=== PATIENT | female | born 1950 | race Hispanic/Latino ===

== ENCOUNTER 2018-03-26 09:17 | Emergency (ER) | payer OTHER ==
[2018-03-26] MEDS ORDERED: ACETAMINOPHEN 325 MG TABLET ONE (10:01)
[2018-03-26 10:16] LABS: Absolute Lymphocytes (CBC) 2.1 K/uL (0.7-4.9); Absolute Monocytes 0.6 K/uL (0.1-1.3); Absolute Neutrophil 9.5 K/uL (1.8-8.0); Basophils % 0.6 % (0-1.3); Eosinophils % 0.5 % (0-4.4); Hematocrit 31.2 % (36.0-45.0); MCH 31.3 pg (27.0-35.0); MCV 92.6 fL (80-100); MPV 6.9 fL (7.6-11.3); Monocytes % 4.8 % (3.3-12.3); RBC Red Blood Cell Count 3.37 M/uL (3.86-4.86)
[2018-03-26 10:19] LABS: Urine Blood TRACE (NEG); Urine Glucose NEGATIVE (NEG); Urine Protein TRACE (NEG); Urine pH 5.5 (5.0-7.0)
[2018-03-26 10:32] LABS: Albumin 3.3 g/dL (3.4-5.0); Bilirubin Direct 0.1 mg/dL (0-0.2); Bilirubin Total 0.4 mg/dL (0.2-1.0); Potassium 3.8 mmol/L (3.5-5.1)
[2018-03-26 10:40] LABS: Urine Amorphous Sediment TRACE /HPF (NONE SEEN); Urine Bacteria <20 /HPF (<20); Urine Culture Reflex Order NOT NEEDED; Urine Mucus SLIGHT /HPF (NONE SEEN)
--- NOTE | 2018-03-26 12:31 | RAD REPORT ---
EXAM DESCRIPTION: CTAbdomen Pelvis W Contrast - 03/26/2018 12:10 pm CLINICAL HISTORY: Abdominal pain. ABD PAIN COMPARISON: No comparisons TECHNIQUE: Biphasic CT imaging of the abdomen and pelvis was performed with 100 ml non-ionic IV cont rast. All CT scans are performed using dose optimization technique as appropriate and may include automated exposure control or mA/KV adjustment according to patient size. FINDINGS: The lung bases are clear.Small hiatal hernia. The liver, spleen, pancreas and kidneys are within normal limits. Mild thickening of both adrenal gla nds noted. No bowel obstruction, free air, free fluid or abscess. 5 cm length of sigmoid colon demonstrates mode rate wall thickening and surrounding inflammatory changes. Several diverticula are present in this re gion. The appendix is not identified as a discrete structure, however, no secondary findings of appen dicitis are identified. No evidence of significant lymphadenopathy. No suspicious bony findings. Lumbar degenerative changes are present, mild. IMPRESSION: 5 cm length of acute diverticulitis involving the sigmoid colon. No evidence of peridive rticular abscess.
[2018-03-26] MEDS ORDERED: METRONIDAZOLE 500mg IVPB 500 MG/100 ML BAG IV ONE (12:51)
[2018-03-26] MEDS ORDERED: CIPROFLOXACIN 400mg IV 400 MG/200 ML BAG IV ONE (12:51)
--- NOTE | 2018-03-26 12:55 | ER ---
Nurse's Notes [facility] Name: Sunni Nava Age: 67 yrs Sex: Female : 1950 Arrival Date: 03/26/2018 Time: 09:21 Bed 17 Private MD: John Justice R Diagnosis: Diverticulitis of large intestine without perforation or abscess without bleeding Presentation: 03/26 09:25 Presenting complaint: Patient states: fever up to 101.0 F, lower abd pain, and nausea aa5 since last night. Pt denies vomiting, denies diarrhea. 09:25 Transition of care: patient was not received from another setting of care. Onset of aa5 symptoms was March 2018. Risk Assessment: Do you want to hurt yourself or someone else? Patient reports no desire to harm self or others. Initial Sepsis Screen: Does the patient meet any 2 criteria? No. Patient's initial sepsis screen is negative. Does the patient have a suspected source of infection? No. Patient's initial sepsis screen is negative. Care prior to arrival: None. 09:25 Method Of Arrival: Ambulatory aa5 09:25 Acuity: KIN 3 aa5 Triage Assessment: 09:40 General: Appears in no apparent distress. uncomfortable, Behavior is calm, cooperative, hj appropriate for age. Pain: Complains of pain in abdomen. GI: Reports lower abdominal pain, upper abdominal pain. Historical: - Allergies: : No Known Allergies; aa5 - Home Meds: :27 citalopram 40 mg tab 1 tab once daily [Active]; lisinopril 30 mg Oral tab 1 tab once aa5 daily [Active]; simvastatin 40 mg Oral tab 1 tab once daily [Active]; - PMHx: 09:27 Hypertension; aa5 - PSHx: :27 ; aa5 - Immunization history:: Adult Immunizations unknown. - Social history:: Smoking status: Patient/guardian denies using tobacco. - Ebola Screening: : No symptoms or risks identified at this time. - Family history:: not pertinent. - Hospitalizations: : No recent hospitalization is reported. Screenin:40 Abuse screen: Denies threats or abuse. Denies injuries from another. Nutritional hj screening: No deficits noted. Tuberculosis screening: No symptoms or risk factors identified. Fall Risk None identified. Assessment: 09:36 General: Appears Behavior is calm, cooperative, appropriate for age. Pain: Complains of sc1 pain in abdomen Pain radiates to back Pain currently is 10 out of 10 on a pain scale. Quality of pain is described as sharp, Pain began 1 week ago Is continuous, Alleviated by rest, Aggravated by walking. Neuro: No deficits noted. Cardiovascular: Denies chest pain, nausea, shortness of breath, vomiting. Respiratory: Breath sounds are clear. GI: Last BM was March 26, 2018. Bowel sounds present X 4 quads. Abd is soft Abdomen is tender to palpation Reports lower abdominal pain, Patient currently denies constipation, diarrhea, nausea, vomiting. 09:41 GI: Bowel sounds present X 4 quads. Abd is soft and non tender. hj 10:10 Reassessment: oral contrast given to patient at this time, and taken all at this time. sc1 CT notified. 11:52 Reassessment: awaiting for CT:. hj 12:05 Reassessment: wheeled to CT:. hj 13:56 Reassessment: Patient and/or family updated on plan of care and expected duration. Pain hj level reassessed. Patient is alert, oriented x 3, equal unlabored respirations, skin warm/dry/pink. D/C instructions given;. Vital Signs: 09:27 BP 147 / 63; Pulse 76; Resp 18 S; Temp 99.3(O); Pulse Ox 97% on R/A; Weight 90.72 kg aa5 (R); Height 5 ft. 1 in. (154.94 cm) (R); Pain 10/10; 10:41 BP 139 / 70; Resp 16; Temp 98.6; Pain 10/10; sc1 11:44 BP 127 / 77; Pulse 88; Resp 16; Pulse Ox 83% on R/A; sc1 12:30 BP 128 / 75; Pulse 89; Resp 18; Pulse Ox 100% on R/A; hj 13:56 BP 126 / 72; Pulse 85; Resp 18; Pulse Ox 100% on R/A; hj 09:27 Body Mass Index 37.79 (90.72 kg, 154.94 cm) aa5 ED Course: 09:21 Patient arrived in ED. mr 09:21 John Justice MD is Private Physician. mr 09:25 Arm band placed on Patient placed in an exam room, on a stretcher. aa5 09:31 Ananda Roe RN is Primary Nurse. hj 09:31 Ramiro Cotton MD is Attending Physician. rn 09:35 Triage completed. aa5 09:41 Patient has correct armband on for positive identification. Placed in gown. Bed in low hj position. Call light in reach. Side rails up X 1. 09:41 Inserted saline lock: 20 gauge in right antecubital area, using aseptic technique. dh3 Blood collected. 09:45 Urine collected: clean catch specimen, cloudy. dh3 11:41 Ananda Roe RN is Primary Nurse. hj 12:[address] via wheelchair. sw 12:10 CT Abd/Pelvis - W/Contrast In Process Unspecified. EDSC 12:12 CT completed. Patient tolerated procedure well. Patient moved back from CT. 12:54 John Justice MD is Referral Physician. rn 13:55 No provider procedures requiring assistance completed. IV discontinued, intact, hj bleeding controlled, No redness/swelling at site. Pressure dressing applied. Administered Medications: 10:01 Drug: Tylenol 650 mg Route: PO; sc1 10:23 Follow up: Response: No adverse reaction hj 13:02 Drug: Cipro 400 mg Volume: 200 ml; Route: IVPB; Infused Over: 60 mins; Site: right sc1 antecubital; 13:54 Follow up: IV Status: Completed infusion hj 13:54 Drug: Flagyl 500 mg Volume: 100 ml; Route: IVPB; Rate: 200 ml/hr; Infused Over: 30 hj mins; Site: right antecubital; 13:54 Follow up: IV Status: Completed infusion Outcome: 12:55 Discharge ordered by . rn 13:55 Discharged to home ambulatory. hj 13:55 Condition: stable 13:55 Discharge instructions given to patient, Instructed on discharge instructions, follow up and referral plans. medication usage, Demonstrated understanding of instructions, follow-up care, medications, Prescriptions given X 4. 13:56 Patient left the ED. Addendum: 03/29/2018 10:13 Addendum: Culture Results: Positive urine culture. Phone call Attempt #1 not a working s s number. Signatures: Dispatcher [facility] Jacqueline Pradhan mr Ramiro Cotton MD MD rn Calderon, Audri, RN RN aa5 Jordyn Hammer RN RN Steph Gallegos Henry, RN RN Radha Epps formerly [facility], 1928–1983 Kadie Jones RN RN sc1 Corrections: (The following items were deleted from the chart) 03/26 09:50 09:49 Inserted saline lock: 20 gauge in right antecubital area, using aseptic dh3 technique. Blood collected. formerly [facility], [facility]
--- NOTE | 2018-03-26 12:55 | EDPHYS ---
Physician Documentation [facility] Name: Sunni Nava Age: 67 yrs Sex: Female : 1950 Arrival Date: 03/26/2018 Time: 09:21 Bed 17 Private MD: John Justice R ED Physician Ramiro Cotton HPI: 03/26 10:02 This 67 yrs old Female presents to ER via Ambulatory with complaints of rn Abdominal Pain. 10:02 The patient presents with abdominal pain in the lower abdomen. Onset: The rn symptoms/episode began/occurred last night. The symptoms do not radiate. Associated signs and symptoms: Pertinent positives: fever, Pertinent negatives: blood in stools, chest pain, diarrhea, headache, hematuria, shortness of breath, vomiting. The symptoms are described as intermittent, sharp. Modifying factors: The symptoms are alleviated by nothing, the symptoms are aggravated by touching the area. Severity of pain: At its worst the pain was mild in the emergency department the pain is unchanged. The patient has not experienced similar symptoms in the past. The patient has not recently seen a physician. Historical: - Allergies: 09: No Known Allergies; aa5 - Home Meds: 09:27 citalopram 40 mg tab 1 tab once daily [Active]; lisinopril 30 mg Oral tab 1 tab once aa5 daily [Active]; simvastatin 40 mg Oral tab 1 tab once daily [Active]; - PMHx: 09: Hypertension; aa5 - PSHx: :27 ; aa5 - Immunization history:: Adult Immunizations unknown. - Social history:: Smoking status: Patient/guardian denies using tobacco. - Ebola Screening: : No symptoms or risks identified at this time. - Family history:: not pertinent. - Hospitalizations: : No recent hospitalization is reported. ROS: 10:02 Constitutional: Negative for fever, chills, and weight loss, Eyes: Negative for injury, rn pain, redness, and discharge, Neck: Negative for injury, pain, and swelling, Cardiovascular: Negative for chest pain, palpitations, and edema, Respiratory: Negative for shortness of breath, cough, wheezing, and pleuritic chest pain, Abdomen/GI: + abd pain, no vomiting/diarrhea MS/Extremity: Negative for injury and deformity, Skin: Negative for injury, rash, and discoloration, Neuro: Negative for headache, weakness, numbness, tingling, and seizure. Exam: 10:02 Constitutional: This is a well developed, well nourished patient who is awake, alert, rn and in no acute distress. Head/Face: Normocephalic, atraumatic. Eyes: Pupils equal round and reactive to light, extra-ocular motions intact. Lids and lashes normal. Conjunctiva and sclera are non-icteric and not injected. Cornea within normal limits. Periorbital areas with no swelling, redness, or edema. Cardiovascular: Regular rate and rhythm with a normal S1 and S2. No gallops, murmurs, or rubs. Normal PMI, no JVD. No pulse deficits. Respiratory: Lungs have equal breath sounds bilaterally, clear to auscultation and percussion. No rales, rhonchi or wheezes noted. No increased work of breathing, no retractions or nasal flaring. Abdomen/GI: soft, mild RLQ/suprapubic/LLQ tenderness, no rebound MS/ Extremity: Pulses equal, no cyanosis. Neurovascular intact. Full, normal range of motion. Equal circumference. Neuro: Awake and alert, GCS 15, oriented to person, place, time, and situation. Cranial nerves II-XII grossly intact. Motor strength 5/5 in all extremities. Sensory grossly intact. Vital Signs: 09:27 BP 147 / 63; Pulse 76; Resp 18 S; Temp 99.3(O); Pulse Ox 97% on R/A; Weight 90.72 kg aa5 (R); Height 5 ft. 1 in. (154.94 cm) (R); Pain 10/10; 10:41 BP 139 / 70; Resp 16; Temp 98.6; Pain 10/10; sc1 11:44 BP 127 / 77; Pulse 88; Resp 16; Pulse Ox 83% on R/A; sc1 12:30 BP 128 / 75; Pulse 89; Resp 18; Pulse Ox 100% on R/A; hj 13:56 BP 126 / 72; Pulse 85; Resp 18; Pulse Ox 100% on R/A; hj 09:27 Body Mass Index 37.79 (90.72 kg, 154.94 cm) aa5 MDM: 09:31 Patient medically screened. rn 12:53 Differential diagnosis: diverticulitis, non-specific abd pain, Ureterolithiasis, rn urinary tract infection. Data reviewed: vital signs, nurses notes, lab test result(s), radiologic studies, CT scan, and as a result, I will discharge patient. Counseling: I had a detailed discussion with the patient and/or guardian regarding: the historical points, exam findings, and any diagnostic results supporting the discharge/admit diagnosis, lab results, radiology results, the need for outpatient follow up, to return to the emergency department if symptoms worsen or persist or if there are any questions or concerns that arise at home. Response to treatment: the patient's symptoms have markedly improved after treatment, and as a result, I will discharge patient. Special discussion: Based on the patient's Hx, exam, and Dx evaluation, there is no indication for emergent surgery or inpatient Tx. It is understood by the patient/guardian that if the Sx's persist or worsen they need to return immediately for re-evaluation. I discussed with the patient/guardian in detail that at this point there is no indication for admission to the hospital. It is understood, however, that if the symptoms persist or worsen the patient needs to return immediately for re-evaluation. 03/26 09:55 Order name: Basic Metabolic Panel; Complete Time: 10:50 03/26 09:55 Order name: CBC with Diff; Complete Time: 10:50 03/26 09:55 Order name: Hepatic Function; Complete Time: 10:50 03/26 09:55 Order name: Lipase; Complete Time: 10:50 03/26 09:55 Order name: Urine Microscopic Only; Complete Time: 10:50 03/26 09:55 Order name: Urine Culture; Complete Time: 07:57 03/26 09:55 Order name: IV Saline Lock; Complete Time: 09:56 03/26 09:55 Order name: Labs collected and sent; Complete Time: 09:56 03/26 09:55 Order name: Urine Dipstick-Ancillary (obtain specimen); Complete Time: 09:56 03/26 09:55 Order name: CT Abd/Pelvis - W/Contrast; Complete Time: 12:40 03/26 10:07 Order name: Urine Dipstick--Ancillary (enter results); Complete Time: 10:50 bd Administered Medications: 10:01 Drug: Tylenol 650 mg Route: PO; sc1 10:23 Follow up: Response: No adverse reaction hj 13:02 Drug: Cipro 400 mg Volume: 200 ml; Route: IVPB; Infused Over: 60 mins; Site: right sc1 antecubital; 13:54 Follow up: IV Status: Completed infusion hj 13:54 Drug: Flagyl 500 mg Volume: 100 ml; Route: IVPB; Rate: 200 ml/hr; Infused Over: 30 hj mins; Site: right antecubital; 13:54 Follow up: IV Status: Completed infusion Disposition: 18 12:55 Discharged to Home. Impression: Diverticulitis of large intestine without perforation or abscess without bleeding. - Condition is Stable. - Discharge Instructions: Diverticulitis. - Prescriptions for Zofran ODT 4 mg Oral tablet,disintegrating - place 1 tablet by TRANSLINGUAL route every 8-10 hours As needed; 20 tablet. Flagyl 500 mg Oral Tablet - take 1 tablet by ORAL route every 8 hours for 10 days; 30 tablet. Tylenol- Codeine #3 300-30 mg Oral Tablet - take 1 tablet by ORAL route every 6 hours As needed; 15 tablet. Cipro 500 mg Oral Tablet - take 1 tablet by ORAL route every 12 hours for 10 days; 20 tablet. - Medication Reconciliation Form, Thank You Letter, Antibiotic Education, Prescription Opioid Use form. - Follow up: John Justice MD; When: As needed; Reason: Recheck today's complaints, Re-evaluation by your physician. - Problem is new. - Symptoms have improved. Signatures: Dispatcher [employer] EDMS Ramiro Cotton MD MD rn Calderon, Audri RN RN aa5 Carolina Degroot NP RECEPTIONIST CLERK 1 Ananda Roe RN RN Kadie Jones RN RN ne1 Corrections: (The following items were deleted from the chart) 13:56 12:55 03/26/2018 12:55 Discharged to Home. Impression: Diverticulitis of large hj intestine without perforation or abscess without bleeding. Condition is Stable. Forms are Medication Reconciliation Form, Thank You Letter, Antibiotic Education, Prescription Opioid Use. Follow up: John Justice; When: As needed; Reason: Recheck today's complaints, Re-evaluation by your physician. Problem is new. Symptoms have improved. rn
[2018-03-26 14:04] VITALS: TEMP 98.6
[2018-03-26 14:06] VITALS: O2SAT 100
[2018-03-26 14:07] VITALS: BP 126/72
== END 2018-03-26 13:56 | disposition home or self-care (01) ==
LOC: ER 09:17
DX: K57.32 Diverticulitis of large intestine without perforation or abscess without bleeding (principal); I10 Essential (primary) hypertension
CPT/HCPCS: 36415; 74177; 80048; 80076; 83690; 85025; 87077; 87086; 87088; 87186; 96365; 96375; 99284; J0744; Q9967; 81003; 81015

== ENCOUNTER 2018-07-07 19:50 | Emergency (ER) | payer OTHER ==
[2018-07-07] MEDS ORDERED: TRAMADOL HCL 50 MG TAB ONE (20:29)
[2018-07-07 20:30] LABS: Urine Blood NEGATIVE (NEG); Urine Glucose NEGATIVE (NEG); Urine Protein NEGATIVE (NEG)
[2018-07-07 20:43] LABS: Urine Bacteria <20 /HPF (<20); Urine Culture Reflex Order NOT NEEDED; Urine RBC NONE SEEN /HPF (NONE SEEN)
[2018-07-07 20:44] LABS: Urine Mucus 1+ /HPF (NONE SEEN)
--- NOTE | 2018-07-07 21:15 | EDPHYS ---
Physician Documentation [facility] Name: Sunni Nava Age: 67 yrs Sex: Female : 1950 Arrival Date: 07/07/2018 Time: 19:52 Bed 24 Private MD: John Justice R ED Physician Wagner Rivas HPI: 07/07 20:20 This 67 yrs old Female presents to ER via Ambulatory with complaints of Back snw Pain. 20:20 The patient presents with pain that is acute, with no known mechanism of injury. The snw symptoms are located in the lumbar area, left mid back and right mid back. Onset: The symptoms/episode began/occurred suddenly. The pain radiates to the left leg. The problem was sustained from unknown cause. Severity of symptoms: At their worst the symptoms were moderate. It is unknown whether or not the patient has had similar symptoms in the past. It is unknown whether or not the patient has recently seen a physician. pt thinks she may have a UTI. Historical: - Allergies: 20:07 No Known Drug Allergies; tl3 - Home Meds: 20:07 citalopram 40 mg tab 1 tab once daily [Active]; lisinopril 30 mg Oral tab 1 tab once tl3 daily [Active]; simvastatin 40 mg Oral tab 1 tab once daily [Active]; - PMHx: 20:07 Hypertension; tl3 - PSHx: 20:07 ; tl3 - Immunization history:: Adult Immunizations up to date, Flu vaccine is up to date. - Social history:: Smoking status: Patient/guardian denies using tobacco, never smoked. - Ebola Screening: : No symptoms or risks identified at this time. ROS: 20:18 Constitutional: Negative for fever, chills, and weight loss, Eyes: Negative for injury, snw pain, redness, and discharge, ENT: Negative for injury, pain, and discharge, Neck: Negative for injury, pain, and swelling, Cardiovascular: Negative for chest pain, palpitations, and edema, Respiratory: Negative for shortness of breath, cough, wheezing, and pleuritic chest pain, Abdomen/GI: Negative for abdominal pain, nausea, vomiting, diarrhea, and constipation, : Negative for injury, bleeding, discharge, and swelling, MS/Extremity: Negative for injury and deformity, Skin: Negative for injury, rash, and discoloration, Neuro: Negative for headache, weakness, numbness, tingling, and seizure, Psych: Negative for depression, anxiety, suicide ideation, homicidal ideation, and hallucinations. 20:18 Back: Positive for pain at rest, pain with movement, of the lumbar area, left mid back and right mid back. Exam: 20:18 Constitutional: This is a well developed, well nourished patient who is awake, alert, snw and in no acute distress. Head/Face: Normocephalic, atraumatic. Eyes: Pupils equal round and reactive to light, extra-ocular motions intact. Lids and lashes normal. Conjunctiva and sclera are non-icteric and not injected. Cornea within normal limits. Periorbital areas with no swelling, redness, or edema. ENT: Nares patent. No nasal discharge, no septal abnormalities noted. Tympanic membranes are normal and external auditory canals are clear. Oropharynx with no redness, swelling, or masses, exudates, or evidence of obstruction, uvula midline. Mucous membranes moist. Neck: Trachea midline, no thyromegaly or masses palpated, and no cervical lymphadenopathy. Supple, full range of motion without nuchal rigidity, or vertebral point tenderness. No Meningismus. Chest/axilla: Normal chest wall appearance and motion. Nontender with no deformity. No lesions are appreciated. Cardiovascular: Regular rate and rhythm with a normal S1 and S2. No gallops, murmurs, or rubs. Normal PMI, no JVD. No pulse deficits. Respiratory: Lungs have equal breath sounds bilaterally, clear to auscultation and percussion. No rales, rhonchi or wheezes noted. No increased work of breathing, no retractions or nasal flaring. Abdomen/GI: Soft, non-tender, with normal bowel sounds. No distension or tympany. No guarding or rebound. No evidence of tenderness throughout. Skin: Warm, dry with normal turgor. Normal color with no rashes, no lesions, and no evidence of cellulitis. MS/ Extremity: Pulses equal, no cyanosis. Neurovascular intact. Full, normal range of motion. Neuro: Awake and alert, GCS 15, oriented to person, place, time, and situation. Cranial nerves II-XII grossly intact. Motor strength 5/5 in all extremities. Sensory grossly intact. Cerebellar exam normal. Normal gait. 20:18 Back: pain, that is moderate, of the lumbar area, left mid back and right mid back, ROM is normal, CVA tenderness, is absent, muscle spasm, is not present. Vital Signs: 20:07 BP 127 / 61; Pulse 67; Resp 18; Temp 98.0(O); Pulse Ox 99% on R/A; Weight 85.73 kg; tl3 Height 5 ft. 7 in. (170.18 cm); 20:28 BP 124 / 64; Pulse 67; Resp 18; Pulse Ox 97% on R/A; Pain 7/10; mg2 21:11 BP 114 / 68; Pulse 67; Resp 18; Pulse Ox 100% on R/A; mg2 21:26 BP 114 / 69; Pulse 70; Resp 17; Pulse Ox 100% on R/A; Pain 2/10; mg2 20:07 Body Mass Index 29.60 (85.73 kg, 170.18 cm) tl3 MDM: 20:10 Patient medically screened. snw 21:15 Data reviewed: vital signs, nurses notes. Data interpreted: Pulse oximetry: on room air snw is 100 %. Interpretation: normal. Counseling: I had a detailed discussion with the patient and/or guardian regarding: the historical points, exam findings, and any diagnostic results supporting the discharge/admit diagnosis, lab results, the need for outpatient follow up, to return to the emergency department if symptoms worsen or persist or if there are any questions or concerns that arise at home. Special discussion: Based on the history and exam findings, there is no indication for further emergent testing or inpatient evaluation. I discussed with the patient/guardian the need to see the primary care provider for further evaluation of the symptoms. 07/07 20:18 Order name: Urine Culture snw 07/07 20:18 Order name: Urine Microscopic Only; Complete Time: 20:49 snw 07/07 20:19 Order name: Urine Culture EDNJ 07/07 20:25 Order name: Urine Dipstick--Ancillary (enter results); Complete Time: 20:31 ms 07/07 20:18 Order name: Urine Dipstick-Ancillary (obtain specimen); Complete Time: 20:20 snw Administered Medications: 20:26 Drug: UltRAM 50 mg Route: PO; mg2 21:26 Follow up: Response: No adverse reaction; Marked relief of symptoms mg2 21:23 Drug: TORadol 60 mg Route: IM; Site: left gluteus; mg2 21:26 Follow up: Response: No adverse reaction; Medication administered at discharge. mg2 21:23 Drug: DiFLUcan 150 mg Route: PO; mg2 21:26 Follow up: Response: No adverse reaction; Medication administered at discharge. mg2 Disposition: 07/08 06:06 Co-signature as Attending Physician, Wagner Rivas MD I agree with the assessment and vaibhav plan of care. Disposition: 07/07/18 21:14 Discharged to Home. Impression: Dysuria, Low back pain. - Condition is Stable. - Discharge Instructions: Back Pain, Adult, Dysuria, Musculoskeletal Pain, Cryotherapy, Heat Therapy. - Prescriptions for Diclofenac Sodium 75 mg Oral Tablet Sustained Release - take 1 tablet by ORAL route 2 times per day; 30 tablet. orphenadrine citrate 100 mg Oral Tablet Sustained Release - take 1 tablet by ORAL route 2 times per day As needed; 20 tablet. - Medication Reconciliation Form, Thank You Letter, Antibiotic Education, Prescription Opioid Use form. - Follow up: John Justice MD; When: 2 - 3 days; Reason: Recheck today's complaints, Continuance of care, Re-evaluation by your physician. Follow up: Emergency Department; When: As needed; Reason: Worsening of condition. Signatures: Dispatcher [employer] Wagner Hardin MD MD cha Therrien, Shelly, BLUEPRINT REPRODUCER-C BLUEPRINT REPRODUCER-Csnw Christine Sharif RN RN tl3 Darell Grant RN RN mg2 Corrections: (The following items were deleted from the chart) 07/07 21:27 21:14 07/07/2018 21:14 Discharged to Home. Impression: Dysuria; Low back pain. mg2 Condition is Stable. Forms are Medication Reconciliation Form, Thank You Letter, Antibiotic Education, Prescription Opioid Use. Follow up: oJhn Justice; When: 2 - 3 days; Reason: Recheck today's complaints, Continuance of care, Re-evaluation by your physician. Follow up: Emergency Department; When: As needed; Reason: Worsening of condition. snw
--- NOTE | 2018-07-07 21:15 | ER ---
Nurse's Notes [facility] Name: Sunni Nava Age: 67 yrs Sex: Female : 1950 Arrival Date: 07/07/2018 Time: 19:52 Bed 24 Private MD: John Justice R Diagnosis: Dysuria;Low back pain Presentation: 07/07 20:04 Presenting complaint: Patient states: back pain that started yesterday, pain with tl3 urination. Transition of care: patient was not received from another setting of care. Onset of symptoms was July 06, 2018. Risk Assessment: Do you want to hurt yourself or someone else? Patient reports no desire to harm self or others. Initial Sepsis Screen: Does the patient meet any 2 criteria? No. Patient's initial sepsis screen is negative. Does the patient have a suspected source of infection? No. Patient's initial sepsis screen is negative. Care prior to arrival: None. 20:04 Method Of Arrival: Ambulatory tl3 20:04 Acuity: KIN 3 tl3 Triage Assessment: 20:07 General: Appears uncomfortable, Behavior is calm, cooperative, appropriate for age. tl3 Pain: Complains of pain in left low back and right low back. Historical: - Allergies: 20:07 No Known Drug Allergies; tl3 - Home Meds: 20:07 citalopram 40 mg tab 1 tab once daily [Active]; lisinopril 30 mg Oral tab 1 tab once tl3 daily [Active]; simvastatin 40 mg Oral tab 1 tab once daily [Active]; - PMHx: 20:07 Hypertension; tl3 - PSHx: 20:07 ; tl3 - Immunization history:: Adult Immunizations up to date, Flu vaccine is up to date. - Social history:: Smoking status: Patient/guardian denies using tobacco, never smoked. - Ebola Screening: : No symptoms or risks identified at this time. Screenin:18 Abuse screen: Denies threats or abuse. Denies injuries from another. Nutritional mg2 screening: No deficits noted. Tuberculosis screening: No symptoms or risk factors identified. Fall Risk None identified. Assessment: 20:26 General: Appears in no apparent distress. comfortable, Behavior is calm, cooperative. mg2 Pain: Complains of pain in lower back Pain radiates to neck and head. Pain: Pain currently is 7 out of 10 on a pain scale. Quality of pain is described as aching, Pain began gradually, 2-3 days ago. Neuro: Level of Consciousness is awake, alert, obeys commands, Oriented to person, place, time, situation. Cardiovascular: Capillary refill < 3 seconds Patient's skin is warm and dry. Respiratory: Airway is patent Respiratory effort is even, unlabored, Respiratory pattern is regular, symmetrical. GI: No signs and/or symptoms were reported involving the gastrointestinal system. : Reports burning with urination. EENT: No deficits noted. Derm: Skin is intact, is healthy with good turgor, Skin is pink, warm \T\ dry. normal. Musculoskeletal: Circulation, motion, and sensation intact. Capillary refill < 3 seconds. Vital Signs: 20:07 BP 127 / 61; Pulse 67; Resp 18; Temp 98.0(O); Pulse Ox 99% on R/A; Weight 85.73 kg; tl3 Height 5 ft. 7 in. (170.18 cm); 20:28 BP 124 / 64; Pulse 67; Resp 18; Pulse Ox 97% on R/A; Pain 7/10; mg2 21:11 BP 114 / 68; Pulse 67; Resp 18; Pulse Ox 100% on R/A; mg2 21:26 BP 114 / 69; Pulse 70; Resp 17; Pulse Ox 100% on R/A; Pain 2/10; mg2 20:07 Body Mass Index 29.60 (85.73 kg, 170.18 cm) tl3 ED Course: 19:52 Patient arrived in ED. am2 19:53 John Justice MD is Private Physician. am2 20:05 Triage completed. tl3 20:07 Arm band placed on left wrist. tl3 20:09 Darell Grant, SHERON is Primary Nurse. mg2 20:10 Albina Summers FNP-C is PHCP. snw 20:10 Wagner Rivas MD is Attending Physician. snw 20:19 No provider procedures requiring assistance completed. mg2 20:28 Patient has correct armband on for positive identification. Pulse ox on. NIBP on. mg2 21:13 John Justice MD is Referral Physician. snw 21:27 Patient did not have IV access during this emergency room visit. mg2 Administered Medications: 20:26 Drug: UltRAM 50 mg Route: PO; mg2 : Follow up: Response: No adverse reaction; Marked relief of symptoms mg2 : Drug: TORadol 60 mg Route: IM; Site: left gluteus; mg2 : Follow up: Response: No adverse reaction; Medication administered at discharge. mg2 : Drug: DiFLUcan 150 mg Route: PO; mg2 : Follow up: Response: No adverse reaction; Medication administered at discharge. mg2 Outcome: 21:14 Discharge ordered by MD. melo : Discharged to home ambulatory. mg2 : Condition: stable : Discharge instructions given to patient, Instructed on discharge instructions, follow up and referral plans. Demonstrated understanding of instructions, follow-up care, medications, Prescriptions given X 2. :27 Patient left the ED. mg2 Signatures: Albina Summers, INTAKE COUNSELOR-C INTAKE COUNSELOR-Csnw Archana Stacy am2 Christine Sharif, RN RN tl3 Darell Grant RN RN mg2
[2018-07-07] MEDS ORDERED: KETOROLAC 30 MG/ML INJ ONE (21:22)
[2018-07-07] MEDS ORDERED: FLUCONAZOLE 100 MG TAB ONE (21:22)
[2018-07-07 21:33] VITALS: TEMP 98
[2018-07-07 21:36] VITALS: O2SAT 100
[2018-07-07 21:37] VITALS: BP 114/69
== END 2018-07-07 21:27 | disposition home or self-care (01) ==
LOC: ER 19:50
DX: M54.5 Low back pain (principal); R30.0 Dysuria; I10 Essential (primary) hypertension; Z79.899 Other long term (current) drug therapy
CPT/HCPCS: 81003; 81015; 87086; 87088; 96372; 99283

== ENCOUNTER 2018-12-21 07:43 | Emergency (ER) | payer OTHER ==
--- OUTSIDE RECORDS SUMMARY | 2018-12-21 07:45 | XMS REPORT ---
:1950 [facility] Address [address] [place] [address] Dr. Arellano [address] [place] [id number] Care Team Providers Name Role Phone Unavailable Unavailable Unavailable Problems This patient has no known problems. Allergies, Adverse Reactions, Alerts This patient has no known allergies or adverse reactions. Medications This patient has no known medications.
[2018-12-21 09:01] LABS: Urine Bacteria 20-50 /HPF (<20); Urine Culture Reflex Order NOT NEEDED; Urine Mucus LIGHT /HPF (NONE SEEN); Urine RBC <5 /HPF (NONE SEEN)
--- NOTE | 2018-12-21 09:15 | EDPHYS ---
Physician Documentation [facility] Name: Sunni Nava Age: 68 yrs Sex: Female : 1950 Arrival Date: 12/21/2018 Time: 07:46 Bed 13 Private MD: John Justice R ED Physician Wagner Rivas HPI: 12/21 08:20 This 68 yrs old Female presents to ER via Ambulatory with complaints of Flank cp Pain. 08:20 The patient presents with flank pain, on the right, urinary symptoms, dysuria. Onset: cp The symptoms/episode began/occurred 2 day(s) ago. Associated signs and symptoms: Pertinent negatives: constipation, diarrhea, fever, vomiting. Severity of symptoms: in the emergency department the symptoms are unchanged, despite home interventions. The patient has experienced similar episodes in the past, today's symptoms are similar, to when the patient was apparently diagnosed with UTI. Historical: - Allergies: 07:56 No Known Allergies; hb - Home Meds: 07:56 citalopram 40 mg tab 1 tab once daily [Active]; lisinopril 30 mg Oral tab 1 tab once hb daily [Active]; simvastatin 40 mg Oral tab 1 tab once daily [Active]; - PMHx: 07:56 Hypertension; hb - PSHx: 07:56 ; hb - Immunization history:: Adult Immunizations up to date. - Social history:: Smoking status: Patient/guardian denies using tobacco. - Ebola Screening: : No symptoms or risks identified at this time. ROS: 08:25 Constitutional: Negative for body aches, chills, fever, poor PO intake. cp 08:25 Eyes: Negative for injury, pain, redness, and discharge. cp 08:25 ENT: Negative for sore throat, difficulty swallowing, difficulty handling secretions. 08:25 Cardiovascular: Negative for chest pain, palpitations. 08:25 Respiratory: Negative for cough, shortness of breath, wheezing. 08:25 Abdomen/GI: Positive for abdominal pain, Negative for vomiting, diarrhea, constipation. 08:25 : Positive for flank pain, burning with urination. 08:25 Neuro: Positive for headache, Negative for altered mental status, weakness. 08:25 All other systems are negative. Exam: 08:30 Constitutional: The patient appears in no acute distress, alert, awake, cp non-diaphoretic, non-toxic, well developed, well nourished. 08:30 Head/Face: Normocephalic, atraumatic. cp 08:30 Eyes: Periorbital structures: appear normal, Conjunctiva: normal, no exudate, no injection, Sclera: no appreciated abnormality, Lids and lashes: appear normal, bilaterally. 08:30 ENT: External ear(s): are unremarkable, Nose: is normal, Mouth: Lips: moist, Oral mucosa: moist. 08:30 Chest/axilla: Inspection: normal. 08:30 Cardiovascular: Rate: normal. 08:30 Respiratory: the patient does not display signs of respiratory distress, Respirations: normal, no use of accessory muscles, no retractions, no splinting, no tachypnea, labored breathing, is not present. 08:30 Abdomen/GI: Inspection: abdomen appears normal, Bowel sounds: active, all quadrants, Palpation: soft, in all quadrants, mild abdominal tenderness, in the right upper quadrant and right lower quadrant, rebound tenderness, is not appreciated, voluntary guarding, is not appreciated, involuntary guarding, is not appreciated. 08:30 Back: CVA tenderness, is absent. Vital Signs: 07:54 BP 127 / 56; Pulse 86; Resp 16; Temp 98.5; Pulse Ox 100% on R/A; Pain 8/10; hb 08:55 BP 121 / 61; Pulse 78; Resp 16; Pulse Ox 99% on R/A; rb1 MDM: 07:53 Patient medically screened. [facility] 08:30 Differential diagnosis: appendicitis, urinary tract infection, kidney stone, cp pyelonephritis. 09:12 Data reviewed: vital signs, nurses notes, lab test result(s), and as a result, I will cp discharge patient. 09:12 Counseling: I had a detailed discussion with the patient and/or guardian regarding: the cp historical points, exam findings, and any diagnostic results supporting the discharge/admit diagnosis, lab results, to return to the emergency department if symptoms worsen or persist or if there are any questions or concerns that arise at home. 12/21 08:15 Order name: Urine Microscopic Only; Complete Time: 09:02 12/21 09:02 Interpretation: Normal except: UWBC 20-50; UBACT 20-50; SQEPI 5-10. 12/21 08:31 Order name: Urine Culture cp 12/21 08:15 Order name: Urine Dipstick-Ancillary (obtain specimen); Complete Time: 08:37 cp Administered Medications: No medications were administered Disposition: 12/22 08:01 Co-signature as Attending Physician, Wagner Rivas MD I agree with the assessment and [facility] plan of care. Disposition: 12/21/18 09:14 Discharged to Home. Impression: Urinary tract infection, site not specified. - Condition is Stable. - Discharge Instructions: Urinary Tract Infection, Adult. - Prescriptions for Pyridium 200 mg Oral Tablet - take 1 tablet by ORAL route every 8 hours for 3 days; 6 tablet. Bactrim DS 800- 160 mg Oral Tablet - take 1 tablet by ORAL route every 12 hours for 7 days; 14 tablet. - Medication Reconciliation Form, Thank You Letter, Antibiotic Education, Prescription Opioid Use form. - Follow up: Private Physician; When: 2 - 3 days; Reason: Recheck today's complaints. - Problem is new. - Symptoms have improved. Signatures: Dispatcher [employer] EDOH Wagner Rivas MD MD cha Page, Corey, MEJIA PA cp Kaelyn Martinez, RN RN [facility] Magdalena Madden RN RN Corrections: (The following items were deleted from the chart) 12/21 09:38 09:14 12/21/2018 09:14 Discharged to Home. Impression: Urinary tract infection, site rb1 not specified. Condition is Stable. Forms are Medication Reconciliation Form, Thank You Letter, Antibiotic Education, Prescription Opioid Use. Follow up: Private Physician; When: 2 - 3 days; Reason: Recheck today's complaints. Problem is new. Symptoms have improved. cp
--- NOTE | 2018-12-21 09:15 | ER ---
Nurse's Notes [facility] Name: Sunni Nava Age: 68 yrs Sex: Female : 1950 Arrival Date: 12/21/2018 Time: 07:46 Bed 13 Private MD: John Justice R Diagnosis: Urinary tract infection, site not specified Presentation: 12/21 07:55 Presenting complaint: Right flank pain that radiates to right lower abdomen and burning hb with urination x 2 days. Transition of care: patient was not received from another setting of care. Onset of symptoms was December 20, 2018. Risk Assessment: Do you want to hurt yourself or someone else? Patient reports no desire to harm self or others. Initial Sepsis Screen: Does the patient meet any 2 criteria? No. Patient's initial sepsis screen is negative. Does the patient have a suspected source of infection? No. Patient's initial sepsis screen is negative. Care prior to arrival: None. 07:55 Method Of Arrival: Ambulatory hb 07:55 Acuity: KIN 3 hb Historical: - Allergies: 07:56 No Known Allergies; hb - Home Meds: 07:56 citalopram 40 mg tab 1 tab once daily [Active]; lisinopril 30 mg Oral tab 1 tab once hb daily [Active]; simvastatin 40 mg Oral tab 1 tab once daily [Active]; - PMHx: 07:56 Hypertension; hb - PSHx: 07:56 ; hb - Immunization history:: Adult Immunizations up to date. - Social history:: Smoking status: Patient/guardian denies using tobacco. - Ebola Screening: : No symptoms or risks identified at this time. Screenin:57 Abuse screen: Denies threats or abuse. Denies injuries from another. Nutritional hb screening: No deficits noted. Tuberculosis screening: No symptoms or risk factors identified. Fall Risk None identified. Assessment: 07:55 General: Appears in no apparent distress. comfortable, Behavior is calm, cooperative, rb1 Reports chills for Denies fever. Pain: Complains of pain in right flank Pain currently is 8 out of 10 on a pain scale. Pain began Chang. Neuro: Level of Consciousness is awake, alert, obeys commands, Oriented to person, place, time, situation. Cardiovascular: Capillary refill < 3 seconds is brisk in bilateral fingers. Respiratory: Airway is patent Respiratory effort is even, unlabored, Respiratory pattern is regular, symmetrical. GI: No signs and/or symptoms were reported involving the gastrointestinal system. : Reports burning with urination. Derm: Skin is dry, Skin is normal, Skin temperature is warm. 08:55 Reassessment: Patient appears in no apparent distress at this time. No changes from rb1 previously documented assessment. 09:25 Reassessment: Patient appears in no apparent distress at this time. Patient and/or rb1 family updated on plan of care and expected duration. Pain level reassessed. Patient is alert, oriented x 3, equal unlabored respirations, skin warm/dry/pink. Vital Signs: 07:54 BP 127 / 56; Pulse 86; Resp 16; Temp 98.5; Pulse Ox 100% on R/A; Pain 8/10; hb 08:55 BP 121 / 61; Pulse 78; Resp 16; Pulse Ox 99% on R/A; rb1 ED Course: 07:46 Patient arrived in ED. mr 07:46 John Justice MD is Private Physician. mr 07:51 Wagner Thomas PA is PHCP. cp 07:51 Wagner Rivas MD is Attending Physician. cp 07:55 Patient has correct armband on for positive identification. Bed in low position. Call rb1 light in reach. Side rails up X 1. Pulse ox on. NIBP on. 07:56 Triage completed. hb 07:56 Arm band placed on. hb 07:57 Patient has correct armband on for positive identification. hb 07:58 Kaelyn Martinez, RN is Primary Nurse. rb1 09:37 No provider procedures requiring assistance completed. Patient did not have IV access rb1 during this emergency room visit. Administered Medications: No medications were administered Outcome: 09:14 Discharge ordered by . cp 09:37 Discharged to home ambulatory. rb1 09:37 Condition: stable 09:37 Discharge instructions given to patient, Instructed on discharge instructions, follow up and referral plans. medication usage, Demonstrated understanding of instructions, follow-up care, medications, Prescriptions given X 2. 09:38 Patient left the ED. rb1 Signatures: Misti Pradhan mr Wagner Thomas PA PA cp Kaelyn Martinez, RN RN [facility] Magdalena Madden RN RN
[2018-12-21 09:43] VITALS: TEMP 98.5
[2018-12-21 09:44] VITALS: BP 121/61; O2SAT 99
== END 2018-12-21 09:38 | disposition home or self-care (01) ==
LOC: ER 07:43
DX: N39.0 Urinary tract infection, site not specified (principal); I10 Essential (primary) hypertension
CPT/HCPCS: 81015; 87086; 87088; 99283

== ENCOUNTER 2020-05-19 13:23 | Emergency (ER) | payer OTHER ==
--- OUTSIDE RECORDS SUMMARY | 2020-05-19 13:24 | XMS REPORT | Summary of Care ---
:1950 Author Organization [facility] - Health Address [address] [place] [id number] Care Team Providers Name Role Phone Bart Horner MD Primary Care Provider Encounter Details Date Type Department Care Team Description 03/16/2020 Orders Only [facility] Doctor Unassigned, No [address] [facility] [place] [address] [address] [place] [address] Allergies Not on Filedocumented as of this encounter (statuses as of 03/16/2020) Medications Not on filedocumented as of this encounter (statuses as of 03/16/2020) Active Problems Not on filedocumented as of this encounter (statuses as of 03/16/2020) Social History Tobacco Use Types Packs/Day Years Used Date Never Assessed Sex Assigned at Date Recorded Not on file Job Start Date Occupation Industry Not on file Not on file Not on file Travel History Travel Start Travel End No recent travel history available. documented as of this encounter Last Filed Vital Signs Not on filedocumented in this encounter Plan of Treatment Date Type Specialty Care Team Description 03/16/2020 Office Visit Orthopedic Surgery Khanh Giraldo, PAC [address] [place], [place] [phone] Health Maintenance Due Date Last Done Comments HEPATITIS C (HCV) SCREEN 1950 DTaP,Tdap,and Td Vaccines (1 - Tdap) 1962 Depression Screening 1963 COLONOSCOPY 2001 Zoster Recombinant Vaccine (SHINGRIX) (1 of 2) 2001 Breast Cancer Screening (MAMMOGRAM) 02/01/2011 02/01/2010 Medicare Wellness Visit 2016 Osteoporosis Screening 2016 PNEUMOCOCCAL VACCINES 65+ (1 of 2 - PCV13) 2016 INFLUENZA VACCINE (#1) 2020 documented as of this encounter Procedures Procedure Name Priority Date/Time Associated Diagnosis Comme nts ASSIGNMENT OF BENEFITS Routine 03/16/2020 2:19 PM CDT documented in this encounter Results Not on filedocumented in this encounter Insurance Payer Benefit Plan / Subscriber ID Effective Phone Address T ype Group Dates WE[employer] WELL[employer]ARE [id number] 2018-Pres Medic are Adv MEDICARE NON MEDICARE NON ent PPO CONTRACTED CONTRACTED [facility] [id number] 2020-Prese Medic are Adv HEALTHCARE - HEALTHCARE DUAL nt [place] MANAGED COMPLETE O MEDICARE documented as of this encounter
--- OUTSIDE RECORDS SUMMARY | 2020-05-19 13:25 | XMS REPORT | Summary of Care ---
:1950 Author Organization [facility] Address [address] [place] [address] Care Team Providers Name Role Phone Bart Horner MD Primary Care Provider Reason for Visit Reason Comments New Patient Hand Pain Right Encounter Details Date Type Department Care Team Description 03/16/2020 Office Visit [facility] Orthopaedic GiraldoKhanh S, N europathy of right Surgery- [facility] hand (Primary Dx) [address], [address] [place] [address] [place] [address] [place], [place] [phone] Allergies No Known Allergiesdocumented as of this encounter (statuses as of 03/16/2020) Medications Medication Sig Dispensed Refills Start Date End Date Status atorvastatin 40 mg Take 40 mg by 0 01/17/2020 Active tablet mouth daily. citalopram 40 mg 0 03/08/2020 Ac tive tablet levothyroxine 50 mcg Take 50 mcg by 0 12/31/2019 Active tablet mouth. losartan 50 mg tablet Take 50 mg by 0 02/05/2020 Active mouth daily. gabapentin (NEURONTIN) Take 1 capsule 90 capsule 0 03/16/2020 04/15/2020 Active 300 mg by mouth 3 capsuleIndications: (three) times Neuropathy of right daily for 30 hand days. documented as of this encounter (statuses as of 03/16/2020) Active Problems Not on filedocumented as of this encounter (statuses as of 03/16/2020) Social History Tobacco Use Types Packs/Day Years Used Date Never Smoker Smokeless Tobacco: Never Used Alcohol Use Drinks/Week oz/Week Comments Never Alcohol Habits Answer Date Recorded How often do you have a drink containing alcohol? Never 03/16/2020 How many drinks containing alcohol do you have on a typical Not asked day when you are drinking? How often do you have six or more drinks on one occasion? No t asked Sex Assigned at Date Recorded Not on file Job Start Date Occupation Industry Not on file Not on file Not on file Travel History Travel Start Travel End No recent travel history available. COVID-19 Exposure Response Date Recorded In the last month, have you been in contact with No / Unsure 03/16/2020 2:24 PM CDT someone who was confirmed or suspected to have Coronavirus / COVID-19? 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 Numbness and tingling in hand. No films. Jocelin Lee 03/16/2020 2:30 PM Sunni Nava is a 69 year old female. Right hand pain on her thumb side of her hand sometimes it radiates up to her shoulder, experiences tingling "all of the fingers ". Worse at nighttime, he has tried a brace and had no relief. The paingets a severe enough to make her wanted to cry, onset one year ago. Her pain is now constant. Shehasn't experienced weakness or dropping things, she is not diabetic. Allergies Sunni has No Known Allergies. Medications Outpatient Medications Prior to Visit Medication Sig Dispense Refill atorvastatin 40 mg tablet Take 40 mg by mouth daily. citalopram 40 mg tablet levothyroxine 50 mcg tablet Take 50 mcg by mouth. losartan 50 mg tablet Take 50 mg by mouth daily. No facility-administered medications prior to visit. Histories No past medical history on file. No past surgical history on file. Social History Socioeconomic History Marital status: Spouse name: Not on file Number of children: Not on file Years of education: Not on file Highest education level: Not on file Occupational History Not on file Social Needs Financial resource strain: Not on file Food insecurity: Worry: Not on file Inability: Not on file Transportation needs: Medical: Not on file Non-medical: Not on file Tobacco Use Smoking status: Never Smoker Smokeless tobacco: Never Used Substance and Sexual Activity Alcohol use: Never Frequency: Never Drug use: Not on file Sexual activity: Not on file Lifestyle Physical activity: Days per week: Not on file Minutes per session: Not on file Stress: Not on file Relationships Social connections: Talks on phone: Not on file Gets together: Not on file Attends anabaptism service: Not on file Active member of club or organization: Not on file Attends meetings of clubs or organizations: Not on file Relationship status: Not on file Intimate partner violence: Fear of current or ex partner: Not on file Emotionally abused: Not on file Physically abused: Not on file Forced sexual activity: Not on file Other Topics Concern Not on file Social History Narrative Not on file Family History Problem Relation Age of Onset No Significant Medical Problems Mother No Significant Medical Problems Father Review of Systems Constitutional: Positive for activity change. HENT: Negative. Eyes: Negative. Respiratory: Negative. Cardiovascular: Negative. Gastrointestinal: Negative. Genitourinary: Negative. Musculoskeletal: Negative for gait problem and joint swelling. Skin: Negative. Neurological: Positive for weakness and numbness. Endocrine: Endocrine negative Vital Signs BP 115/63 | Pulse 74 | Ht 63.5" (161.3 cm) | Wt 92.8 kg (204 lb 9.6 oz) | BMI 35.67 kg/m Physical Exam Musculoskeletal: Physical Exam Constitutional: oriented to person, place, and time. appears well-developed and well-nourished. HENT: Head: Normocephalic and atraumatic. Right Ear: External ear normal. Left Ear: External ear normal. Eyes: Conjunctivae are normal. Neck: Normal range of motion. No strabismus Neck supple. Cardiovascular: Normal rate and regular rhythm. Pulmonary/Chest: Normal respiratory rate equal chest rise and fall in no apparent distress Abdominal: Abdomen nondistended nontender Neurological: alert and oriented to person, place, and time. No asymmetry Skin: Skin is warm and dry. Psychiatric: normal mood and affect. behavior is normal. Judgment and thought content normal. Nursing note and vitals reviewed. No tingling at rest with Tinel's test she has hypersensitive tenderness at the site of percussion but not a specific neuropathic distribution. With Phalen's test she could not bend her wrists and enough to get a positive response she was only bending her wrist approximately 40 Assessment/Plan 1. Neuropathy of right hand We will send her for nerve conduction study of the upper extremities and follow up with the results,she has tried conservative management for a year including wrist bracing at rest. 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 documented in this encounter Plan of Treatment Health Maintenance Due Date Last Done Comments HEPATITIS C (HCV) SCREEN 1950 DTaP,Tdap,and Td Vaccines (1 - Tdap) 1962 COLONOSCOPY 2001 Zoster Recombinant Vaccine (SHINGRIX) (1 of 2) 2001 Breast Cancer Screening (MAMMOGRAM) 02/01/2011 02/01/2010 Medicare Wellness Visit 2016 Osteoporosis Screening 2016 PNEUMOCOCCAL VACCINES 65+ (1 of 2 - PCV13) 2016 INFLUENZA VACCINE (#1) 2020 Depression Screening 03/16/2021 03/16/2020 documented as of this encounter Results Not on filedocumented in this encounter Visit Diagnoses Diagnosis Neuropathy of right hand - Primary documented in this encounter Insurance Payer Benefit Plan / Subscriber ID Effective Phone Address T ype Group Dates [facility] [id number] 2020-Prese Medic are Adv HEALTHCARE - HEALTH[place]ARE DUAL nt [place] MANA[place]TE HMO MEDICARE Home) [address] [phone] [place], [place] (Work) [id number] documented as of this encounter
--- OUTSIDE RECORDS SUMMARY | 2020-05-19 13:25 | XMS REPORT | Summary of Care ---
:[address] [facility] Address [address] [place] [address] Care Team Providers Name Role Phone Bart Horner MD Primary Care Provider Reason for Referral (Routine) Status Reason Specialty Diagnoses / Referred By Referred To Procedures Contact Contact New Request Electroneurodiagnostic Diagnoses Neuropathy of right hand Carrie Hernandez Emg/Ncv Procedures EMGNCV Mihai Mccord MD Procedures [address] [facility] [address] [facility], [place], [place] [address] [place] Phone: [phone] Phone: Reason for Visit Reason Comments New Patient Hand Pain Right Encounter Details Date Type Department Care Team Description 03/16/2020 Office Visit [facility] Orthopaedic Khanh Giraldo, William europathy of right Surgery- [facility] hand (Primary Dx) [address] [facility], [facility] [place] [address] [place], [place] [phone] Allergies No Known Allergiesdocumented as of this encounter (statuses as of 05/02/2020) Medications Medication Sig Dispensed Refills Start Date End Date Status atorvastatin 40 mg Take 40 mg by 0 01/17/2020 Active tablet mouth daily. citalopram 40 mg 0 03/08/2020 Ac tive tablet levothyroxine 50 mcg Take 50 mcg by 0 12/31/2019 Active tablet mouth. losartan 50 mg tablet Take 50 mg by 0 02/05/2020 Active mouth daily. gabapentin Take 1 capsule 90 capsule 0 03/16/2020 04/15/2020 E xpired (NEURONTIN) 300 mg by mouth 3 capsuleIndications: (three) times Neuropathy of right daily for 30 hand days. 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 documented in this encounter Miscellaneous Notes Addendum Note - Quyen Byrd - 03/16/2020 2:45 PM CDT Addended by: QUYEN BYRD on: 05/02/2020 12:54 PM Modules accepted: Orders documented in this encounter Plan of Treatment Name Type Priority Associated Diagnoses Order S chedule EMGNCV EMG Routine Neuropathy of right hand 1 O ccurrences starting 05/02/2020 until 05/23/2020 Health Maintenance Due Date Last Done Comments HEPATITIS C (HCV) SCREEN 1950 DTaP,Tdap,and Td Vaccines (1 - Tdap) 1970 COLON CANCER SCREENING ANNUAL FIT/FOBT 2001 COLON CANCER SCREENING FIT DNA EVERY 3 YEARS 2001 COLON CANCER SCREENING SIGMOIDOSCOPY EVERY 5 YEARS 2001 COLONOSCOPY 2001 Colorectal Cancer Screening 2001 Zoster Recombinant Vaccine (SHINGRIX) (1 of 2) 2001 Breast Cancer Screening (MAMMOGRAM) 02/01/2011 02/01/2010 Medicare Wellness Visit 2016 Osteoporosis Screening 2016 PNEUMOCOCCAL VACCINES 65+ (1 of 1 - PPSV23) 2016 INFLUENZA VACCINE (#1) 2020 Depression Screening 03/16/2021 03/16/2020 documented as of this encounter Results Not on filedocumented in this encounter Visit Diagnoses Diagnosis Neuropathy of right hand - Primary documented in this encounter Insurance Payer Benefit Plan / Subscriber ID Effective Phone Address T ype Group Dates [facility] [id number] 2020-Prese Medic are Adv HEALTHCARE - [place] MEDICARE documented as of this encounter
--- OUTSIDE RECORDS SUMMARY | 2020-05-19 13:25 | XMS REPORT | Continuity of Care Document ---
:1950 Author Organization [facility] t Address [address] [place] [address] Care Team Providers Name Role Phone Kim Garcia Attending Clinician Problems This patient has no known problems. Allergies, Adverse Reactions, Alerts This patient has no known allergies or adverse reactions. Medications This patient has no known medications. Procedures This patient has no known procedures. Encounters Start End Encounter Admission Attending Care Care Encounter Source Date/Time Date/Time Type Type Clinicians Facility Department ID 2020-03-16 2020-05-02 Office RADHA Giraldo [id number] 14:21:17 12:54:12 Visit [facility] [id number] Surgical [id number] Special [id number] [address] Results This patient has no known results.
--- OUTSIDE RECORDS SUMMARY | 2020-05-19 13:25 | XMS REPORT | Summary of Care ---
:1950 Author Organization [facility] Address [address] [place] [address] Care Team Providers Name Role Phone Bart Horner MD Primary Care Provider Reason for Visit Reason Comments New Patient Hand Pain Right Encounter Details Date Type Department Care Team Description 03/16/2020 Office Visit [facility] Orthopaedic GiraldoKhanh S, N europathy of right Surgery- [facility] hand (Primary Dx) [address], [address] [place] [address] [place] [address] [place], [place] [phone] Allergies No Known Allergiesdocumented as of this [...] 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 [id number] 2020-Prese Medic are Adv HEALTHCARE - [place]NA[place]TE [place] MEDICARE Home) ST [phone] [place], [place] (Work) [phone] documented as of this encounter
[2020-05-19 14:27] LABS: Urine Blood NEGATIVE (NEG); Urine Glucose NEGATIVE (NEG); Urine Protein NEGATIVE (NEG)
[2020-05-19 14:28] LABS: Absolute Lymphocytes (CBC) 1.7 K/uL (0.7-4.9); Hematocrit 35.4 % (36.0-45.0); Lymphocytes % 15.8 % (15.3-44.8); RBC Red Blood Cell Count 3.88 M/uL (3.86-4.86)
[2020-05-19 14:45] LABS: Albumin 3.8 g/dL (3.4-5.0); Bilirubin Direct 0.1 mg/dL (0-0.2); Bilirubin Total 0.5 mg/dL (0.2-1.0); Potassium 3.6 mmol/L (3.5-5.1)
[2020-05-19] MEDS ORDERED: MORPHINE 4 MG/ML SYR ONE (16:37)
[2020-05-19] MEDS ORDERED: ONDANSETRON 4 MG/2 ML VIAL ONE (16:37)
--- NOTE | 2020-05-19 16:54 | RAD REPORT ---
EXAM DESCRIPTION: CT - Abdomen Pelvis W Contrast - 05/19/2020 4:35 pm CLINICAL HISTORY: ABD PAIN COMPARISON: Abdomen Pelvis W Contrast dated 03/26/2018 TECHNIQUE: Biphasic, helical CT imaging of the abdomen and pelvis was performed following 100 ml non -ionic IV contrast. No oral contrast. All CT scans are performed using dose optimization technique as appropriate and may include automated exposure control or mA/KV adjustment according to patient size. FINDINGS: No suspicious findings in the lung bases. The liver, spleen, and pancreas show no suspicious findings. Gallbladder and biliary tree are also wi thout suspicious finding. Symmetric renal function is seen with no hydronephrosis or suspicious renal mass. No pyelonephritis o r acute parenchymal process. No bladder abnormalities. No suspicious adrenal finding. Nodularity of t he adrenal glands matches the 2018 study. No dilated bowel loops or bowel wall thickening. No appendicitis. A small appendiceal stump is presen t. Patient has mild to moderate sigmoid diverticulosis without diverticulitis. No free air, free flui d or inflammatory stranding. No hernia, mass or bulky lymphadenopathy. Disc and bone degenerative changes are present. Central spinal stenosis present at L4-5 from bulging disc material, ligamentous thickening and facet hypertrophy. Borderline to mild spinal stenosis prese nt at L3-4 from disc bulge and facet hypertrophy. No pathologic or acute bone process. IMPRESSION: Contrast enhanced CT abdomen and pelvis showing no acute or emergent finding. Prominent central spinal stenosis present at L4-5 with less pronounced L3-4 spinal stenosis.
--- NOTE | 2020-05-19 18:40 | RAD REPORT ---
EXAM DESCRIPTION: US - Abdomen Exam Limited - 05/19/2020 5:41 pm CLINICAL HISTORY: ABD PAIN COMPARISON: Abdomen Pelvis W Contrast dated 05/19/2020 FINDINGS: No gallstones, sludge or other abnormalities within the gallbladder lumen. There is no wal l thickening or pericholecystic fluid. No common duct stone or biliary tree dilatation identified. IMPRESSION: Normal gallbladder and biliary tree ultrasound.
--- NOTE | 2020-05-19 18:52 | ER ---
Nurse's Notes [facility] Name: Sunni Nava Age: 69 yrs Sex: Female : 1950 Arrival Date: 05/19/2020 Time: 13:27 Bed 2 Private MD: Diagnosis: Unspecified abdominal pain;Low back pain Presentation: 05/19 13:32 Chief complaint: Patient states: right leg pain, nauseous, and right upper quad. pain em that radiates to back that started this morning, denies vomiting or fever, also reports burning with urination. Coronavirus screen: Client denies travel out of the [place] in the last 14 days. Ebola Screen: Patient negative for fever greater than or equal to 101.5 degrees Fahrenheit, and additional compatible Ebola Virus Disease symptoms Patient denies exposure to infectious person. Patient denies travel to an Ebola-affected area in the 21 days before illness onset. No symptoms or risks identified at this time. Initial Sepsis Screen: Does the patient meet any 2 criteria? No. Patient's initial sepsis screen is negative. Does the patient have a suspected source of infection? No. Patient's initial sepsis screen is negative. Risk Assessment: Do you want to hurt yourself or someone else? Patient reports no desire to harm self or others. Onset of symptoms was May 19, 2020. 13:32 Method Of Arrival: Ambulatory em 13:32 Acuity: KIN 3 em Historical: - Allergies: 13:35 No Known Allergies; em - Home Meds: 13:35 citalopram 40 mg tab 1 tab once daily [Active]; lisinopril 30 mg Oral tab 1 tab once em daily [Active]; simvastatin 40 mg Oral tab 1 tab once daily [Active]; - PMHx: 13:35 Hypertension; em - PSHx: 13:35 ; em 13:36 Hysterectomy; em - Immunization history:: Adult Immunizations up to date. - Social history:: Smoking status: . Screenin:45 Abuse screen: Denies threats or abuse. Denies injuries from another. Nutritional ca1 screening: No deficits noted. Tuberculosis screening: No symptoms or risk factors identified. Fall Risk IV access (20 points). Assessment: 13:45 General: Appears in no apparent distress. comfortable, Behavior is calm, cooperative, ca1 appropriate for age. Pain: Complains of pain in left upper quadrant Pain radiates to left mid back Pain currently is 5 out of 10 on a pain scale. Pain began this morning Is intermittent. Neuro: Level of Consciousness is awake, alert, obeys commands, Oriented to person, place, time, situation. Cardiovascular: Heart tones S1 S2 present Capillary refill < 3 seconds Patient's skin is warm and dry. Respiratory: Airway is patent Respiratory effort is even, unlabored, Respiratory pattern is regular, symmetrical, Breath sounds are clear bilaterally. GI: Abdomen is round non-distended, Bowel sounds present X 4 quads. Abd is soft X 4 quads Abdomen is tender to palpation in left upper quadrant Reports diarrhea, nausea, vomiting, since this morning. : No signs and/or symptoms were reported regarding the genitourinary system. : No signs and/or symptoms were reported regarding the genitourinary system. EENT: No signs and/or symptoms were reported regarding the EENT system. Derm: Skin is intact, is healthy with good turgor, Skin is pink, warm \T\ dry. Musculoskeletal: Circulation, motion, and sensation intact. Capillary refill < 3 seconds. 14:40 Reassessment: Patient appears in no apparent distress at this time. Patient and/or ca1 family updated on plan of care and expected duration. Pain level reassessed. Patient is alert, oriented x 3, equal unlabored respirations, skin warm/dry/pink. 15:36 Reassessment: Patient appears in no apparent distress at this time. Patient and/or ca1 family updated on plan of care and expected duration. Pain level reassessed. Patient is alert, oriented x 3, equal unlabored respirations, skin warm/dry/pink. 16:20 Reassessment: Patient appears in no apparent distress at this time. Patient and/or ca1 family updated on plan of care and expected duration. Pain level reassessed. Patient is alert, oriented x 3, equal unlabored respirations, skin warm/dry/pink. 16:23 Reassessment: Pt at CT. ca1 17:30 Reassessment: Patient appears in no apparent distress at this time. Patient and/or ca1 family updated on plan of care and expected duration. Pain level reassessed. Patient is alert, oriented x 3, equal unlabored respirations, skin warm/dry/pink. 18:30 Reassessment: Patient appears in no apparent distress at this time. Patient and/or ca1 family updated on plan of care and expected duration. Pain level reassessed. Patient is alert, oriented x 3, equal unlabored respirations, skin warm/dry/pink. Vital Signs: 13:32 BP 156 / 77; Pulse 77; Resp 18; Temp 98.5(O); Pulse Ox 98% on R/A; Weight 99.79 kg; em Height 5 ft. 7 in. (170.18 cm); Pain 10/10; 14:45 BP 157 / 67; Pulse 80; Resp 17 S; Pulse Ox 95% on R/A; ca1 15:36 BP 133 / 66; Pulse 76; Resp 16 S; Pulse Ox 95% on R/A; ca1 16:39 BP 149 / 67; Pulse 84; Resp 16 S; Pulse Ox 96% on R/A; ca1 17:19 BP 161 / 74; Pulse 68; Resp 16; Pulse Ox 95% ; sv 17:54 BP 129 / 53; Pulse 59; Resp 18; Pulse Ox 96% ; sv 18:15 BP 116 / 55; Pulse 58; Resp 18; Pulse Ox 96% ; sv 19:09 BP 121 / 61; Pulse 64; Resp 15 S; Pulse Ox 95% on R/A; ca1 13:32 Body Mass Index 34.46 (99.79 kg, 170.18 cm) em ED Course: 13:27 Patient arrived in ED. mr 13:35 Triage completed. em 13:36 Arm band placed on. em 13:40 Monica Roth, RN is Primary Nurse. ca1 13:45 Patient has correct armband on for positive identification. Placed in gown. Bed in low ca1 position. Call light in reach. Side rails up X2. Pulse ox on. NIBP on. Warm blanket given. 14:00 Urine Dipstick--Ancillary (enter results) Sent. sv 14:03 Radha Fatima FNP-C is PHCP. kb 14:03 Landen Carlson MD is Attending Physician. kb 14:19 Basic Metabolic Panel Sent. sv 16:18 PHCP role handed off by Radha Fatima FNP-C snw 16:18 Albina Clark FNP-C is PHCP. snw 16:35 CT Abd/Pelvis - IV Contrast Only In Process Unspecified. EDMS 17:41 US Abdomen Limited In Process Unspecified. EDMS 19:09 No provider procedures requiring assistance completed. IV discontinued, intact, ca1 bleeding controlled, No redness/swelling at site. Pressure dressing applied. Administered Medications: 16:39 Drug: Zofran (Ondansetron) 4 mg Route: IVP; Site: right antecubital; ca1 18:30 Follow up: Response: No adverse reaction; Nausea is decreased ca1 16:42 Drug: morphine 4 mg {Note: rass 0.} Route: IVP; Site: right antecubital; ca1 18:52 Follow up: Response: No adverse reaction; Pain is decreased; RASS: Alert and Calm (0) ca1 18:59 Drug: Tylenol 1000 mg Route: PO; ca1 19:10 Follow up: Response: No adverse reaction; Pain is decreased ca1 Outcome: 18:51 Discharge ordered by . lorie 19:09 Discharged to home ambulatory. ca1 19:09 Condition: stable 19:09 Discharge instructions given to patient, Instructed on discharge instructions, follow up and referral plans. no drinking with medication, no driving heavy equipment, medication usage, Demonstrated understanding of instructions, follow-up care, medications, Prescriptions given X 3. 19:11 Patient left the ED. ca1 Signatures: Dispatcher [employer] Radha Simpson, ERMELINDA-C GOAL UMPIRE-Patricia Amaya RN RN sv Waters, Shelly, GOAL UMPIRE-C GOAL UMPIRE-Misti Lewis Benny Boland RN RN em Acob, Cheryl, RN RN ca1
--- NOTE | 2020-05-19 18:52 | EDPHYS ---
Physician Documentation [facility] Name: Sunni Nava Age: 69 yrs Sex: Female : 1950 Arrival Date: 05/19/2020 Time: 13:27 Bed 2 Private MD: ED Physician Landen Carlson HPI: 05/19 15:16 This 69 yrs old Female presents to ER via Ambulatory with complaints of kb Abdominal Pain, Back Pain, Leg Pain. 15:16 The patient presents with abdominal pain in the right upper quadrant, right lower kb quadrant. Onset: The symptoms/episode began/occurred this morning. The symptoms do not radiate. Associated signs and symptoms: Pertinent positives: nausea, Pertinent negatives: constipation, diarrhea, fever, vomiting. The symptoms are described as constant. Modifying factors: The symptoms are alleviated by nothing, the symptoms are aggravated by nothing. Severity of pain: At its worst the pain was moderate in the emergency department the pain is unchanged. The patient has not experienced similar symptoms in the past. The patient has not recently seen a physician. Historical: - Allergies: 13:35 No Known Allergies; em - Home Meds: 13:35 citalopram 40 mg tab 1 tab once daily [Active]; lisinopril 30 mg Oral tab 1 tab once em daily [Active]; simvastatin 40 mg Oral tab 1 tab once daily [Active]; - PMHx: 13:35 Hypertension; em - PSHx: 13:35 ; em 13:36 Hysterectomy; em - Immunization history:: Adult Immunizations up to date. - Social history:: Smoking status: . ROS: 15:13 Constitutional: Negative for fever, chills, and weight loss, ENT: Negative for injury, kb pain, and discharge, Neck: Negative for injury, pain, and swelling, Cardiovascular: Negative for chest pain, palpitations, and edema, Respiratory: Negative for shortness of breath, cough, wheezing, and pleuritic chest pain, Back: Negative for injury and pain, MS/Extremity: Negative for injury and deformity, Skin: Negative for injury, rash, and discoloration, Neuro: Negative for headache, weakness, numbness, tingling, and seizure. 15:13 Abdomen/GI: Positive for abdominal pain, nausea, Negative for vomiting, diarrhea, constipation. Exam: 15:13 Constitutional: This is a well developed, well nourished patient who is awake, alert, kb and in no acute distress. Head/Face: Normocephalic, atraumatic. Neck: Trachea midline, no thyromegaly or masses palpated, and no cervical lymphadenopathy. Supple, full range of motion without nuchal rigidity, or vertebral point tenderness. No Meningismus. Chest/axilla: Normal chest wall appearance and motion. Nontender with no deformity. No lesions are appreciated. Cardiovascular: Regular rate and rhythm with a normal S1 and S2. No gallops, murmurs, or rubs. Normal PMI, no JVD. No pulse deficits. Respiratory: Lungs have equal breath sounds bilaterally, clear to auscultation and percussion. No rales, rhonchi or wheezes noted. No increased work of breathing, no retractions or nasal flaring. Back: No spinal tenderness. No costovertebral tenderness. Full range of motion. Skin: Warm, dry with normal turgor. Normal color with no rashes, no lesions, and no evidence of cellulitis. MS/ Extremity: Pulses equal, no cyanosis. Neurovascular intact. Full, normal range of motion. Neuro: Awake and alert, GCS 15, oriented to person, place, time, and situation. Cranial nerves II-XII grossly intact. Motor strength 5/5 in all extremities. Sensory grossly intact. Cerebellar exam normal. Normal gait. 15:13 Abdomen/GI: Inspection: abdomen appears normal, Bowel sounds: normal, in all quadrants, Palpation: mild abdominal tenderness, in the right upper quadrant and right lower quadrant. Vital Signs: 13:32 BP 156 / 77; Pulse 77; Resp 18; Temp 98.5(O); Pulse Ox 98% on R/A; Weight 99.79 kg; em Height 5 ft. 7 in. (170.18 cm); Pain 10/10; 14:45 BP 157 / 67; Pulse 80; Resp 17 S; Pulse Ox 95% on R/A; ca1 15:36 BP 133 / 66; Pulse 76; Resp 16 S; Pulse Ox 95% on R/A; ca1 16:39 BP 149 / 67; Pulse 84; Resp 16 S; Pulse Ox 96% on R/A; ca1 17:19 BP 161 / 74; Pulse 68; Resp 16; Pulse Ox 95% ; sv 17:54 BP 129 / 53; Pulse 59; Resp 18; Pulse Ox 96% ; sv 18:15 BP 116 / 55; Pulse 58; Resp 18; Pulse Ox 96% ; sv 19:09 BP 121 / 61; Pulse 64; Resp 15 S; Pulse Ox 95% on R/A; ca1 13:32 Body Mass Index 34.46 (99.79 kg, 170.18 cm) em MDM: 14:04 Patient medically screened. kb 15:16 Data reviewed: vital signs, nurses notes. Data interpreted: Pulse oximetry: on room air kb is 95 %. Interpretation: normal. 19:01 Counseling: I had a detailed discussion with the patient and/or guardian regarding: the snw historical points, exam findings, and any diagnostic results supporting the discharge/admit diagnosis, lab results, radiology results, the need for outpatient follow up, to return to the emergency department if symptoms worsen or persist or if there are any questions or concerns that arise at home. Response to treatment: the patient's symptoms have mildly improved after treatment. 05/19 13:59 Order name: Urine Dipstick--Ancillary (enter results); Complete Time: 14:31 em1 05/19 14:00 Order name: Basic Metabolic Panel sv 05/19 14:00 Order name: CBC with Diff; Complete Time: 14:31 sv 05/19 14:00 Order name: Hepatic Function; Complete Time: 14:46 sv 05/19 14:00 Order name: Lipase; Complete Time: 14:46 sv 05/19 14:01 Order name: Basic Metabolic Panel; Complete Time: 14:46 EDMS 05/19 14:00 Order name: IV Saline Lock; Complete Time: 14:00 sv 05/19 14:00 Order name: Labs collected and sent; Complete Time: 14:00 sv 05/19 15:45 Order name: CT Abd/Pelvis - IV Contrast Only; Complete Time: 17:03 kb 05/19 16:19 Order name: US Abdomen Limited; Complete Time: 18:49 kb Administered Medications: 16:39 Drug: Zofran (Ondansetron) 4 mg Route: IVP; Site: right antecubital; ca1 18:30 Follow up: Response: No adverse reaction; Nausea is decreased ca1 16:42 Drug: morphine 4 mg {Note: rass 0.} Route: IVP; Site: right antecubital; ca1 18:52 Follow up: Response: No adverse reaction; Pain is decreased; RASS: Alert and Calm (0) ca1 18:59 Drug: Tylenol 1000 mg Route: PO; ca1 19:10 Follow up: Response: No adverse reaction; Pain is decreased ca1 Disposition: 05/20 14:04 Co-signature as Attending Physician, Landen Carlson MD I agree with the assessment and kdr plan of care. Disposition: 05/19/20 18:51 Discharged to Home. Impression: Unspecified abdominal pain, Low back pain. - Condition is Stable. - Discharge Instructions: Abdominal Pain, Adult, Back Pain, Adult, Musculoskeletal Pain, Back Injury Prevention, [id number], Rehydration, Adult, Heat Therapy. - Prescriptions for Protonix 40 mg Oral Tablet - take 1 tablet by ORAL route once daily; 30 tablet. Ultram 50 mg Oral Tablet - take 1 tablet by ORAL route every 6 hours As needed; 12 tablet. orphenadrine citrate 100 mg Oral Tablet Sustained Release - take 1 tablet by ORAL route 2 times per day As needed; 20 tablet. - Medication Reconciliation Form, Thank You Letter, Antibiotic Education, Prescription Opioid Use form. - Follow up: Emergency Department; When: As needed; Reason: Worsening of condition. Follow up: Private Physician; When: 2 - 3 days; Reason: Recheck today's complaints, Continuance of care, Re-evaluation by your physician. Signatures: Dispatcher [employer] Radha Simpson, MECHANIC WELDER TRUCK DRIVER-C MECHANIC WELDER TRUCK DRIVER-Patricia Amaya RN RN sv Rittger, Kevin, MD MD kdr Waters, Shelly, MECHANIC WELDER TRUCK DRIVER-C MECHANIC WELDER TRUCK DRIVER-Benny Howard, SHERON HOLBROOK em Mnoica Roth RN RN ca1 Corrections: (The following items were deleted from the chart) 05/19 15:15 15:13 Abdomen/GI: Inspection: abdomen appears normal, Bowel sounds: normal, in all kb quadrants, Palpation: mild abdominal tenderness, in the right upper quadrant, kb 19:11 18:51 05/19/2020 18:51 Discharged to Home. Impression: Unspecified abdominal pain; Low ca1 back pain. Condition is Stable. Forms are Medication Reconciliation Form, Thank You Letter, Antibiotic Education, Prescription Opioid Use. Follow up: Emergency Department; When: As needed; Reason: Worsening of condition. Follow up: Private Physician; When: 2 - 3 days; Reason: Recheck today's complaints, Continuance of care, Re-evaluation by your physician. snw
[2020-05-19] MEDS ORDERED: ACETAMINOPHEN 500 MG TAB ONE (19:08)
[2020-05-19 20:28] VITALS: TEMP 98.5
[2020-05-19 20:37] VITALS: BP 121/61; O2SAT 95
== END 2020-05-19 19:11 | disposition home or self-care (01) ==
LOC: ER 13:23
DX: M54.5 Low back pain (principal); I10 Essential (primary) hypertension
CPT/HCPCS: 85025; 80048; 36415; 80076; 81003; 83690; 74177; 76705; 96375; 96374; 99284; Q9967; J2405

== ENCOUNTER 2020-05-29 10:50 | Emergency (ER) | payer OTHER ==
--- OUTSIDE RECORDS SUMMARY | 2020-05-29 10:53 | XMS REPORT | Continuity of Care Document ---
:1950 Author Organization [facility] t Address [address] [place] [address] Care Team Providers Name Role Phone Kim [...] ID 2020-03-16 2020-05-02 Office RADHA Giraldo [id number] 14:21:17 12:54:12 Visit [facility] [id number] Surgical [id number] Specialti [phone] [address] Results This patient has no known results.
[2020-05-29] MEDS ORDERED: ONDANSETRON 4 MG/2 ML VIAL ONE (11:33)
[2020-05-29] MEDS ORDERED: MORPHINE 2 MG/ML SYR ONE (11:33)
[2020-05-29] MEDS ORDERED: NA CHLORIDE 0.9% 500 ML ONE (11:34)
[2020-05-29 11:41] LABS: Absolute Lymphocytes (CBC) 1.5 K/uL (0.7-4.9); Basophils % 0.9 % (0-1.3); Hematocrit 34.6 % (36.0-45.0); Lymphocytes % 16.3 % (15.3-44.8); MPV 6.6 fL (7.6-11.3); RBC Red Blood Cell Count 3.78 M/uL (3.86-4.86)
[2020-05-29 12:01] LABS: Albumin 3.5 g/dL (3.4-5.0); Bilirubin Direct 0.1 mg/dL (0-0.2); Bilirubin Total 0.4 mg/dL (0.2-1.0); Potassium 3.9 mmol/L (3.5-5.1); Protein, Total 8.3 g/dL (6.4-8.2)
[2020-05-29 12:18] LABS: Urine Blood NEGATIVE (NEG); Urine Glucose NEGATIVE (NEG); Urine Protein NEGATIVE (NEG)
[2020-05-29 12:27] LABS: Urine Bacteria <20 /HPF (<20); Urine Culture Reflex Order REFLEXED; Urine RBC NONE SEEN /HPF (NONE SEEN)
--- NOTE | 2020-05-29 12:28 | RAD REPORT ---
EXAM DESCRIPTION: CT - Abdomen Pelvis W Contrast - 05/29/2020 11:57 am CLINICAL HISTORY: ABD PAIN COMPARISON: Abdomen Pelvis W Contrast dated 05/19/2020 TECHNIQUE: Biphasic, helical CT imaging of the abdomen and pelvis was performed following 100 ml non -ionic IV contrast. Oral contrast was given. All CT scans are performed using dose optimization technique as appropriate and may include automated exposure control or mA/KV adjustment according to patient size. FINDINGS: No suspicious findings in the lung bases. The liver, spleen, and pancreas show no suspicious findings. Gallbladder and biliary tree are also wi thout suspicious finding. Liver attenuation is borderline to mildly fatty infiltrated. Symmetric renal function is seen with no hydronephrosis or suspicious renal mass. No pyelonephritis o r acute parenchymal process. No bladder abnormalities. No adrenal abnormalities. No dilated bowel loops or bowel wall thickening. No finding to suspect bowel ischemia. Mild diverticu losis is present without diverticulitis. No free air, free fluid or inflammatory stranding. No herni a, mass or bulky lymphadenopathy. Uterus is absent. Ovaries are absent or atrophic. No acute or destructive bone finding. L4-5 disc space narrowing and circumferential bulge of disc mat erial combine with facet and ligamentous thickening to cause central spinal stenosis. This is similar to the very recent study. IMPRESSION: Contrast enhanced CT abdomen and pelvis showing no acute or emergent finding. No significant change from the May 19 study.
[2020-05-29] MEDS ORDERED: CEFTRIAXONE/SWI 1gm 1 GM/10 ML SYR ONE (13:10)
--- NOTE | 2020-05-29 13:18 | EDPHYS ---
Physician Documentation [facility] Name: Sunni Nava Age: 69 yrs Sex: Female : 1950 Arrival Date: 05/29/2020 Time: 10:53 Bed 8 Private MD: ED Physician Landen Carlson HPI: 05/29 11:24 This 69 yrs old Female presents to ER via Unassigned with complaints of Fever, pm1 Vomiting. 11:24 The patient presents with abdominal pain suprapubic area. Onset: The symptoms/episode pm1 began/occurred 2 day(s) ago. The symptoms do not radiate. Associated signs and symptoms: Pertinent positives: burning with urination that has resolved, subjective fever last night. patient was seen by her PCP through tele doc on Saturday for abdominal pain and burning with urination. Patient was prescribed Cipro. Patient presents to the ER because she had subjective fever and continued suprapubic pain. . 11:24 The patient's burning with urination has resolved. pm1 Historical: - Allergies: 11:41 No Known Allergies; sv - Home Meds: 11:41 levothyroxine 50 mcg tab 1 tab once daily [Active]; losartan 50 mg oral tab 1 tab once sv daily [Active]; atorvastatin 40 mg oral tab 1 tab once daily [Active]; orphenadrine citrate 100 mg oral TbER 1 tab BID prn [Active]; citalopram 40 mg tab 1 tab once daily [Active]; Protonix 40 mg Oral TbEC 1 tab once daily [Active]; Vitamin D3 oral oral daily [Active]; tramadol 50 mg Oral tab 1 tab Q6H prn [Active]; Cipro 500 mg Oral tab 1 tab every 12 hours [Active]; - PMHx: 11:41 Hypertension; sv - PSHx: 11:41 ; Hysterectomy; sv - Immunization history:: Flu vaccine is up to date. - Social history:: Smoking status: Patient denies any tobacco usage or history of. ROS: 11:46 Cardiovascular: Negative for chest pain, palpitations, and edema, Respiratory: Negative pm1 for shortness of breath, cough, wheezing, and pleuritic chest pain. 11:46 Back: Negative for injury and pain, : Negative for injury, bleeding, discharge, and swelling, MS/Extremity: Negative for injury and deformity, Skin: Negative for injury, rash, and discoloration, Neuro: Negative for headache, weakness, numbness, tingling, and seizure. 11:46 Constitutional: Positive for fever, Negative for body aches, chills. 11:46 Abdomen/GI: Positive for abdominal pain, nausea, of the suprapubic area, Negative for vomiting, diarrhea, constipation. Exam: 11:46 Constitutional: This is a well developed, well nourished patient who is awake, alert, pm1 and in no acute distress. Head/Face: Normocephalic, atraumatic. 11:46 Back: No spinal tenderness. No costovertebral tenderness. Full range of motion. Skin: Warm, dry with normal turgor. Normal color with no rashes, no lesions, and no evidence of cellulitis. MS/ Extremity: Pulses equal, no cyanosis. Neurovascular intact. Full, normal range of motion. 11:46 Cardiovascular: Exam negative for acute changes, Rate: normal, Rhythm: regular, Pulses: no pulse deficits are appreciated. 11:46 Respiratory: Exam negative for acute changes, respiratory distress, shortness of breath. 11:46 Abdomen/GI: Inspection: abdomen appears normal, Palpation: abdomen is soft and non-tender, in all quadrants. 11:46 Neuro: Exam negative for acute changes, Orientation: is normal, Mentation: is normal, Motor: is normal, moves all fours. Vital Signs: 11:10 BP 145 / 67; Pulse 72; Resp 16; Temp 98.5; Pulse Ox 98% ; Weight 104.33 kg; Height 5 sv ft. 7 in. (170.18 cm); 12:26 BP 130 / 43; Pulse 77; Resp 16; Pulse Ox 100% ; sv 12:27 Pain 5/10; sv 13:47 BP 127 / 62; Pulse 78; Resp 16; Pulse Ox 99% ; sv 11:10 Body Mass Index 36.02 (104.33 kg, 170.18 cm) sv MDM: 11:22 Patient medically screened. pm1 13:13 Data reviewed: vital signs. Data interpreted: Pulse oximetry: on room air is 100 %. pm1 Interpretation: normal. Counseling: I had a detailed discussion with the patient and/or guardian regarding: the historical points, exam findings, and any diagnostic results supporting the discharge/admit diagnosis, lab results, radiology results, the need for outpatient follow up, to return to the emergency department if symptoms worsen or persist or if there are any questions or concerns that arise at home, Discussed finding with son, Darrell and patient over speaker phone. Normal blood work and CT. Patient with improvement regarding UTI symptoms. Burning with urination has resolved but patient with some continued suprapubic pain. Micro with WBC, no bacteria. Impression is that Cipro is working for her UTI. Explained to patient and son that we are pending urine culture. Will discharge the patient home with pain medications. 05/29 11:20 Order name: Basic Metabolic Panel [facility] 05/29 11:20 Order name: CBC with Diff [facility] 05/29 11:20 Order name: Hepatic Function [facility] 05/29 11:20 Order name: Lipase [facility] 05/29 11:20 Order name: Urine Microscopic Only [facility] 05/29 11:43 Order name: CBC with Automated Diff; Complete Time: 11:45 EDWV 05/29 11:20 Order name: CT Abd/Pelvis - IV Contrast Only [facility] 05/29 12:01 Order name: Basic Metabolic Panel; Complete Time: 12:12 EDWV 05/29 12:01 Order name: Liver (Hepatic) Function; Complete Time: 12:12 EDWV 05/29 12:01 Order name: Lipase; Complete Time: 12:12 EDWV 05/29 12:15 Order name: Urine Dipstick--Ancillary (enter results) 05/29 12:18 Order name: Urine Dipstick-Ancillary; Complete Time: 12:41 EDWV 05/29 12:27 Order name: Urine Microscopic Only; Complete Time: 12:41 [facility] 05/29 12:29 Order name: CT; Complete Time: 12:41 EDWV 05/29 11:20 Order name: IV Saline Lock; Complete Time: 11:36 pm1 05/29 11:20 Order name: Labs collected and sent; Complete Time: 11:36 pm 05/29 11:20 Order name: Urine Dipstick-Ancillary (obtain specimen); Complete Time: 12:19 pm1 Administered Medications: 11:34 Drug: NS 0.9% 500 ml Route: IV; Rate: bolus; Site: right antecubital; sv 13:00 Follow up: Response: No adverse reaction; IV Status: Completed infusion; IV Intake: sv 500ml 11:35 Drug: morphine 2 mg {Note: rass0 .} Route: IVP; Site: right antecubital; sv 12:27 Follow up: Pain 5/10 Adult; Response: No adverse reaction; Pain is decreased; RASS: sv Alert and Calm (0) 11:35 Drug: Zofran (Ondansetron) 4 mg Route: IVP; Site: right antecubital; sv 12:26 Follow up: Response: No adverse reaction; Nausea is decreased sv 13:06 Drug: Rocephin 1 grams Route: IV; Rate: calculated rate; Site: right antecubital; sv 13:08 Follow up: Response: No adverse reaction; IV Status: Completed infusion; IV Intake: 10mlsv Disposition: 14:54 Co-signature as Attending Physician, Landen Carlson MD I agree with the assessment and kdr plan of care. Disposition: 05/29/20 13:18 Discharged to Home. Impression: Urinary tract infection, site not specified, Other abdominal pain. - Condition is Stable. - Discharge Instructions: Abdominal Pain, Adult, Urinary Tract Infection, Adult. - Prescriptions for Zofran 4 mg Oral Tablet - take 1 tablet by ORAL route every 8 hours As needed; 20 tablet. Tramadol 50 mg Oral Tablet - take 1 tablet by ORAL route every 8 hours as needed; 12 tablet. - Medication Reconciliation Form, Thank You Letter, Antibiotic Education, Prescription Opioid Use form. - Follow up: Emergency Department; When: As needed; Reason: Worsening of condition. Follow up: Private Physician; When: 2 - 3 days; Reason: Recheck today's complaints, Continuance of care, Re-evaluation by your physician. - Problem is new. - Symptoms have improved. Signatures: Dispatcher [employer] Patricia Baird RN RN sv Rittger, Kevin, MD MD kdr Marinas, Patrick, NP TOOL PLANER SET UP OPERATOR pm1 Corrections: (The following items were deleted from the chart) 13:48 13:18 05/29/2020 13:18 Discharged to Home. Impression: Urinary tract infection, site sv not specified; Other abdominal pain. Condition is Stable. Forms are Medication Reconciliation Form, Thank You Letter, Antibiotic Education, Prescription Opioid Use. Follow up: Emergency Department; When: As needed; Reason: Worsening of condition. Follow up: Private Physician; When: 2 - 3 days; Reason: Recheck today's complaints, Continuance of care, Re-evaluation by your physician. Problem is new. Symptoms have improved. pm1
--- NOTE | 2020-05-29 13:18 | ER ---
Nurse's Notes [facility] Name: Sunni Nava Age: 69 yrs Sex: Female : 1950 Arrival Date: 05/29/2020 Time: 10:53 Bed 8 Private MD: Diagnosis: Urinary tract infection, site not specified;Other abdominal pain Presentation: 05/29 11:10 Chief complaint: Patient states: suprapubic pain, "felt hot last night" did not check sv temp. Pt reports being treated for a UTI with Cipro on Saturday. Coronavirus screen: Client denies travel out of the [place] in the last 14 days. At this time, the client does not indicate any symptoms associated with coronavirus-19. Ebola Screen: No symptoms or risks identified at this time. Initial Sepsis Screen: Does the patient meet any 2 criteria? No. Patient's initial sepsis screen is negative. Does the patient have a suspected source of infection? Yes: Dysuria/Frequency/Urgency/UTI. Risk Assessment: Do you want to hurt yourself or someone else? Patient reports no desire to harm self or others. Onset of symptoms was May 28, 2020. 11:10 Method Of Arrival: Ambulatory sv 11:13 Acuity: KIN 3 sv Triage Assessment: 11:41 General: Appears in no apparent distress. uncomfortable, well groomed, well developed, sv Behavior is calm, cooperative, appropriate for age. Pain: Complains of pain in suprapubic area. Neuro: Level of Consciousness is awake, alert, obeys commands, Oriented to person, place, time, situation, Moves all extremities. Full function. Respiratory: Respiratory effort is even, unlabored, Respiratory pattern is regular, symmetrical. Derm: Skin is pink, warm \\T\\ dry. Historical: - Allergies: 11:41 No Known Allergies; sv - Home Meds: 11:41 levothyroxine 50 mcg tab 1 tab once daily [Active]; losartan 50 mg oral tab 1 tab once sv daily [Active]; atorvastatin 40 mg oral tab 1 tab once daily [Active]; orphenadrine citrate 100 mg oral TbER 1 tab BID prn [Active]; citalopram 40 mg tab 1 tab once daily [Active]; Protonix 40 mg Oral TbEC 1 tab once daily [Active]; Vitamin D3 oral oral daily [Active]; tramadol 50 mg Oral tab 1 tab Q6H prn [Active]; Cipro 500 mg Oral tab 1 tab every 12 hours [Active]; - PMHx: 11:41 Hypertension; sv - PSHx: 11:41 ; Hysterectomy; sv - Immunization history:: Flu vaccine is up to date. - Social history:: Smoking status: Patient denies any tobacco usage or history of. Screenin:42 Abuse screen: Denies threats or abuse. Denies injuries from another. Nutritional sv screening: No deficits noted. Tuberculosis screening: No symptoms or risk factors identified. Fall Risk None identified. Assessment: 12:28 Reassessment: Patient appears in no apparent distress at this time. Patient and/or sv family updated on plan of care and expected duration. Pain level reassessed. Patient is alert, oriented x 3, equal unlabored respirations, skin warm/dry/pink. Patient states feeling better. Patient states symptoms have improved. 13:07 Reassessment: Patient appears in no apparent distress at this time. Patient and/or sv family updated on plan of care and expected duration. Pain level reassessed. Patient is alert, oriented x 3, equal unlabored respirations, skin warm/dry/pink. Checo FLORIAN at bedside speaking with pt son regarding lab results. 13:46 Reassessment: Patient appears in no apparent distress at this time. Patient and/or sv family updated on plan of care and expected duration. Pain level reassessed. Patient is alert, oriented x 3, equal unlabored respirations, skin warm/dry/pink. Vital Signs: 11:10 BP 145 / 67; Pulse 72; Resp 16; Temp 98.5; Pulse Ox 98% ; Weight 104.33 kg; Height 5 sv ft. 7 in. (170.18 cm); 12:26 BP 130 / 43; Pulse 77; Resp 16; Pulse Ox 100% ; sv 12:27 Pain 5/10; sv 13:47 BP 127 / 62; Pulse 78; Resp 16; Pulse Ox 99% ; sv 11:10 Body Mass Index 36.02 (104.33 kg, 170.18 cm) sv ED Course: 10:53 Patient arrived in ED. mr 11:06 Checo Iqbal NP is PHCP. pm1 11:06 Landen Carlson MD is Attending Physician. pm1 11:08 Patricia Velasquez, RN is Primary Nurse. sv 11:14 Triage completed. sv 11:36 Basic Metabolic Panel Sent. sv 11:36 CBC with Diff Sent. sv 11:36 Hepatic Function Sent. sv 11:36 Lipase Sent. sv 11:42 Patient has correct armband on for positive identification. Bed in low position. Call sv light in reach. Pulse ox on. NIBP on. Door closed. Head of bed elevated. 11:43 Awaiting lab results, Awaiting CT Scan. sv 11:43 Arm band placed on. sv 12:02 CT Abd/Pelvis - IV Contrast Only Sent. sv 12:19 Urine Dipstick--Ancillary (enter results) Sent. iw 12:19 Urine Microscopic Only Sent. iw 12:27 Awaiting radiology results. sv 13:47 No provider procedures requiring assistance completed. IV discontinued, intact, sv bleeding controlled, No redness/swelling at site. Pressure dressing applied. Administered Medications: 11:34 Drug: NS 0.9% 500 ml Route: IV; Rate: bolus; Site: right antecubital; sv 13:00 Follow up: Response: No adverse reaction; IV Status: Completed infusion; IV Intake: sv 500ml 11:35 Drug: morphine 2 mg {Note: rass0 .} Route: IVP; Site: right antecubital; sv 12:27 Follow up: Pain 5/10 Adult; Response: No adverse reaction; Pain is decreased; RASS: sv Alert and Calm (0) 11:35 Drug: Zofran (Ondansetron) 4 mg Route: IVP; Site: right antecubital; sv 12:26 Follow up: Response: No adverse reaction; Nausea is decreased sv 13:06 Drug: Rocephin 1 grams Route: IV; Rate: calculated rate; Site: right antecubital; sv 13:08 Follow up: Response: No adverse reaction; IV Status: Completed infusion; IV Intake: 10mlsv Intake: 13:00 IV: 500ml; Total: 500ml. sv 13:08 IV: 10ml; Total: 510ml. sv Outcome: 13:18 Discharge ordered by MD. pm1 13:47 Discharged to home ambulatory. sv 13:47 Condition: stable 13:47 Discharge instructions given to patient, Instructed on discharge instructions, follow up and referral plans. medication usage, Demonstrated understanding of instructions, follow-up care, medications, Prescriptions given X 2. 13:48 Patient left the ED. sv Signatures: Patricia Velasquez, SHERON Pradhan Misti Aretha Edmonds RN Checo Casper, [employer] SCI[employer] DEAN [employer] DEAN pm1
[2020-05-29 13:52] VITALS: TEMP 98.5
[2020-05-29 14:00] VITALS: BP 127/62; O2SAT 99
== END 2020-05-29 13:48 | disposition home or self-care (01) ==
LOC: ER 10:50
DX: N39.0 Urinary tract infection, site not specified (principal); R10.9 Unspecified abdominal pain; I10 Essential (primary) hypertension
CPT/HCPCS: 96361; 87088; 85025; 87086; 80048; 36415; 82565; 80076; 83690; 74177; 96375; 96374; 99284; Q9967; J2270; J0696; J7040; J2405; 81003; 81015

== ENCOUNTER 2021-01-26 13:40 | Emergency (ER) | payer OTHER ==
--- OUTSIDE RECORDS SUMMARY | 2021-01-26 13:42 | XMS REPORT | Continuity of Care Document ---
:1950 Author Organization [facility] t Address [address] [place] [address] Care Team Providers Name Role Phone Addi Horner MD Attending Clinician Kim Garcia Attending Clinician Only, Test Attending Clinician Unavailable Doctor Unassigned, Name Attending Clinician Unavailable Yael RN Attending Clinician Unavailable Problems This patient has no known problems. Allergies, Adverse Reactions, Alerts This patient has no known allergies or adverse reactions. Medications This patient has no known medications. Procedures This patient has no known procedures. Encounters Start End Encounter Admission Attending Care Care Encounter Source Date/Time Date/Time Type Type Clinicians Facility Department ID 2020-07-18 2020-07-18 Letter Bart Horner [facility] 1.2.840.114 [id number] 00:00:00 00:00:00 (Out) [facility] [id number] [place] [id number] Professio [phone] nal [address] One 2020-07-16 2020-07-16 Refill Kristal [facility] 1.2.840.114 [id number] 00:00:00 00:00:00 Khanh [facility] [id number] Surgical [id number] Specialti [id number] [address] [place] 2020-07-14 2020-07-14 Laboratory Only, [facility] 1.2.840.114 [id number] 12:09:44 12:24:44 Only Test [place] [id number] [place] [id number] [place] [id number] 353 2020-07-14 2020-07-14 Orders Doctor [place] 1.2.840.114 [id number] 00:00:00 00:00:00 Only Unassigned, BREANNA [id number] [facility] [id number] 009 2020-07-14 2020-07-14 Letter Chiqui Conley 1.2.840.114 [id number] 00:00:00 00:00:00 (Out) BREANNA [id number] [facility] [id number] 019 2020-07-06 2020-07-06 Refill Kristal DEFABIANA 1.2.840.114 [id number] 00:00:00 00:00:00 Khanh [facility] [id number] Surgical [id number] Specialti [id number] [address] [place] 2020-03-16 2020-05-02 Office Kristal [facility] 1.2.840.114 [id number] 14:21:17 12:54:12 Visit [facility] [employer] [id number] Surgical [id number] Specialti [phone] [address] [place] Results This patient has no known results.
[2021-01-26 14:59] LABS: Absolute Lymphocytes (CBC) 2.7 K/uL (0.7-4.9); Basophils % 1.2 % (0-1.3); Hematocrit 32.9 % (36.0-45.0); Lymphocytes % 27.6 % (15.3-44.8); MPV 6.7 fL (7.6-11.3); RBC Red Blood Cell Count 3.63 M/uL (3.86-4.86)
[2021-01-26 15:16] LABS: ALT/SGPT 19 U/L (12-78); AST/SGOT 17 U/L (15-37); Albumin 3.5 g/dL (3.4-5.0); Alkaline Phosphatase 103 U/L (45-117); BUN Blood Urea Nitrogen 18 mg/dL (7-18); Bicarbonate 30 mmol/L (21-32); Bilirubin Direct < 0.1 mg/dL (0-0.2); Bilirubin Total 0.4 mg/dL (0.2-1.0); Glucose Level 126 mg/dL (74-106); Lipase 111 U/L (73-393); Potassium 3.8 mmol/L (3.5-5.1); Protein, Total 8.3 g/dL (6.4-8.2); Sodium Level 140 mmol/L (136-145)
[2021-01-26 15:37] LABS: Urine Blood Negative (Negative); Urine Glucose Negative (Negative); Urine Protein Negative (Negative); Urine Specific Gravity 1.025 (1.005-1.030); Urine pH 5.5 (5.0-7.0)
--- NOTE | 2021-01-26 16:03 | RAD REPORT ---
EXAM DESCRIPTION: CT - Abdomen Pelvis W Contrast - 01/26/2021 3:33 pm CLINICAL HISTORY: ABD PAIN COMPARISON: Abdomen Pelvis W Contrast dated 05/29/2020 TECHNIQUE: Biphasic, helical CT imaging of the abdomen and pelvis was performed following 100 ml non -ionic IV contrast. No oral contrast administered. All CT scans are performed using dose optimization technique as appropriate and may include automated exposure control or mA/KV adjustment according to patient size. FINDINGS: No suspicious findings in the lung bases. The liver, spleen, and pancreas show no suspicious findings. Mild diffuse fatty infiltration of the l iver is again noted. Contracted gallbladder shows no suspicious finding. No biliary tree dilatation. Symmetric renal function is seen with no hydronephrosis or suspicious renal mass. No pyelonephritis o r acute parenchymal process. No bladder abnormalities. Bilateral adrenal nodularity has not changed. Uterus is absent. Ovaries are absent or atrophic. No adnexal abnormalities. No dilated bowel loops or bowel wall thickening. Appendix is not clearly defined. No direct or indire ct evidence for appendicitis. Patient has mild sigmoid diverticulosis without diverticulitis. No free air, free fluid or inflammatory stranding. No hernia, mass or bulky lymphadenopathy. Disc and bone degenerative changes are present. No acute or destructive bone process identifiable. De generative disc disease is seen at multiple levels. There is significant spinal stenosis change evide nt at L3-4 and L4-5. Canal is borderline stenotic at L5-S1. IMPRESSION: Contrast enhanced CT abdomen and pelvis showing no acute or emergent finding. Nonacute findings detailed in the body of the report.
[2021-01-26 16:10] LABS: Urine Bacteria <20 /HPF (<20); Urine Mucus 1+ /HPF (NONE SEEN); Urine RBC <5 /HPF (NONE SEEN)
--- NOTE | 2021-01-26 16:46 | EDPHYS ---
Physician Documentation [facility] Name: Sunni Nava Age: 70 yrs Sex: Female : 1950 Arrival Date: 01/26/2021 Time: 13:44 Bed 13 Private MD: ED Physician Landen Carlson HPI: 01/26 14:18 This 70 yrs old Female presents to ER via Ambulatory with complaints of kdr Abdominal Pain, Back Pain. 14:18 The patient presents with abdominal pain right lower quadrant. Onset: The kdr symptoms/episode began/occurred suddenly, last night. The symptoms radiate to right lower back and right gluteus vanessa. Associated signs and symptoms: Pertinent positives: diarrhea, dysuria, Pertinent negatives: fever, headache. The symptoms are described as achy, dull, intermittent, vague. Modifying factors: The symptoms are alleviated by nothing, the symptoms are aggravated by nothing. Severity of pain: At its worst the pain was mild moderate just prior to arrival, in the emergency department the pain has improved moderately. The patient has experienced similar episodes in the past, chronically, The patient claims a history of ovarian torsion for many years. The patient has not recently seen a physician. Historical: - Allergies: 14:08 No Known Allergies; sv - PMHx: 14:08 Hypertension; sv - PSHx: 14:08 ; Hysterectomy; sv - Immunization history:: Client reports receiving the 1st dose of the Covid vaccine. - Social history:: Smoking status: Patient denies any tobacco usage or history of. ROS: 14:18 Constitutional: Negative for fever, chills, and weight loss, Eyes: Negative for injury, kdr pain, redness, and discharge, ENT: Negative for injury, pain, and discharge, Neck: Negative for injury, pain, and swelling, Cardiovascular: Negative for chest pain, palpitations, and edema, Respiratory: Negative for shortness of breath, cough, wheezing, and pleuritic chest pain, Back: Negative for injury and pain, : Negative for injury, bleeding, discharge, and swelling, MS/Extremity: Negative for injury and deformity, Skin: Negative for injury, rash, and discoloration, Neuro: Negative for headache, weakness, numbness, tingling, and seizure activity. Psych: Negative for depression, anxiety, suicide ideation, homicidal ideation, and hallucinations, Allergy/Immunology: Negative for hives, rash, and allergies, Endocrine: Negative for neck swelling, polydipsia, polyuria, polyphagia, and marked weight changes, Hematologic/Lymphatic: Negative for swollen nodes, abnormal bleeding, and unusual bruising. 14:18 Abdomen/GI: Positive for abdominal pain, Negative for constipation, abdominal cramps, abdominal distension, black/tarry stool, rectal pain, rectal bleeding, bowel incontinence. Exam: 14:18 Constitutional: This is a well developed, well nourished patient who is awake, alert, kdr and in no acute distress. Head/Face: Normocephalic, atraumatic. Eyes: Pupils equal round and reactive to light, extra-ocular motions intact. Lids and lashes normal. Conjunctiva and sclera are non-icteric and not injected. Cornea within normal limits. Periorbital areas with no swelling, redness, or edema. Neck: Trachea midline, no thyromegaly or masses palpated, and no cervical lymphadenopathy. Supple, full range of motion without nuchal rigidity, or vertebral point tenderness. No Meningismus. Chest/axilla: Normal chest wall appearance and motion. Nontender with no deformity. No lesions are appreciated. Cardiovascular: Regular rate and rhythm with a normal S1 and S2. No gallops, murmurs, or rubs. Normal PMI, no JVD. No pulse deficits. Respiratory: Lungs have equal breath sounds bilaterally, clear to auscultation and percussion. No rales, rhonchi or wheezes noted. No increased work of breathing, no retractions or nasal flaring. Back: No spinal tenderness. No costovertebral tenderness. Full range of motion. Skin: Warm, dry with normal turgor. Normal color with no rashes, no lesions, and no evidence of cellulitis. MS/ Extremity: Pulses equal, no cyanosis. Neurovascular intact. Full, normal range of motion. Neuro: Awake and alert, GCS 15, oriented to person, place, time, and situation. Cranial nerves II-XII grossly intact. Motor strength 5/5 in all extremities. Sensory grossly intact. Cerebellar exam normal. Normal gait. Psych: Awake, alert, with orientation to person, place and time. Behavior, mood, and affect are within normal limits. 14:18 Abdomen/GI: Inspection: abdomen appears normal, obese Bowel sounds: active, Palpation: soft, mild abdominal tenderness, mass, is not appreciated, rebound tenderness, is not appreciated. Vital Signs: 14:06 BP 147 / 64; Pulse 74; Resp 16; Pulse Ox 94% ; Weight 93.44 kg; Height 5 ft. 7 in. sv (170.18 cm); Pain 6/10; 14:40 BP 147 / 64; Pulse 71; Resp 16; Pulse Ox 99% on R/A; mb4 15:42 BP 132 / 57; Pulse 76; Resp 16; Pulse Ox 97% on R/A; vg1 16:31 BP 121 / 51; Pulse Ox 97% on R/A; mb4 14:06 Body Mass Index 32.26 (93.44 kg, 170.18 cm) sv MDM: 14:18 Data reviewed: vital signs, nurses notes, lab test result(s), radiologic studies. kdr Counseling: I had a detailed discussion with the patient and/or guardian regarding: the historical points, exam findings, and any diagnostic results supporting the discharge/admit diagnosis, lab results, radiology results. 16:45 Patient medically screened. [facility] 01/26 14:17 Order name: Basic Metabolic Panel [facility] 01/26 14:17 Order name: CBC with Diff; Complete Time: 16:00 [facility] 01/26 14:17 Order name: Hepatic Function; Complete Time: 16:00 [facility] 01/26 14:17 Order name: Lipase; Complete Time: 16:00 [facility] 01/26 14:17 Order name: Basic Metabolic Panel; Complete Time: 16:00 [facility] 01/26 15:37 Order name: Urine Dipstick-Ancillary; Complete Time: 16:00 [facility] 01/26 14:17 Order name: IV Saline Lock; Complete Time: 15:09 [facility] 01/26 14:17 Order name: Labs collected and sent; Complete Time: 15:09 [facility] 01/26 14:17 Order name: CT Abd/Pelvis - IV Contrast Only; Complete Time: 16:43 [facility] 01/26 15:37 Order name: Urine Microscopic Only; Complete Time: 16:43 [facility] 01/26 16:11 Order name: Urine Culture EDAK Administered Medications: No medications were administered Disposition: 01/26/21 16:45 Discharged to Home. Impression: Nausea and vomiting, Diarrhea, unspecified, Abdominal and pelvic pain. - Condition is Stable. - Discharge Instructions: Nausea and Vomiting, Adult, Zjmi-cy-Nfxv, Abdominal Pain, Adult, Zkvo-zi-Uhiu, Acute Urinary Retention, Female, Epjv-iy-Orcy, Diarrhea, Adult, Jaon-rb-Xpdr. - Prescriptions for Zofran 4 mg Oral Tablet - take 1 tablet by ORAL route every 4-6 hours As needed; 12 tablet. Pepcid 20 mg Oral Tablet - take 1 tablet by ORAL route once daily; 20 tablet. Pyridium 200 mg Oral Tablet - take 1 tablet by ORAL route every 8 hours for 3 days; 9 tablet. Bactrim DS 800- 160 mg Oral Tablet - take 1 tablet by ORAL route every 12 hours for 7 days; 14 tablet. - Medication Reconciliation Form, Thank You Letter form. - Follow up: Private Physician; When: 2 - 3 days; Reason: If symptoms return, Further diagnostic work-up, Recheck today's complaints, Continuance of care, Re-evaluation by your physician. - Problem is new. - Symptoms have improved. Signatures: Dispatcher [employer] Patricia Baird RN RN Landen Carlson MD MD kdr Nyasia Nava RN RN vg1 Corrections: (The following items were deleted from the chart) 16:59 16:45 01/26/2021 16:45 Discharged to Home. Impression: Nausea and vomiting; Diarrhea, vg1 unspecified; Abdominal and pelvic pain. Condition is Stable. Forms are Medication Reconciliation Form, Thank You Letter, Antibiotic Education, Prescription Opioid Use. Follow up: Private Physician; When: 2 - 3 days; Reason: If symptoms return, Further diagnostic work-up, Recheck today's complaints, Continuance of care, Re-evaluation by your physician. Problem is new. Symptoms have improved. kdr
--- NOTE | 2021-01-26 16:46 | ER ---
Nurse's Notes [facility] Name: Sunni Nava Age: 70 yrs Sex: Female : 1950 Arrival Date: 01/26/2021 Time: 13:44 Bed 13 Private MD: Diagnosis: Nausea and vomiting;Diarrhea, unspecified;Abdominal and pelvic pain Presentation: 01/26 14:06 Chief complaint: Patient states: ate pizza last night and then started having abd sv cramping, went to bed. Woke up this morning with abd cramping still, R back pain that radiates to the RLE and bilateral shoulder pain. Coronavirus screen: Client denies travel out of the [place] in the last 14 days. At this time, the client does not indicate any symptoms associated with coronavirus-19. Ebola Screen: No symptoms or risks identified at this time. Risk Assessment: Do you want to hurt yourself or someone else? Patient reports no desire to harm self or others. Onset of symptoms was January 25, 2021. 14:06 Method Of Arrival: Ambulatory sv 14:06 Acuity: KIN 3 sv 15:43 Initial Sepsis Screen: Does the patient meet any 2 criteria? No. Patient's initial vg1 sepsis screen is negative. Does the patient have a suspected source of infection? No. Patient's initial sepsis screen is negative. Historical: - Allergies: 14:08 No Known Allergies; sv - PMHx: 14:08 Hypertension; sv - PSHx: 14:08 ; Hysterectomy; sv - Immunization history:: Client reports receiving the 1st dose of the Covid vaccine. - Social history:: Smoking status: Patient denies any tobacco usage or history of. Screenin:06 Abuse screen: Denies threats or abuse. Denies injuries from another. Nutritional sv screening: No deficits noted. Tuberculosis screening: No symptoms or risk factors identified. Fall Risk None identified. Assessment: 15:41 General: Appears in no apparent distress. comfortable, Behavior is calm, cooperative. vg1 Pain: Complains of pain in pelvis and right lower back Pain currently is 10 out of 10 on a pain scale. Neuro: Level of Consciousness is awake, alert, obeys commands, Oriented to person, place, time, situation. Cardiovascular: Patient's skin is warm and dry. Respiratory: Airway is patent Respiratory effort is even, unlabored. GI: Bowel sounds present X 4 quads. Abd is soft and non tender. : Reports burning with urination, urinary frequency, vaginal itching. EENT: No signs and/or symptoms were reported regarding the EENT system. Derm: Skin is intact, is healthy with good turgor. Musculoskeletal: Circulation, motion, and sensation intact. Vital Signs: 14:06 BP 147 / 64; Pulse 74; Resp 16; Pulse Ox 94% ; Weight 93.44 kg; Height 5 ft. 7 in. sv (170.18 cm); Pain 6/10; 14:40 BP 147 / 64; Pulse 71; Resp 16; Pulse Ox 99% on R/A; mb4 15:42 BP 132 / 57; Pulse 76; Resp 16; Pulse Ox 97% on R/A; vg1 16:31 BP 121 / 51; Pulse Ox 97% on R/A; mb4 14:06 Body Mass Index 32.26 (93.44 kg, 170.18 cm) sv ED Course: 13:44 Patient arrived in ED. mr 13:52 Landen Carlson MD is Attending Physician. kdr 14:06 Patient has correct armband on for positive identification. Bed in low position. Call sv light in reach. Pulse ox on. NIBP on. Door closed. Head of bed elevated. 14:07 Triage completed. sv 14:08 Arm band placed on. sv 14:40 Inserted saline lock: 20 gauge in right antecubital area, using aseptic technique. ld1 Blood collected. 14:43 Initial lab(s) drawn, by ED staff, sent to lab. mb4 14:43 Basic Metabolic Panel Sent. sv 15:41 Nyasia Nava, RN is Primary Nurse. vg1 15:43 No provider procedures requiring assistance completed. vg1 15:43 Urine Microscopic Only Sent. sv 15:47 CT Abd/Pelvis - IV Contrast Only In Process Unspecified. EDMS 16:59 IV discontinued, intact, bleeding controlled, No redness/swelling at site. Pressure vg1 dressing applied. Administered Medications: No medications were administered Outcome: 16:45 Discharge ordered by . kdr 16:58 Discharged to home ambulatory. vg1 16:58 Condition: stable 16:58 Discharge instructions given to patient, Instructed on discharge instructions, follow up and referral plans. medication usage, Demonstrated understanding of instructions, follow-up care, medications, Prescriptions given X 4. 16:59 Patient left the ED. vg1 Signatures: Dispatcher [employer] EDPatricia Rust, RN Landen Chang MD MD kdr Rivera, Mary mr Baxter, Mackenzie mb4 Nyasia Nava RN RN vg1 Erin Davidson RN RN ld1
[2021-01-26 17:06] VITALS: O2SAT 97
[2021-01-26 17:07] VITALS: BP 121/51
== END 2021-01-26 16:59 | disposition home or self-care (01) ==
LOC: ER 13:40
DX: R19.7 Diarrhea, unspecified (principal); R11.2 Nausea with vomiting, unspecified; I10 Essential (primary) hypertension
CPT/HCPCS: 87088; 85025; 87086; 80048; 36415; 80076; 83690; 74177; 99284; Q9967; 81003; 81015

== ENCOUNTER 2021-04-13 13:46 | Emergency (ER) | payer OTHER ==
--- OUTSIDE RECORDS SUMMARY | 2021-04-13 13:49 | XMS REPORT | Continuity of Care Document ---
:1950 Author Organization [facility] t Address [address] [place] [address] Care Team Providers Name Role Phone Addi [...] Department ID 2020-07-18 2020-07-18 Letter Bart Horner [facility] 1.2.840.114 [id number] 00:00:00 00:00:00 (Out) [facility] [id number] [place] [id number] Professio [phone] nal 0[address] One 2020-07-16 2020-07-16 Refill Krisatl [facility] 1.2.840.114 [id number] 00:00:00 00:00:00 Khanh [facility] [id number] Surgical [id number] Specialti [id number] [address] [place] 2020-07-14 2020-07-14 Laboratory Only, [facility] 1.2.840.114 [id number] 12:09:44 12:24:44 Only Test [place] [id number] [place] 4.2.7.2.686 [place] [id number] 353 2020-07-14 2020-07-14 Orders Doctor [place] 1.2.840.114 [id number] 00:00:00 00:00:00 Only Unassigned, BREANNA 350.1.13.10 [facility] [id number] [id number] [id number] 2020-07-14 2020-07-14 Letter Chiqui Conley 1.2.840.114 [id number] 00:00:00 00:00:00 (Out) BREANNA [id number] [facility] [id number] [id number] [id number] 2020-07-06 2020-07-06 Refill Kristal WAFABIANA 1.2.840.114 [id number] 00:00:00 00:00:00 Khanh [employer] [id number] Surgical [id number] Specialti [phone] [address] [place] 2020-03-16 2020-05-02 Office Kristal [facility] 1.2.840.114 [id number] 14:21:17 12:54:12 Visit [facility] [employer] [id number] Surgical [id number] Specialti [phone] es [address] [place] Results This patient has no known results.
[2021-04-13 16:37] LABS: Urine Blood Negative (Negative); Urine Glucose Negative (Negative); Urine Protein Negative (Negative); Urine Specific Gravity 1.025 (1.005-1.030)
[2021-04-13 17:08] LABS: Urine Bacteria <20 /HPF (<20); Urine RBC NONE SEEN /HPF (NONE SEEN)
--- NOTE | 2021-04-13 17:15 | ER ---
Nurse's Notes [facility] Name: Sunni Nava Age: 70 yrs Sex: Female : 1950 Arrival Date: 04/13/2021 Time: 13:51 Bed 10 Private MD: Diagnosis: Candidiasis of vulva and vagina;UTI/ Urinary tract infection, site not specified Presentation: 04/13 14:20 Chief complaint: Patient states: R low back pain that began yesterday. Pt c/o itching ss to her vaginal area. Coronavirus screen: Client denies travel out of the [place] in the last 14 days. Ebola Screen: Patient denies exposure to infectious person. Patient denies travel to an Ebola-affected area in the 21 days before illness onset. Initial Sepsis Screen: Does the patient meet any 2 criteria? No. Patient's initial sepsis screen is negative. Does the patient have a suspected source of infection? No. Patient's initial sepsis screen is negative. Risk Assessment: Do you want to hurt yourself or someone else? Patient reports no desire to harm self or others. Onset of symptoms was April 12, 2021. 14:20 Method Of Arrival: Ambulatory ss 14:20 Acuity: KIN 3 ss Historical: - Allergies: 14:22 No Known Allergies; ss - PMHx: 14:22 Hypertension; Hypothyroidism; Gastric reflux; ss - Immunization history:: Adult Immunizations up to date, Client reports receiving the 2nd dose of the Covid vaccine. - Social history:: Smoking status: Patient denies any tobacco usage or history of. Screenin:43 Abuse screen: Denies threats or abuse. Denies injuries from another. Nutritional ss screening: No deficits noted. Tuberculosis screening: Never had TB. Fall Risk None identified. Assessment: 16:06 General: Appears in no apparent distress. comfortable, Behavior is calm, cooperative. ss Pain: Complains of pain in right low back Pain currently is 10 out of 10 on a pain scale. Quality of pain is described as aching. Neuro: Level of Consciousness is awake, alert, obeys commands, Oriented to person, place, time, situation. Neuro: Level of Consciousness is awake, alert, obeys commands, Oriented to person, place, time, situation. Cardiovascular: Capillary refill < 3 seconds is brisk in bilateral fingers. Respiratory: Airway is patent Respiratory effort is even, unlabored, Respiratory pattern is regular, symmetrical. GI: Patient currently denies anorexia, diarrhea, nausea, vomiting. : No signs and/or symptoms were reported regarding the genitourinary system. EENT: Nares are clear. Derm: Skin is intact, is healthy with good turgor, Skin is dry. Musculoskeletal: Circulation, motion, and sensation intact. Range of motion: intact in all extremities, Swelling absent. 17:27 Reassessment: Patient appears in no apparent distress at this time. Patient and/or ss family updated on plan of care and expected duration. Pain level reassessed. Patient is alert, oriented x 3, equal unlabored respirations, skin warm/dry/pink. Vital Signs: 14:22 BP 110 / 58; Pulse 66; Resp 16; Temp 98.2(TE); Pulse Ox 100% on R/A; Weight 95.25 kg; ss Height 5 ft. 7 in. (170.18 cm); Pain 10/10; 14:22 Body Mass Index 32.89 (95.25 kg, 170.18 cm) ED Course: 13:51 Patient arrived in ED. mr 14:21 Triage completed. ss 14:22 Arm band placed on right wrist. ss 16:06 Rad[facility] Fatima F[facility]-C [facility]. kb 16:06 Landen Carlson MD is Attending Physician. kb 16:20 Jordyn Hammer, SHERON is Primary Nurse. ss 16:43 Patient has correct armband on for positive identification. Bed in low position. Call ss light in reach. 16:44 No provider procedures requiring assistance completed. Patient did not have IV access ss during this emergency room visit. Administered Medications: 17:26 Drug: DiFLUcan (fluconazole) 150 mg Route: PO; ss 17:26 Follow up: Response: Medication administered at discharge. ss 17:26 Drug: Macrobid (nitrofurantoin) 100 mg Route: PO; ss 17:26 Follow up: Response: Medication administered at discharge. Outcome: 17:14 Discharge ordered by . kb 17:27 Discharged to home ambulatory. ss 17:27 Condition: good 17:27 Discharge instructions given to patient, Instructed on discharge instructions, follow up and referral plans. medication usage, Demonstrated understanding of instructions, follow-up care, Prescriptions given X 1. 17:27 Patient left the ED. ss Signatures: Radha Fatima, ERMELINDA-C FORE[facility] AID-Brandi Pradhan Misti mr Jordyn Hammer, RN RN ss
--- NOTE | 2021-04-13 17:15 | EDPHYS ---
Physician Documentation [facility] Name: Sunni Nava Age: 70 yrs Sex: Female : 1950 Arrival Date: 04/13/2021 Time: 13:51 Bed 10 Private MD: ED Physician Landen Carlson HPI: 04/13 17:21 This 70 yrs old Female presents to ER via Ambulatory with complaints of Back kb Pain. 17:21 The patient presents with urinary symptoms, dysuria, vaginal itching. Onset: The kb symptoms/episode began/occurred yesterday. Modifying factors: The symptoms are alleviated by nothing, the symptoms are aggravated by urinating. Associated signs and symptoms: Pertinent positives: dysuria, low back pain, vaginal itching. Severity of symptoms: At their worst the symptoms were moderate, in the emergency department the symptoms have improved. The patient has experienced similar episodes in the past, a few times. The patient has not recently seen a physician. Pt reports vaginal itching and dysuria. States her right low back was hurting all day yesterday, today it is better. . Historical: - Allergies: 14:22 No Known Allergies; ss - PMHx: 14:22 Hypertension; Hypothyroidism; Gastric reflux; ss - Immunization history:: Adult Immunizations up to date, Client reports receiving the 2nd dose of the Covid vaccine. - Social history:: Smoking status: Patient denies any tobacco usage or history of. ROS: 17:20 Constitutional: Negative for fever, chills, and weight loss. kb 17:20 Back: Positive for pain at rest, pain with movement, of the right low back. 17:20 : Positive for burning with urination, vaginal itching. 17:20 All other systems are negative. Exam: 17:20 Constitutional: This is a well developed, well nourished patient who is awake, alert, kb and in no acute distress. Head/Face: Normocephalic, atraumatic. ENT: Moist Mucous membranes Cardiovascular: Regular rate and rhythm with a normal S1 and S2. No gallops, murmurs, or rubs. No pulse deficits. Respiratory: Respirations even and unlabored. No increased work of breathing, no retractions or nasal flaring. Abdomen/GI: Soft, non-tender. No distention Skin: Warm, dry with normal turgor. Normal color. MS/ Extremity: Pulses equal, no cyanosis. Neurovascular intact. Full, normal range of motion. Neuro: Awake and alert, GCS 15, oriented to person, place, time, and situation. Moves all extremities. Normal gait. Psych: Awake, alert, with orientation to person, place and time. Behavior, mood, and affect are within normal limits. Vital Signs: 14:22 BP 110 / 58; Pulse 66; Resp 16; Temp 98.2(TE); Pulse Ox 100% on R/A; Weight 95.25 kg; ss Height 5 ft. 7 in. (170.18 cm); Pain 10/10; 14:22 Body Mass Index 32.89 (95.25 kg, 170.18 cm) ss MDM: 16:07 Patient medically screened. kb 17:13 Data reviewed: vital signs, nurses notes. Data interpreted: Pulse oximetry: on room air kb is 100 %. Interpretation: normal. Counseling: I had a detailed discussion with the patient and/or guardian regarding: the historical points, exam findings, and any diagnostic results supporting the discharge/admit diagnosis, the need for outpatient follow up, a family practitioner, to return to the emergency department if symptoms worsen or persist or if there are any questions or concerns that arise at home. 04/13 15:59 Order name: Urine Microscopic Only; Complete Time: 17:12 cp 04/13 16:37 Order name: Urine Dipstick-Ancillary; Complete Time: 16:38 EDMS 04/13 15:59 Order name: Urine Dipstick-Ancillary (obtain specimen); Complete Time: 16:42 cp 04/13 17:09 Order name: Urine Culture EDMS Administered Medications: 17:26 Drug: DiFLUcan (fluconazole) 150 mg Route: PO; ss 17:26 Follow up: Response: Medication administered at discharge. ss 17:26 Drug: Macrobid (nitrofurantoin) 100 mg Route: PO; ss 17:26 Follow up: Response: Medication administered at discharge. Disposition: 18:54 Co-signature as Attending Physician, Landen Carlson MD I agree with the assessment and kdr plan of care. Disposition Summary: 04/13/21 17:14 Discharge Ordered Location: Home kb Condition: Stable kb Diagnosis - Candidiasis of vulva and vagina kb - UTI/ Urinary tract infection, site not specified kb Followup: kb - With: Emergency Department - When: As needed - Reason: Worsening of condition Followup: kb - With: Private Physician - When: 2 - 3 days - Reason: Recheck today's complaints, Continuance of care, Re-evaluation by your physician Discharge Instructions: - Discharge Summary Sheet kb - Urinary Tract Infection, Adult, [id number] kb Forms: - Medication Reconciliation Form kb - Thank You Letter kb - Antibiotic Education kb - Prescription Opioid Use kb Prescriptions: - Macrobid 100 mg Oral Capsule - take 1 capsule by ORAL route every 12 hours for 5 days; 10 capsule; Refills: 0, kb Product Selection Permitted Signatures: Dispatcher [employer] EDMS Radha Fatima, FABIENC ERMELINDA-Landen Cox MD MD kdr Smirch, Shelby, RN RN ss Wagner Thomas, MEJIA PA cp
[2021-04-13 17:32] VITALS: BP 110/58; TEMP 98.2; O2SAT 100
[2021-04-13] MEDS ORDERED: FLUCONAZOLE 100 MG TAB ONE (17:46)
[2021-04-13] MEDS ORDERED: NITROFURAN MACRO 100 MG CAP PO ONE (17:46)
== END 2021-04-13 17:27 | disposition home or self-care (01) ==
LOC: ER 13:46
DX: N39.0 Urinary tract infection, site not specified (principal); B37.3 Candidiasis of vulva and vagina; I10 Essential (primary) hypertension
CPT/HCPCS: 81003; 81015; 87086; 87088; 99283

== ENCOUNTER 2021-06-01 12:52 | Emergency (ER) | payer OTHER ==
[2021-06-01 13:41] LABS: Urine Blood Negative (Negative); Urine Glucose Negative (Negative); Urine Protein Negative (Negative); Urine Specific Gravity >=1.030 (1.005-1.030); Urine pH 5.5 (5.0-7.0)
--- NOTE | 2021-06-01 14:15 | EDPHYS ---
Physician Documentation [facility] Name: Sunni Nava Age: 70 yrs Sex: Female : 1950 Arrival Date: 06/01/2021 Time: 12:56 Bed DIS1 Private MD: ED Physician Ramiro Cotton HPI: 06/01 13:50 This 70 yrs old Female presents to ER via Ambulatory with complaints of Back jmm Pain. 13:50 Onset: The symptoms/episode began/occurred gradually, 1 day(s) ago. The pain radiates jmm to the pelvis. Associated signs and symptoms: Pertinent positives: dysuria, Pertinent negatives: fever, headache, hematuria. Modifying factors: The patient symptoms are alleviated by nothing, the patient symptoms are aggravated by. The patient has experienced similar episodes in the past. Is a 70-year-old female with history of hypertension and hypothyroidism that presents emerged part with complaints of painful urination, mild back pain which radiates to the suprapubic region. Patient denies fever, vomiting, diarrhea. Patient has had similar episodes before with previous urinary tract diagnoses.. Historical: - Allergies: 13:22 No Known Allergies; vg1 - Home Meds: 13:22 atorvastatin 40 mg Oral tab 1 tab once daily [Active]; Cipro 500 mg Oral tab 1 tab vg1 every 12 hours [Active]; citalopram 40 mg tab 1 tab once daily [Active]; levothyroxine 50 mcg tab 1 tab once daily [Active]; lisinopril 30 mg Oral tab 1 tab once daily [Active]; losartan 50 mg Oral tab 1 tab once daily [Active]; orphenadrine citrate 100 mg Oral TbER 1 tab BID PRN [Active]; Protonix 40 mg Oral TbEC 1 tab once daily [Active]; simvastatin 40 mg Oral tab 1 tab once daily [Active]; tramadol 50 mg Oral tab 1 tab q6h prn [Active]; Vitamin D3 Oral daily [Active]; - PMHx: 13:22 Gastric Reflux; Hypertension; Hypothyroidism; vg1 - Immunization history:: Adult Immunizations up to date, Client reports receiving the 2nd dose of the Covid vaccine. - Social history:: Smoking status: Patient denies any tobacco usage or history of. ROS: 13:50 Constitutional: Negative for fever, chills, and weight loss, Cardiovascular: Negative jmm for chest pain, palpitations, and edema, Respiratory: Negative for shortness of breath, cough, wheezing, and pleuritic chest pain. 13:50 Abdomen/GI: Positive for abdominal pain. 13:50 : Positive for urinary symptoms. 13:50 All other systems are negative. Exam: 13:50 Constitutional: This is a well developed, well nourished patient who is awake, alert, jmm and in no acute distress. Head/Face: atraumatic. Eyes: EOMI, no conjunctival erythema appreciated ENT: Moist Mucus Membranes Neck: Trachea midline, Supple Chest/axilla: Normal chest wall appearance and motion. Cardiovascular: Regular rate and rhythm. No edema appreciated Respiratory: Normal respirations, no respiratory distress appreciated 13:50 Abdomen/GI: Inspection: abdomen appears normal, Bowel sounds: normal, Palpation: soft, nontender, in all quadrants. Vital Signs: 13:20 BP 107 / 56; Pulse 64; Resp 16; Temp 97.6; Pulse Ox 100% ; Weight 78.02 kg; Height 5 vg1 ft. 4 in. (162.56 cm); Pain 10/10; 14:28 BP 117 / 53; Pulse 63; Resp 20; Pulse Ox 99% on R/A; kg 13:20 Body Mass Index 29.52 (78.02 kg, 162.56 cm) vg1 MDM: 13:41 Patient medically screened. [facility] 13:59 Data reviewed: vital signs, nurses notes. Counseling: I had a detailed discussion with pieter the patient and/or guardian regarding: the historical points, exam findings, and any diagnostic results supporting the discharge/admit diagnosis, lab results, the need for outpatient follow up, to return to the emergency department if symptoms worsen or persist or if there are any questions or concerns that arise at home. ED course: Her nontoxic in appearance in the ED. I do not suspect pyelonephritis, an acute intra-abdominal process. Patient advised follow-up PCP and otherwise given strict return precautions. Patient understood and agrees plan of care.. 06/01 13:41 Order name: Urine Dipstick-Ancillary; Complete Time: 13:48 EDMS 06/01 14:18 Order name: Urine Culture [facility] Administered Medications: No medications were administered Disposition: 17:12 Co-signature as Attending Physician, Ramiro Cotton MD I agree with the assessment and rn plan of care. Attestation: The patient's history, exam findings, diagnostics, and a summary of any interventions or procedures was reviewed in detail with Robin BA. Disposition Summary: 06/01/21 14:14 Discharge Ordered Location: Home [facility] Condition: Stable [facility] Diagnosis - Urinary Tract Infection [facility] Followup: [facility] - With: Private Physician - When: 2 - 3 days - Reason: Recheck today's complaints, Continuance of care, Re-evaluation by your physician Discharge Instructions: - Discharge Summary Sheet [facility] - Urinary Tract Infection, Adult [facility] Forms: - Medication Reconciliation Form [facility] - Thank You Letter [facility] - Antibiotic Education [facility] - Prescription Opioid Use [facility] Prescriptions: - Cephalexin 500 mg Oral Capsule - take 1 capsule by ORAL route every 8 hours for 10 days; 30 capsule; Refills: 0, jmm Product Selection Permitted Signatures: Dispatcher [employer] EDRobin Youssef PA PA [facility] Ramiro Cotton MD MD rn Nyasia Nava RN RN vg1
--- NOTE | 2021-06-01 14:15 | ER ---
Nurse's Notes [facility] Name: Sunni Nava Age: 70 yrs Sex: Female : 1950 Arrival Date: 06/01/2021 Time: 12:56 Bed DIS1 Private MD: Diagnosis: Urinary Tract Infection Presentation: 06/01 13:20 Chief complaint: Patient states: Right side flank pain that radiates to RUQ and RLQ vg1 began last night. Denies NVD, states burning upon urination. Coronavirus screen: Vaccine status: Patient reports receiving the 2nd dose of the covid vaccine. Ebola Screen: Patient negative for fever greater than or equal to 101.5 degrees Fahrenheit, and additional compatible Ebola Virus Disease symptoms. Initial Sepsis Screen: Does the patient meet any 2 criteria? No. Patient's initial sepsis screen is negative. Does the patient have a suspected source of infection? No. Patient's initial sepsis screen is negative. Risk Assessment: Do you want to hurt yourself or someone else? Patient reports no desire to harm self or others. Onset of symptoms was May 31, 2021. 13:20 Method Of Arrival: Ambulatory vg1 13:20 Acuity: KIN 3 vg1 Triage Assessment: 13:22 Pain: Complains of pain in Right flank pain, RUQ, RLQ Pain currently is 10 out of 10 on vg1 a pain scale. Musculoskeletal: Circulation, motion, and sensation intact. Historical: - Allergies: 13:22 No Known Allergies; vg1 - Home Meds: 13:22 atorvastatin 40 mg Oral tab 1 tab once daily [Active]; Cipro 500 mg Oral tab 1 tab vg1 every 12 hours [Active]; citalopram 40 mg tab 1 tab once daily [Active]; levothyroxine 50 mcg tab 1 tab once daily [Active]; lisinopril 30 mg Oral tab 1 tab once daily [Active]; losartan 50 mg Oral tab 1 tab once daily [Active]; orphenadrine citrate 100 mg Oral TbER 1 tab BID PRN [Active]; Protonix 40 mg Oral TbEC 1 tab once daily [Active]; simvastatin 40 mg Oral tab 1 tab once daily [Active]; tramadol 50 mg Oral tab 1 tab q6h prn [Active]; Vitamin D3 Oral daily [Active]; - PMHx: 13:22 Gastric Reflux; Hypertension; Hypothyroidism; vg1 - Immunization history:: Adult Immunizations up to date, Client reports receiving the 2nd dose of the Covid vaccine. - Social history:: Smoking status: Patient denies any tobacco usage or history of. Screenin:41 Abuse screen: Denies threats or abuse. Denies injuries from another. Nutritional kg screening: No deficits noted. Tuberculosis screening: No symptoms or risk factors identified. Fall Risk None identified. Assessment: 13:40 General: Appears in no apparent distress. Behavior is calm, cooperative, appropriate kg for age, quiet. Pain: Complains of pain in back, right lower quadrant and left lower quadrant Pain radiates to left low back and right low back Pain currently is 10 out of 10 on a pain scale. at worst was 10 out of 10 on a pain scale. level that patient reports is acceptable is 3 out of 10 on a pain scale. Quality of pain is described as burning, aching, crampy, Pain began 1 day ago. Neuro: No deficits noted. Neuro: Level of Consciousness is awake, alert, obeys commands, Oriented to person, place, time, situation, Appropriate for age. : Reports burning with urination, cramping, flank(s) lower back since 05/31 inability to void, pain in suprapubic area flank(s), in lower back Denies. Vital Signs: 13:20 BP 107 / 56; Pulse 64; Resp 16; Temp 97.6; Pulse Ox 100% ; Weight 78.02 kg; Height 5 vg1 ft. 4 in. (162.56 cm); Pain 10/10; 14:28 BP 117 / 53; Pulse 63; Resp 20; Pulse Ox 99% on R/A; kg 13:20 Body Mass Index 29.52 (78.02 kg, 162.56 cm) vg1 ED Course: 12:56 Patient arrived in ED. mr 13:22 Triage completed. vg1 13:22 Arm band placed on. vg1 13:24 Robin Anderson PA is PHCP. m 13:24 Ramiro Cotton MD is Attending Physician. jmm 13:41 Patient has correct armband on for positive identification. kg 13:41 No provider procedures requiring assistance completed. kg 14:29 Patient did not have IV access during this emergency room visit. kg Administered Medications: No medications were administered Outcome: 14:14 Discharge ordered by MD. [place] 14:28 Discharged to home ambulatory. kg 14:28 Condition: good 14:28 Discharge instructions given to patient, Instructed on discharge instructions, follow up and referral plans. Demonstrated understanding of instructions, follow-up care, medications, Prescriptions given X 1. 14:29 Patient left the ED. kg Signatures: Robin Anderson PA PA jmm Rivera, Mary mr Nyasia Nava, RN RN vg1 Yelena Whitney RN RN kg
[2021-06-01 14:33] VITALS: TEMP 97.6
[2021-06-01 14:34] VITALS: BP 117/53; O2SAT 99
== END 2021-06-01 14:29 | disposition home or self-care (01) ==
LOC: ER 12:52
DX: N39.0 Urinary tract infection, site not specified (principal); I10 Essential (primary) hypertension; E03.9 Hypothyroidism, unspecified
CPT/HCPCS: 81003; 87086; 87088; 99282

== ENCOUNTER 2021-09-08 16:48 | Emergency (ER) | payer OTHER ==
--- OUTSIDE RECORDS SUMMARY | 2021-09-08 16:52 | XMS REPORT | Continuity of Care Document ---
:1950 Author Organization [facility] t Address [address] [place] [address] Care Team Providers Name Role Phone RADIOLOGY Attending Clinician Unavailable Addi Horner MD Attending Clinician Colin MCCOY S Attending Clinician Only, Test Attending Clinician Unavailable Joe SALINAS, Jasmin Attending Clinician Doctor Unassigned, Name Attending Clinician Unavailable Yael HOLBROOK Attending Clinician Unavailable Suri CARRERO Attending Clinician Unavailable Kim GIRALDO Attending Clinician Unavailable Payers Payer Name Policy Type Policy Number Effective Date Expiration Date Kim ESPOSITO/[facility] DUAL [id number] 2020 00:00:00 COMP HMO D SNP Problems This patient has no known problems. Allergies, Adverse Reactions, Alerts Allergy Allergy Status Severity Reaction(s) Onset Inactive Treating Comm ents Source Name Type Date Date Clinician NO KNOWN Drug Active Univers ALLERGIE Class ity of [facility] Branch Social History Social Habit Start Date Stop Date Quantity Comments Source History SDAR University o f Alcohol Std [place] [facility] History [facility] University o f Alcohol Binge [place] [facility] Exposure to Not sure University of SARS-CoV-2 [facility] (event) Branch Sex Assigned At Universit y [facility] [place] [facility] Alcohol intake 2020-03-16 2020-03-16 Lifetime University of 00:00:00 00:00:00 non-drinker [facility] (finding) Branch History SDOH 2020-03-16 2020-03-16 1 University o f Alcohol Frequency 00:00:00 00:00:[address] [facility] Tobacco use and 2020-03-16 2020-03-16 Never used Universit y of exposure 00:00:00 00:00:00 [facility] Smoking Status Start Date Stop Date Source Unknown if ever smoked Universit y of [facility] Never smoker [facility] Medications Ordered Filled Start Stop Current Ordering Indication Dosage Frequency Signature Comments Components Source Medication Medication Date Date Medication? Clinician (SIG) Name Name GABAPENTIN 2019-09 Yes [id number] TAKE 1 Univers 300 mg 1-17 CAPSULE BY ity of capsule 00:00: MOUTH 3 [place] 00 TIMES A Medical DAY Branch GABAPENTIN 2020- Yes [id number] TAKE 1 Univers 300 mg 1-05 CAPSULE BY ity of capsule 00:00: MOUTH 3 [place] TIMES A Medical DAY Branch GABAPENTIN 2020- Yes [id number] TAKE 1 Univers 300 mg 1-05 CAPSULE BY ity of capsule 00:00: MOUTH 3 [place] TIMES A Medical DAY Branch GABAPENTIN 2020- Yes [id number] TAKE 1 Univers 300 mg 1-05 CAPSULE BY ity of capsule 00:00: MOUTH 3 [place] TIMES A Medical DAY Branch GABAPENTIN 2020- Yes [id number] TAKE 1 Univers 300 mg 1-05 CAPSULE BY ity of capsule 00:00: MOUTH 3 [place] TIMES A Medical DAY Branch GABAPENTIN 2020- Yes [id number] TAKE 1 Univers 300 mg 1-05 CAPSULE BY ity of capsule 00:00: MOUTH 3 [place] TIMES A Medical DAY Branch GABAPENTIN 2020- 2020- No [id number] TAKE 1 Univers 300 mg 1-05 11-17 CAPSULE BY ity of capsule 00:00: 00:00 MOUTH 3 [place] 00 :00 TIMES A Medical DAY Branch gabapentin 2020-0 2020- No [id number] 300mg Take 1 Univers (NEURONTIN) 7-15 08-15 capsule by i ty of 300 mg 00:00: 04:59 mouth 3 [place] capsule 00 :00 (three) Medical times Branch daily for 30 days. gabapentin 2019- 2020- No [id number] 300mg Take 1 Univers (NEURONTIN) 7-15 08-15 capsule by i ty of 300 mg 00:00: 04:59 mouth 3 [place] capsule 00 :00 (three) Medical times Branch daily for 30 days. gabapentin 2019-2019- No [id number] 300mg Take 1 Univers (NEURONTIN) 7-15 08-15 capsule by i ty of 300 mg 00:00: 04:59 mouth 3 [place] capsule 00 :00 (three) Medical times Branch daily for 30 days. citalopram 2020-0 Yes Univers 40 mg 7-07 ity of tablet 00:00: [place] [facility] citalopram 2020-0 Yes Univers 40 mg 7-07 ity of tablet 00:00: [place] [facility] citalopram 2020-0 Yes Univers 40 mg 7-07 ity of tablet 00:00: [place] [facility] citalopram 2020-0 Yes Univers 40 mg 7-07 ity of tablet 00:00: [place] [facility] citalopram 2020-0 Yes Univers 40 mg 7-07 ity of tablet 00:00: [place] [facility] citalopram 2020-0 Yes Univers 40 mg 7-07 ity of tablet 00:00: [place] [facility] citalopram 2020-0 Yes Univers 40 mg 7-07 ity of tablet 00:00: [place] [facility] citalopram 2020-0 Yes Univers 40 mg 7-07 ity of tablet 00:00: [place] [facility] citalopram 2020-0 Yes Univers 40 mg 7-07 ity of tablet 00:00: [place] [facility] losartan 50 2020-0 Yes 50mg Take 50 mg Univers mg tablet 6-05 by mouth ity of 00:00: daily. [place] [facility] losartan 50 2020-0 Yes 50mg Take 50 mg Univers mg tablet 6-05 by mouth ity of 00:00: daily. [place] [facility] losartan 50 2020-0 Yes 50mg Take 50 mg Univers mg tablet 6-05 by mouth ity of 00:00: daily. [place] [facility] losartan 50 2020-0 Yes 50mg Take 50 mg Univers mg tablet 6-05 by mouth ity of 00:00: daily. [place] [facility] losartan 50 2020-0 Yes 50mg Take 50 mg Univers mg tablet 6-05 by mouth ity of 00:00: daily. [place] [facility] losartan 50 2020-0 Yes 50mg Take 50 mg Univers mg tablet 6-05 by mouth ity of 00:00: daily. [place] [facility] losartan 50 2020-0 Yes 50mg Take 50 mg Univers mg tablet 6-05 by mouth ity of 00:00: daily. [place] [address] Medical Branch losartan 50 2020-0 Yes 50mg Take 50 mg Univers mg tablet 6-05 by mouth ity of 00:00: daily. [place] [facility] losartan 50 2020-0 Yes 50mg Take 50 mg Univers mg tablet 6-05 by mouth ity of 00:00: daily. Medical Branch atorvastati 2020-0 Yes 40mg Take 40 mg Univers n 40 mg 5-17 by mouth ity of tablet 00:00: daily. Medical Branch atorvastati 2020-0 Yes 40mg Take 40 mg Univers n 40 mg 5-17 by mouth ity of tablet 00:00: daily. [facility] Branch atorvastati 2020-0 Yes 40mg Take 40 mg Univers n 40 mg 5-17 by mouth ity of tablet 00:00: daily. [place] [facility] atorvastati 2020-0 Yes 40mg Take 40 mg Univers n 40 mg 5-17 by mouth ity of tablet 00:00: daily. [place] [facility] atorvastati 2020-0 Yes 40mg Take 40 mg Univers n 40 mg 5-17 by mouth ity of tablet 00:00: daily. [place] [facility] atorvastati 2020-0 Yes 40mg Take 40 mg Univers n 40 mg 5-17 by mouth ity of tablet 00:00: daily. [place] [facility] atorvastati 2020-0 Yes 40mg Take 40 mg Univers n 40 mg 5-17 by mouth ity of tablet 00:00: daily. [place] [facility] atorvastati 2020-0 Yes 40mg Take 40 mg Univers n 40 mg 5-17 by mouth ity of tablet 00:00: daily. [place] [facility] atorvastati 2020-0 Yes 40mg Take 40 mg Univers n 40 mg 5-17 by mouth ity of tablet 00:00: daily. [place] [facility] Branch levothyroxi 2020-0 Yes 50ug Take 50 Uni vers ne 50 mcg 4-30 mcg by ity of tablet 00:00: mouth. [place] [facility] levothyroxi 2020-0 Yes 50ug Take 50 Uni vers ne 50 mcg 4-30 mcg by ity of tablet 00:00: mouth. [place] [facility] levothyroxi 2020-0 Yes 50ug Take 50 Uni vers ne 50 mcg 4-30 mcg by ity of tablet 00:00: mouth. [place] [facility] levothyroxi 2020-0 Yes 50ug Take 50 Uni vers ne 50 mcg 4-30 mcg by ity of tablet 00:00: mouth. [address] levothyroxi 2020-0 Yes 50ug Take 50 Uni vers ne 50 mcg 4-30 mcg by ity of tablet 00:00: mouth. [place] [facility] levothyroxi 2020-0 Yes 50ug Take 50 Uni vers ne 50 mcg 4-30 mcg by ity of tablet 00:00: mouth. [address] levothyroxi 2019-0 Yes 50ug Take 50 Uni vers ne 50 mcg 4-30 mcg by ity of tablet 00:00: mouth. [place] [facility] levothyroxi 2020-0 Yes 50ug Take 50 Uni vers ne 50 mcg 4-30 mcg by ity of tablet 00:00: mouth. [address] levothyroxi 2020-0 Yes 50ug Take 50 Uni vers ne 50 mcg 4-30 mcg by ity of tablet 00:00: mouth. [address] Vital Signs Vital Name Observation Time Observation Value Comments Source Systolic blood 2020-03-16 19:25:00 115 mm[Hg[facility] 2020-03-16 19:25:00 63 mm[Hg] [facility] 2020-03-16 19:25:00 74 /min Universi ty [facility] Body height 2020-03-16 19:25:00 161.3 cm Universi ty [facility] Body weight 2020-03-16 19:25:00 92.806 kg Universi ty [facility] BMI 2020-03-16 19:25:00 35.67 kg/m2 Universi ty [facility] Systolic blood 2020-03-16 19:25:00 115 mm[Hg] [facility] 2020-03-16 19:25:00 63 mm[Hg] [facility] 2020-03-16 19:25:00 74 /min Universi ty [facility] Body height 2020-03-16 19:25:00 161.3 cm Universi ty [facility] Body weight 2020-03-16 19:25:00 92.806 kg Universi ty [facility] BMI 2020-03-16 19:25:00 35.67 kg/m2 Universi ty [facility] Procedures Procedure Date / Time Performed Performing Clinician [facility] ASSIGNMENT OF BENEFITS 2020-07-14 18:06:32 Doctor Unassigned, No [facility] ASSIGNMENT OF BENEFITS 2020-03-16 19:19:42 Doctor Unassigned, No [facility] Encounters Start End Encounter Admission Attending Care Care Encounter Source Date/Time Date/Time Type Type Clinicians Facility Department ID 2021-02-09 2021-02-09 Outpatient R [facility] [id number] Univers 10:00:00 10:00:00 [id number] ity [facility] 2021-02-09 2021-02-09 Outpatient R [facility] [id number] Univers 00:00:00 00:00:00 ity [facility] 2021-02-02 2021-02-02 Outpatient R [facility] [id number] Univers 10:00:00 10:00:00 [id number] ity [facility] 2021-02-02 2021-02-02 Outpatient R RADIOLOGY [facility] [id number] Univers 00:00:00 00:00:00 ity [facility] 2020-07-18 2020-07-18 Bart John [facility] 1.2.840.114 [id number] 00:00:00 00:00:00 (Out) [facility] [id number] [place] [id number] Professio [id number] [address] One 2020-07-18 2020-07-18 Bart John [facility] 1.2.840.114 [id number] Univers 00:00:00 00:00:00 (Out) [facility] [id number] it y of [place] [id number] Derrick as Professio [id number] Mn dical [address] Office Building One 2020-07-16 2020-07-16 Hawk Giraldo MAFABIANA 1.2.840.114 [id number] 00:00:00 00:00:00 [facility] [id number] Surgical [id number] Specialti [id number] es [address] [place] 2020-07-16 2020-07-16 Hawk Giraldo [facility] 1.2.840.114 [id number] Univers 00:00:00 00:00:00 [facility] [id number] it y of Surgical [id number] Derrick as Specialti [id number] Mn dical es 198 [facility] 2020-07-14 2020-07-14 Laboratory Only, [facility] 1.2.840.114 [id number] 12:09:44 12:24:44 Only Test [place] [id number] [place] [id number] Ethel [id number] 353 2020-07-14 2020-07-14 Laboratory Only, [facility] Test [facility] 1.2.840. 114 [id number] Univers 12:09:44 12:24:44 Only Darren Diaz [place] [id number] ity of [place] [id number] [facility] [address] 2020-07-14 2020-07-14 Outpatient R [facility] [id number] Univers 12:00:00 12:00:00 [id number] ity of [facility] 2020-07-14 2020-07-14 Outpatient R [facility] [id number] Univers 12:00:00 12:00:00 ity of [facility] 2020-07-14 2020-07-14 Orders Doctor HAYNES 1.2.840.114 [id number] 00:00:00 00:00:00 Only Unassigned, BREANNA [id number] [place] [facility] 4.2.7.2.686 [id number] 009 2020-07-14 2020-07-14 Letter Chiqui Conley 1.2.840.114 [id number] 00:00:00 00:00:00 (Out) BREANNA [id number] HOSPITAL 4.2.7.2.686 [id number] 2020-07-14 2020-07-14 Orders Doctor HAYNES 1.2.840.114 [id number] Univers 00:00:00 00:00:00 Only Unassigned, BREANNA [id number] ity of [place] [facility] 4.2.7.2.686 Derrick as [id number] [facility] [address] [place] 2020-07-14 2020-07-14 Santiago MarirChiqui 1.2.840.114 [id number] Univers 00:00:00 00:00:00 (Out) BREANNA [id number] it y of HOSPITAL 4.2.7.2.686 Derrick as [id number] [address] 2020-07-06 2020-07-06 [facility] 1.2.840.114 [id number] 00:00:00 00:00:00 [facility] [id number] Surgical 4.2.7.2.686 Specialti [id number] es 198 [place] 2020-07-06 2020-07-06 [facility] 1.2.840.114 [id number] Univers 00:00:00 00:00:00 Leidy S Health [id number] it y of Surgical 4.2.7.2.686 Derrick as Specialti [id number] Mn dical es 198 [facility] 2020-06-28 2020-06-28 Outpatient [facility] [id number] Univers 09:00:00 09:00:00 [id number] [facility] 2020-06-28 2020-06-28 [facility] [id number] Univers 09:00:00 09:00:00 VENESSA [facility] 2020-03-16 2020-05-02 Office [facility] 1.2.840.114 [id number] 14:21:17 12:54:12 Visit [facility] [id number] Surgical 4.2.7.2.686 Specialti [id number] es [address] [place] [address] 2020-03-16 2020-05-02 Office [facility] 1.2.840.114 [id number] Univers 14:21:17 12:54:12 Visit [facility] [id number] it y of Surgical 4.2.7.2.686 Derrick as Specialti [id number] Me dical es 198 [facility] 2020-03-16 2020-03-16 [facility] [id number] Univers 14:45:00 14:45:00 LEIDY [id number] [facility] 2020-03-16 2020-03-16 Outpatient R COLIN [facility] [id number] Univers 14:45:00 14:45:00 LEIDY ity [facility] 2020-03-16 2020-03-16 Orders Doctor DALLAS 1.2.840.114 [id number] Univers 00:00:00 00:00:00 Only Unassigned, BREANNA [id number] ity of [place] [facility] 4.2.7.2.686 Derrick as [phone] [place] [address] Branch Results This patient has no known results.
[2021-09-08 18:33] LABS: Urine Blood Negative (Negative); Urine Glucose Negative (Negative); Urine Protein Negative (Negative); Urine Specific Gravity 1.025 (1.005-1.030)
[2021-09-08 18:55] LABS: Urine Bacteria <20 /HPF (<20); Urine RBC NONE SEEN /HPF (NONE SEEN)
--- NOTE | 2021-09-08 20:03 | ER ---
Nurse's Notes [facility] Name: Sunni Nava Age: 70 yrs Sex: Female : 1950 Arrival Date: 09/08/2021 Time: 16:54 Bed 24 Private MD: Bart Horner Diagnosis: UTI/ Urinary tract infection, site not specified;Dysuria Presentation: 09/08 17:24 Chief complaint: Patient states: last night i started with my back hurting. and it is tw2 burning when i pee. Coronavirus screen: At this time, the client does not indicate any symptoms associated with coronavirus-19. Ebola Screen: Patient denies travel to an Ebola-affected area in the 21 days before illness onset. Initial Sepsis Screen: Does the patient meet any 2 criteria? No. Patient's initial sepsis screen is negative. Does the patient have a suspected source of infection? No. Patient's initial sepsis screen is negative. Risk Assessment: Do you want to hurt yourself or someone else? Patient reports no desire to harm self or others. Onset of symptoms was September 08, 2021. 17:24 Method Of Arrival: Ambulatory tw2 17:24 Acuity: KIN 3 tw2 Triage Assessment: 17:26 General: Appears in no apparent distress. obese, well groomed, Behavior is calm, tw2 cooperative, appropriate for age. Pain: Complains of pain in right mid back and right low back. : Reports burning with urination. Musculoskeletal: Range of motion: intact in all extremities. Historical: - Allergies: 17:25 No Known Drug Allergies; tw2 - Home Meds: 17:25 atorvastatin 40 mg Oral tab 1 tab once daily [Active]; citalopram 40 mg tab 1 tab once tw2 daily [Active]; losartan 50 mg Oral tab 1 tab once daily [Active]; lisinopril 30 mg Oral tab 1 tab once daily [Active]; simvastatin 40 mg Oral tab 1 tab once daily [Active]; orphenadrine citrate 100 mg Oral TbER 1 tab BID PRN [Active]; levothyroxine 50 mcg tab 1 tab once daily [Active]; Protonix 40 mg Oral TbEC 1 tab once daily [Active]; tramadol 50 mg Oral tab 1 tab q6h prn [Active]; Cipro 500 mg Oral tab 1 tab every 12 hours [Active]; Vitamin D3 Oral daily [Active]; - PMHx: 17:25 Gastric Reflux; Hypertension; Hypothyroidism; tw2 - Immunization history:: Client reports receiving the 2nd dose of the Covid vaccine. - Social history:: Smoking status: Patient denies any tobacco usage or history of. Screenin:44 Abuse screen: Denies threats or abuse. Denies injuries from another. Nutritional kd3 screening: No deficits noted. Tuberculosis screening: No symptoms or risk factors identified. Fall Risk None identified. Assessment: 19:45 General: Appears in no apparent distress. Behavior is calm, cooperative, appropriate kd3 for age. Pain: Complains of pain in lumbar area, left low back and right low back. Neuro: No deficits noted. Level of Consciousness is awake, alert, Oriented to person, place, time, situation, Appropriate for age. Cardiovascular: No deficits noted. Patient's skin is warm and dry. Respiratory: No deficits noted. Airway is patent Respiratory effort is even, unlabored. Vital Signs: 17:26 BP 124 / 75; Pulse 74; Resp 18; Temp 97.7(TE); Pulse Ox 100% on R/A; Pain 10/10; tw2 19:46 BP 135 / 70; Pulse 75; Resp 16; Temp 98.2; Pulse Ox 100% on R/A; Pain 9/10; kd3 ED Course: 16:54 Patient arrived in ED. am2 16:55 Bart Horner is Private Physician. am2 17:25 Triage completed. tw2 17:25 Arm band placed on. tw2 18:33 Urine Dipstick-Ancillary Sent. eb 19:25 Isabel Wade, SHERON is Primary Nurse. kd3 19:32 Landen Carlson MD is Attending Physician. kdr 19:44 Patient has correct armband on for positive identification. Placed in gown. Side rails kd3 up X 1. 20:02 Bart Horner is Referral Physician. kdr 20:25 No provider procedures requiring assistance completed. Patient did not have IV access kd3 during this emergency room visit. Administered Medications: 20:21 Drug: Bactrim (trimethoprim-sulfamethoxazole) (160 mg-800 mg (DS) 1 tablet Route: PO; kd3 20:21 Drug: Ketorolac 15 mg Route: IM; Site: left gluteus; kd3 Outcome: 20:03 Discharge ordered by . kdr 20:26 Discharged to home ambulatory. kd3 20:26 Condition: stable 20:26 Discharge instructions given to patient, Instructed on discharge instructions, follow up and referral plans. medication usage, Prescriptions given X 2. 20:26 Patient left the ED. kd3 Signatures: Landen Carlson MD MD kdr Wise, Tara, RN RN tw2 Archana Stacy Elizabeth eb Doucette, Kyli, RN RN kd3
--- NOTE | 2021-09-08 20:03 | EDPHYS ---
Physician Documentation [facility] Name: Sunni Nava Age: 70 yrs Sex: Female : 1950 Arrival Date: 09/08/2021 Time: 16:54 Bed 24 Private MD: Bart oHrner ED Physician Landen Carlson HPI: 09/08 19:57 This 70 yrs old Female presents to ER via Ambulatory with complaints of Back kdr Pain. 19:57 The patient presents with pain that is acute, with no known mechanism of injury. kdr 19:57 The patient states that last night she started having burning with urination and her kdr right flank and back were hurting. Those complaints have continued today and not improved. She claims to have had a subjective fever but did not measure a temperature. Onset: The symptoms/episode began/occurred gradually, last night. Severity of symptoms: At their worst the symptoms were mild in the emergency department the symptoms are unchanged. The patient has not experienced similar symptoms in the past. The patient has not recently seen a physician. Patient states she has had similar symptoms in the past but has been sometime. She does not recall the last time. She also does not recall whether or not she has had her appendix out. She states however that "everything" was taken out.. Historical: - Allergies: 17:25 No Known Drug Allergies; tw2 - Home Meds: 17:25 atorvastatin 40 mg Oral tab 1 tab once daily [Active]; citalopram 40 mg tab 1 tab once tw2 daily [Active]; losartan 50 mg Oral tab 1 tab once daily [Active]; lisinopril 30 mg Oral tab 1 tab once daily [Active]; simvastatin 40 mg Oral tab 1 tab once daily [Active]; orphenadrine citrate 100 mg Oral TbER 1 tab BID PRN [Active]; levothyroxine 50 mcg tab 1 tab once daily [Active]; Protonix 40 mg Oral TbEC 1 tab once daily [Active]; tramadol 50 mg Oral tab 1 tab q6h prn [Active]; Cipro 500 mg Oral tab 1 tab every 12 hours [Active]; Vitamin D3 Oral daily [Active]; - PMHx: 17:25 Gastric Reflux; Hypertension; Hypothyroidism; tw2 - Immunization history:: Client reports receiving the 2nd dose of the Covid vaccine. - Social history:: Smoking status: Patient denies any tobacco usage or history of. ROS: 19:57 Constitutional: Negative for fever, chills, and weight loss, Eyes: Negative for injury, kdr pain, redness, and discharge, ENT: Negative for injury, pain, and discharge, Neck: Negative for injury, pain, and swelling, Cardiovascular: Negative for chest pain, palpitations, and edema, Respiratory: Negative for shortness of breath, cough, wheezing, and pleuritic chest pain, : Negative for injury, bleeding, discharge, and swelling, MS/Extremity: Negative for injury and deformity, Skin: Negative for injury, rash, and discoloration, Neuro: Negative for headache, weakness, numbness, tingling, and seizure activity. Psych: Negative for depression, anxiety, suicide ideation, homicidal ideation, and hallucinations, Allergy/Immunology: Negative for hives, rash, and allergies, Endocrine: Negative for neck swelling, polydipsia, polyuria, polyphagia, and marked weight changes, Hematologic/Lymphatic: Negative for swollen nodes, abnormal bleeding, and unusual bruising. 19:57 Abdomen/GI: Positive for abdominal pain, nausea, Negative for vomiting, diarrhea, constipation, abdominal cramps, abdominal distension, anorexia, dysphagia, hematemesis, black/tarry stool, rectal pain, rectal bleeding, bowel incontinence. 19:57 Back: Positive for pain at rest, of the right mid back. Exam: 19:57 Constitutional: This is a well developed, well nourished patient who is awake, alert, kdr and in no acute distress. Head/Face: Normocephalic, atraumatic. Eyes: Pupils equal round and reactive to light, extra-ocular motions intact. Lids and lashes normal. Conjunctiva and sclera are non-icteric and not injected. Cornea within normal limits. Periorbital areas with no swelling, redness, or edema. Neck: Trachea midline, no thyromegaly or masses palpated, and no cervical lymphadenopathy. Supple, full range of motion without nuchal rigidity, or vertebral point tenderness. No Meningismus. Chest/axilla: Normal chest wall appearance and motion. Nontender with no deformity. No lesions are appreciated. Cardiovascular: Regular rate and rhythm with a normal S1 and S2. No gallops, murmurs, or rubs. Normal PMI, no JVD. No pulse deficits. Respiratory: Lungs have equal breath sounds bilaterally, clear to auscultation and percussion. No rales, rhonchi or wheezes noted. No increased work of breathing, no retractions or nasal flaring. Skin: Warm, dry with normal turgor. Normal color with no rashes, no lesions, and no evidence of cellulitis. MS/ Extremity: Pulses equal, no cyanosis. Neurovascular intact. Full, normal range of motion. Neuro: Awake and alert, GCS 15, oriented to person, place, time, and situation. Cranial nerves II-XII grossly intact. Motor strength 5/5 in all extremities. Sensory grossly intact. Cerebellar exam normal. Normal gait. Psych: Awake, alert, with orientation to person, place and time. Behavior, mood, and affect are within normal limits. 19:57 Abdomen/GI: Inspection: obese Bowel sounds: active, all quadrants, Palpation: soft, The patient had extremely minimal discomfort in her right lower quadrant. Further is unable to elicit any rebound tenderness. Additionally, her psoas and obturator signs were negative. There was also no McBurney's point tenderness. Patient had a very marginal exam with very little to no pain elicited. Further she denied abdominal pain with ambulation, Indicators: McBurney's point is not tender, Ohara's sign is negative, Rovsing's sign is negative, Obturator sign is negative, Psoas sign is negative. Vital Signs: 17:26 BP 124 / 75; Pulse 74; Resp 18; Temp 97.7(TE); Pulse Ox 100% on R/A; Pain 10/10; tw2 19:46 BP 135 / 70; Pulse 75; Resp 16; Temp 98.2; Pulse Ox 100% on R/A; Pain 9/10; kd3 MDM: 19:57 Data reviewed: vital signs, nurses notes, lab test result(s). Counseling: I had a kdr detailed discussion with the patient and/or guardian regarding: the historical points, exam findings, and any diagnostic results supporting the discharge/admit diagnosis, lab results, the need for outpatient follow up. Special discussion: Based on the patient's Hx, exam, and Dx evaluation, there is no indication for emergent surgery or inpatient Tx. It is understood by the patient/guardian that if the Sx's persist or worsen they need to return immediately for re-evaluation. 20:03 Patient medically screened. kdr 09/08 18:33 Order name: Urine Dipstick-Ancillary; Complete Time: 19:55 EDMS 09/08 18:33 Order name: Urine Microscopic Only; Complete Time: 19:55 eb 09/08 18:33 Order name: Urine Dipstick-Ancillary (obtain specimen); Complete Time: 18:33 eb Administered Medications: 20:21 Drug: Bactrim (trimethoprim-sulfamethoxazole) (160 mg-800 mg (DS) 1 tablet Route: PO; kd3 20:21 Drug: Ketorolac 15 mg Route: IM; Site: left gluteus; kd3 Disposition Summary: 09/08/21 20:03 Discharge Ordered Location: Home kdr Problem: new kdr Symptoms: have improved kdr Condition: Stable kdr Diagnosis - UTI/ Urinary tract infection, site not specified kdr - Dysuria kdr Followup: kdr - With: Bart Horner - When: 2 - 3 days - Reason: If symptoms return, Further diagnostic work-up, Recheck today's complaints, Continuance of care, Re-evaluation by your physician Discharge Instructions: - Discharge Summary Sheet kdr - Dysuria kdr - Urinary Tract Infection, Adult, [id number] kdr - Abdominal Pain, Adult, [id number] kdr Forms: - Medication Reconciliation Form kdr - Thank You Letter kdr - Antibiotic Education kdr Prescriptions: - Pyridium 200 mg Oral Tablet - take 1 tablet by ORAL route every 8 hours for 3 days; 9 tablet; Refills: 0, kdr Product Selection Permitted - Bactrim DS 800-160 mg Oral Tablet - take 1 tablet by ORAL route every 12 hours for 7 days; 14 tablet; Refills: 0, kdr Product Selection Permitted Signatures: Dispatcher [employer] [facility] Landen Carlson MD MD kdr Wise, Tara RN RN tw2 Mavis Jasso Kyli, RN RN kd3
[2021-09-08] MEDS ORDERED: SMZ./TMP. 800/160 MG TABLET ONE (20:09)
[2021-09-08] MEDS ORDERED: KETOROLAC 30 MG/ML INJ ONE (20:16)
[2021-09-08 20:31] VITALS: O2SAT 100
[2021-09-08 20:33] VITALS: BP 135/70; TEMP 98.2
== END 2021-09-08 20:26 | disposition home or self-care (01) ==
LOC: ER 16:48
DX: N39.0 Urinary tract infection, site not specified (principal)
CPT/HCPCS: 81003; 81015; 96372; 99283

== ENCOUNTER 2021-09-12 15:18 | Emergency (ER) | payer OTHER ==
--- OUTSIDE RECORDS SUMMARY | 2021-09-12 15:21 | XMS REPORT | Continuity of Care Document ---
:1950 Author Organization [facility] t Address [address] [place] [address] Care Team Providers Name Role Phone RADIOLOGY Attending Clinician Unavailable Addi Horner MD Attending Clinician Colin MCCOY S Attending Clinician Only, Test Attending Clinician Unavailable Jasmin Diaz MD Attending Clinician Doctor Unassigned, Name Attending Clinician Unavailable Yael HOLBROOK Attending Clinician Unavailable Suri CARRERO Attending Clinician Unavailable Kim GIRALDO Attending Clinician Unavailable Payers Payer Name Policy Type Policy Number Effective Date Expiration Date Kim [facility] DUAL [id number] 2020 00:00:00 COMP HMO D SNP Problems This patient has no known problems. Allergies, Adverse Reactions, Alerts Allergy Allergy Status Severity Reaction(s) Onset Inactive Treating Comm ents Source Name Type Date Date Clinician NO KNOWN Drug Active Univers ALLERGIE Class ity of S [facility] Branch Social History Social Habit Start Date Stop Date Quantity Comments Source History SDSC University o f Alcohol Std [place] [facility] Dr[facility] History SDSC University o f Alcohol Binge [place] [facility] Exposure to Not sure University of SARS-CoV-2 [facility] (event) Branch Sex Assigned At Universit y of [place] [facility] Alcohol intake 2020-03-16 2020-03-16 Lifetime University of 00:00:00 00:00:00 non-drinker [facility] (finding) Branch History SDOH 2020-03-16 2020-03-16 1 University o f Alcohol Frequency 00:00:00 00:00:00 [facility] [place] [facility] [place] Tobacco use and 2020-03-16 2020-03-16 Never used Universit y of exposure 00:00:00 00:00:00 [facility] Smoking Status Start Date Stop Date Source Unknown if ever smoked Universit y of [facility] Never smoker [facility] Medications Ordered Filled Start Stop Current Ordering Indication Dosage Frequency Signature Comments Components Source Medication Medication Date Date Medication? Clinician (SIG) Name Name GABAPENTIN 2019-09 Yes [id number] TAKE 1 Univers 300 mg 1-17 CAPSULE BY ity of capsule 00:00: MOUTH 3 [place] 00 TIMES A Medical DAY Branch GABAPENTIN 2020- Yes [id number] TAKE 1 Univers 300 mg 1-05 CAPSULE BY ity of capsule 00:00: MOUTH 3 [place] TIMES A Medical DAY Branch GABAPENTIN 2020- Yes [id number] TAKE 1 Univers 300 mg 1-05 CAPSULE BY ity of capsule 00:00: MOUTH 3 [place] TIMES A Medical DAY Branch GABAPENTIN 2020- Yes [id number] TAKE 1 Univers 300 mg 1-05 CAPSULE BY ity of capsule 00:00: MOUTH 3 [place] TIMES A Medical DAY Branch GABAPENTIN 2020- Yes [id number] TAKE 1 Univers 300 mg 1-05 CAPSULE BY ity of capsule 00:00: MOUTH 3 [place] TIMES A Medical DAY Branch GABAPENTIN 2020- Yes [id number] TAKE 1 Univers 300 mg 1-05 CAPSULE BY ity of capsule 00:00: MOUTH 3 [place] TIMES A Medical DAY Branch GABAPENTIN 2020- 2020- No [id number] TAKE 1 Univers 300 mg 1-05 11-17 CAPSULE BY ity of capsule 00:00: 00:00 MOUTH 3 [place] 00 :00 TIMES A Medical DAY Branch gabapentin 2019-0 2020- No [id number] 300mg Take 1 Univers (NEURONTIN) 7-15 08-15 capsule by i ty of 300 mg 00:00: 04:59 mouth 3 [place] capsule 00 :00 (three) Medical times Branch daily for 30 days. gabapentin 2019- 2020- No [id number] 300mg Take 1 Univers (NEURONTIN) 7-15 08-15 capsule by i ty of 300 mg 00:00: 04:59 mouth 3 [place] capsule 00 :00 (three) Medical times Branch daily for 30 days. gabapentin 2019-2019- No [id number] 300mg Take 1 Univers (NEURONTIN) 7-15 08-15 capsule by i ty of 300 mg 00:00: 04:59 mouth 3 [place] capsule 00 :00 (three) Medical times Branch daily for 30 days. citalopram 2020-0 Yes Univers 40 mg 7-07 ity of tablet 00:00: [place] [facility] citalopram 2020-0 Yes Univers 40 mg 7-07 ity of tablet 00:00: [place] [facility] citalopram 2020-0 Yes Univers 40 mg 7-07 ity of tablet 00:00: [place] [facility] citalopram 2020-0 Yes Univers 40 mg 7-07 ity of tablet 00:00: [place] [facility] citalopram 2020-0 Yes Univers 40 mg 7-07 ity of tablet 00:00: [place] [facility] citalopram 2020-0 Yes Univers 40 mg 7-07 ity of tablet 00:00: [place] [facility] citalopram 2020-0 Yes Univers 40 mg 7-07 ity of tablet 00:00: [place] [facility] citalopram 2020-0 Yes Univers 40 mg 7-07 ity of tablet 00:00: [place] [facility] citalopram 2020-0 Yes Univers 40 mg 7-07 ity of tablet 00:00: [place] [facility] losartan 50 2020-0 Yes 50mg Take 50 mg Univers mg tablet 6-05 by mouth ity of 00:00: daily. [place] [facility] losartan 50 2020-0 Yes 50mg Take 50 mg Univers mg tablet 6-05 by mouth ity of 00:00: daily. [place] [facility] losartan 50 2020-0 Yes 50mg Take 50 mg Univers mg tablet 6-05 by mouth ity of 00:00: daily. [place] [facility] losartan 50 2020-0 Yes 50mg Take 50 mg Univers mg tablet 6-05 by mouth ity of 00:00: daily. [place] [facility] losartan 50 2020-0 Yes 50mg Take 50 mg Univers mg tablet 6-05 by mouth ity of 00:00: daily. [place] [facility] losartan 50 2020-0 Yes 50mg Take 50 mg Univers mg tablet 6-05 by mouth ity of 00:00: daily. [place] [facility] losartan 50 2020-0 Yes 50mg Take 50 mg Univers mg tablet 6-05 by mouth ity of 00:00: daily. [place] [facility] losartan 50 2020-0 Yes 50mg Take 50 mg Univers mg tablet 6-05 by mouth ity of 00:00: daily. [place] [facility] [place] losartan 50 2020-0 Yes 50mg Take 50 mg Univers mg tablet 6-05 by mouth ity of 00:00: daily. [place] [facility] atorvastati 2020-0 Yes 40mg Take 40 mg Univers n 40 mg 5-17 by mouth ity of tablet 00:00: daily. Medical Branch atorvastati 2020-0 Yes 40mg Take 40 mg Univers n 40 mg 5-17 by mouth ity of tablet 00:00: daily. [facility] Branch atorvastati 2020-0 Yes 40mg Take 40 mg Univers n 40 mg 5-17 by mouth ity of tablet 00:00: daily. [place] [facility] atorvastati 2020-0 Yes 40mg Take 40 mg Univers n 40 mg 5-17 by mouth ity of tablet 00:00: daily. [place] [facility] atorvastati 2020-0 Yes 40mg Take 40 mg Univers n 40 mg 5-17 by mouth ity of tablet 00:00: daily. [place] [facility] atorvastati 2020-0 Yes 40mg Take 40 mg Univers n 40 mg 5-17 by mouth ity of tablet 00:00: daily. [place] [facility] atorvastati 2020-0 Yes 40mg Take 40 mg Univers n 40 mg 5-17 by mouth ity of tablet 00:00: daily. [place] [facility] atorvastati 2020-0 Yes 40mg Take 40 mg Univers n 40 mg 5-17 by mouth ity of tablet 00:00: daily. [place] [facility] atorvastati 2020-0 Yes 40mg Take 40 mg Univers n 40 mg 5-17 by mouth ity of tablet 00:00: daily. [place] [facility] Branch levothyroxi 2020-0 Yes 50ug Take 50 Uni vers ne 50 mcg 4-30 mcg by ity of tablet 00:00: mouth. [place] [facility] levothyroxi 2020-0 Yes 50ug Take 50 Uni vers ne 50 mcg 4-30 mcg by ity of tablet 00:00: mouth. [place] [facility] Branch levothyroxi 2020-0 Yes 50ug Take 50 Uni vers ne 50 mcg 4-30 mcg by ity of tablet 00:00: mouth. [place] [facility] levothyroxi 2020-0 Yes 50ug Take 50 Uni vers ne 50 mcg 4-30 mcg by ity of tablet 00:00: mouth. [address] levothyroxi 2020-0 Yes 50ug Take 50 Uni vers ne 50 mcg 4-30 mcg by ity of tablet 00:00: mouth. [place] [facility] levothyroxi 2019-0 Yes 50ug Take 50 Uni vers ne 50 mcg 4-30 mcg by ity of tablet 00:00: mouth. [place] [facility] [place] levothyroxi 2019-0 Yes 50ug Take 50 Uni vers ne 50 mcg 4-30 mcg by ity of tablet 00:00: mouth. [place] [facility] [place] levothyroxi 2019-0 Yes 50ug Take 50 Uni vers ne 50 mcg 4-30 mcg by ity of tablet 00:00: mouth. [place] [facility] levothyroxi 2019-0 Yes 50ug Take 50 Uni vers ne 50 mcg 4-30 mcg by ity of tablet 00:00: mouth. [address] Vital Signs Vital Name Observation Time Observation Value Comments Source Systolic blood 2020-03-16 19:25:00 115 mm[Hg] [facility] 2020-03-16 19:25:00 63 mm[Hg] [facility] 2020-03-16 19:25:00 74 /min Universi ty [facility] Body height 2020-03-16 19:25:00 161.3 cm Universi ty [facility] Body weight 2020-03-16 19:25:00 92.806 kg Universi ty [facility] BMI 2020-03-16 19:25:00 35.67 kg/m2 Universi ty [facility] Systolic blood 2020-03-16 19:25:00 115 mm[Hg] [facility] Diastolic blood 2020-03-16 19:25:00 63 mm[Hg] [facility] 2020-03-16 19:25:00 74 /min Universi ty [facility] Body height 2020-03-16 19:25:00 161.3 cm Universi ty [facility] Body weight 2020-03-16 19:25:00 92.806 kg Universi ty [facility] BMI 2020-03-16 19:25:00 35.67 kg/m2 Universi ty [facility] Procedures Procedure Date / Time Performed Performing Clinician [facility] e ASSIGNMENT OF BENEFITS 2020-07-14 18:06:32 Doctor Unassigned, No General acute hospital ASSIGNMENT OF BENEFITS 2020-03-16 19:19:42 Doctor Unassigned, No General acute hospital Encounters Start End Encounter Admission Attending Care Care Encounter Source Date/Time Date/Time Type Type Clinicians Facility Department ID 2021-02-09 2021-02-09 Outpatient R [facility] [id number] Univers 10:00:00 10:00:00 [id number] ity [facility] 2021-02-09 2021-02-09 Outpatient R [facility] [id number] Univers 00:00:00 00:00:00 ity [facility] 2021-02-02 2021-02-02 Outpatient R [facility] [id number] Univers 10:00:00 10:00:00 [id number] [facility]-02-[facility] 2021-02-02 Outpatient R RADIOLOGY [facility] [id number] Univers 00:00:00 00:00:00 ity [facility] 2020-07-18 2020-07-18 Bart John [facility] [id number] 00:00:00 00:00:00 (Out) [facility] [id number] [place] [id number] Professio [phone] nal [address] [place] [address] One 2020-07-18 2020-07-18 Bart John [facility] [id number] Univers 00:00:00 00:00:00 (Out) [facility] [id number] it y of [place] [id number] Derrick as Professio [phone] Ia dical nal [address] [place] [address] One 2020-07-16 2020-07-16 Hawk Giraldo [facility] [id number] Univers 00:00:00 00:00:00 [facility] Health [id number] it y of Surgical [id number] Derrick as Specialti [phone] Ia dical es [address] [facility] 2020-07-16 2020-07-16 Hawk Giraldo [facility] 1.2.840.114 [id number] 00:00:00 00:00:00 [facility] [id number] Surgical [id number] Special [phone] es [address] [place] 2020-07-14 2020-07-14 Laboratory Only, [facility] Test [facility] 1.2.840. 114 [id number] Univers 12:09:44 12:24:44 Only Darren Diaz [id number] ity of [place] [id number] [facility] [id number] [address] 2020-07-14 2020-07-14 Laboratory Only, [facility] 1.2.840.114 [id number] 12:09:44 12:24:44 Only Test [place] [id number] [place] [id number] [place] [id number] 353 2020-07-14 2020-07-14 Outpatient R [facility] [id number] Univers 12:00:00 12:00:00 [id number] ity of [facility] 2020-07-14 2020-07-14 Outpatient R [facility] [id number] Univers 12:00:00 12:00:00 ity [facility] 2020-07-14 2020-07-14 Orders Doctor HAYNES 1.2.840.114 [id number] 00:00:00 00:00:00 Only Unassigned, BREANNA [id number] [facility] [id number] [id number] 009 2020-07-14 2020-07-14 Chiqui Elmore 1.2.840.114 [id number] 00:00:00 00:00:00 (Out) BREAN[facility] [id number] HOSPITAL [id number] [id number] 2020-07-14 2020-07-14 Orders Doctor HAYNES 1.2.840.114 [id number] Univers 00:00:00 00:00:00 Only Unassigned, BREANNA [id number] ity of [facility] [id number] Derrick [id number] [facility] [address] [place] 2020-07-14 2020-07-14 Santiago ConleyChiqui [place] 1.2.840.114 [id number] Univers 00:00:00 00:00:00 (Out) BREANNA [id number] it y of HOSPITAL [id number] Derrick as [id number] [address] 2020-07-06 2020-07-06 [facility] 1.2.840.114 [id number] 00:00:00 00:00:00 [facility] Health [id number] Surgical [id number] Specialti [phone] es 198 [place] 2020-07-06 2020-07-06 [facility] 1.2.840.114 [id number] Univers 00:00:00 00:00:00 [facility] [id number] it y of Surgical [id number] Derrick as Specialti [phone] Ia dical es [address] [facility] 2020-06-28 2020-06-28 Outpatient [facility] [id number] Univers 09:00:00 09:00:00 [id number] [facility] 2020-06-28 2020-06-28 Outpatient R [facility] [id number] Univers 09:00:00 09:00:00 VENESSA [facility] 2020-03-16 2020-05-02 Office [facility] 1.2.840.114 [id number] 14:21:17 12:54:12 Visit [facility] [id number] Surgical [id number] Specialti [id number] es [address] [place] [address] 2020-03-16 2020-05-02 Office [facility] 1.2.840.114 [id number] Univers 14:21:17 12:54:12 Visit [facility] [id number] it y of Surgical [id number] Derrick as Specialti [phone] Me dical es [address] [facility] 2020-03-16 2020-03-16 Outpatient [facility] [id number] Univers 14:45:00 14:45:00 LEIDY [id number] [facility] 2020-03-16 2020-03-16 Outpatient R COLIN [facility] [id number] Univers 14:45:00 14:45:00 LEIDY de souza [facility] 2020-03-16 2020-03-16 Orders Doctor [place] 1.2.840.114 [id number] Univers 00:00:00 00:00:00 Only Unassigned, BREANNA [id number] ity of [place] [facility] [id number] Derrick as [phone] [place] [address] Branch Results This patient has no known results.
[2021-09-12] MEDS ORDERED: MORPHINE 2 MG/ML SYR ONE (16:06)
[2021-09-12] MEDS ORDERED: ONDANSETRON 4 MG/2 ML VIAL ONE (16:06)
[2021-09-12 16:08] LABS: Absolute Lymphocytes (CBC) 1.7 K/uL (0.7-4.9); Hematocrit 29.4 % (36.0-45.0); Lymphocytes % 13.8 % (15.3-44.8); MPV 6.4 fL (7.6-11.3); RBC Red Blood Cell Count 3.18 M/uL (3.86-4.86)
[2021-09-12 16:23] LABS: ALT/SGPT 24 U/L (12-78); AST/SGOT 15 U/L (15-37); Albumin 3.6 g/dL (3.4-5.0); Alkaline Phosphatase 105 U/L (45-117); BUN Blood Urea Nitrogen 30 mg/dL (7-18); Bicarbonate 25 mmol/L (21-32); Bilirubin Direct < 0.1 mg/dL (0-0.2); Bilirubin Total 0.3 mg/dL (0.2-1.0); Glucose Level 158 mg/dL (74-106); Lipase 177 U/L (73-393); Potassium 4.5 mmol/L (3.5-5.1); Protein, Total 8.7 g/dL (6.4-8.2); Sodium Level 134 mmol/L (136-145)
--- NOTE | 2021-09-12 16:46 | RAD REPORT ---
EXAM DESCRIPTION: US - Abdomen Exam Limited - 09/12/2021 4:23 pm CLINICAL HISTORY: RUQ abd pain COMPARISON: Abdomen Pelvis W Contrast dated 01/26/2021 FINDINGS: No gallstones, sludge or other abnormalities within the gallbladder lumen. There is no wal l thickening or pericholecystic fluid. No common duct stone or biliary tree dilatation identified. IMPRESSION: Normal gallbladder and biliary tree ultrasound.
--- NOTE | 2021-09-12 17:16 | RAD REPORT ---
EXAM DESCRIPTION: CT - Abdomen Pelvis Wo Contrast - 09/12/2021 5:02 pm CLINICAL HISTORY: ABD PAIN COMPARISON: Abdomen Pelvis W Contrast dated 01/26/2021; Abdomen Exam Limited dated 09/12/2021 TECHNIQUE: Axial [address] imaging of the abdomen and pelvis was performed without IV contrast. No IV contrast was given because of allergy, abnormal renal function, patient refusal or physician re quest. No oral contrast administered. All CT scans are performed using dose optimization technique as appropriate and may include automated exposure control or mA/KV adjustment according to patient size. FINDINGS: No suspicious findings in the lung bases. The liver, spleen and pancreas show no suspicious findings on non-contrast imaging. Gallbladder and b iliary tree are also without suspicious finding. Gallstones can be occult on CT imaging. The ultrasou nd study the preceded this examination showed no gallstones or gallbladder significant finding. No hydronephrosis or suspicious renal mass. Bilateral adrenal nodularity has not changed. Isodense r enal masses and pyelonephritis cannot be excluded in the absence of IV contrast. The urinary bladder is without significant finding. Uterus is absent. Ovaries are absent or atrophic. No adnexal mass. No dilated bowel loops or bowel wall thickening. Sigmoid diverticulosis is present mild in degree wit h no diverticulitis. No free air, free fluid or inflammatory stranding. Very minimal fat only umbilic al hernia is present significance. No other abdominal wall defects. No bulky lymphadenopathy. No suspicious bony findings. IMPRESSION: Non-contrast enhanced CT abdomen and pelvis imaging show no significant or suspicious fi nding. Full assessment is limited is the absence of IV contrast.
[2021-09-12] MEDS ORDERED: MAGNES/ALUMIN/SIMET 30ML UCUP ONE (17:23)
[2021-09-12] MEDS ORDERED: LIDOCAINE VISCOUS 2% SOLN 15 ML UDC ONE (17:24)
--- NOTE | 2021-09-12 17:48 | EDPHYS ---
Physician Documentation [facility] Name: Sunni Nava Age: 70 yrs Sex: Female : 1950 Arrival Date: 09/12/2021 Time: 15:20 Bed 12 Private MD: ED Physician Ramiro Cotton HPI: 09/12 15:43 This 70 yrs old Female presents to ER via Ambulatory with complaints of rn Epigastric Pain, Back Pain. 15:43 The patient presents with abdominal pain in the right upper quadrant. Onset: The rn symptoms/episode began/occurred this morning. The symptoms radiate to right back. Associated signs and symptoms: Pertinent positives: nausea, Pertinent negatives: blood in stools, fever. Associated signs and symptoms: Pertinent negatives: chest pain, shortness of breath. The symptoms are described as achy. Modifying factors: The symptoms are alleviated by nothing, the symptoms are aggravated by food. Severity of pain: At its worst the pain was moderate in the emergency department the pain has improved. The patient has not experienced similar symptoms in the past. The patient has not recently seen a physician. Historical: - Allergies: 15:28 No Known Drug Allergies; ll1 - PMHx: 15:28 Gastric Reflux; Hypertension; Hypothyroidism; ll1 - PSHx: 15:28 section; ll1 - Immunization history:: Client reports receiving the 2nd dose of the Covid vaccine. - Social history:: Smoking status: Patient denies any tobacco usage or history of. - Family history:: not pertinent. - Hospitalizations: : No recent hospitalization is reported. ROS: 15:43 Constitutional: Negative for fever, chills, and weight loss, Eyes: Negative for injury, rn pain, redness, and discharge, Neck: Negative for injury, pain, and swelling, Cardiovascular: Negative for chest pain, palpitations, and edema, Respiratory: Negative for shortness of breath, cough, wheezing, and pleuritic chest pain, Abdomen/GI: Positive for right upper quadrant abdominal pain and nausea Back: Negative for injury and pain, : Negative for injury, bleeding, discharge, and swelling, MS/Extremity: Negative for injury and deformity, Skin: Negative for injury, rash, and discoloration, Neuro: Negative for headache, weakness, numbness, tingling, and seizure. Exam: 15:43 Constitutional: This is a well developed, well nourished patient who is awake, alert, rn and in no acute distress. Head/Face: Normocephalic, atraumatic. Eyes: Periorbital areas with no swelling, redness, or edema. Cardiovascular: Regular rate and rhythm. No pulse deficits. Respiratory: No increased work of breathing, no retractions or nasal flaring. Abdomen/GI: Soft, mild right upper quadrant tenderness without [place] or peritoneal signs Skin: Warm, dry MS/ Extremity: Pulses equal, no cyanosis. Neuro: Awake and alert, GCS 15 17:46 ECG was reviewed by the Attending Physician. rn Vital Signs: 15:26 BP 143 / 58; Pulse 85; Resp 18; Temp 97.9; Pulse Ox 95% ; Weight 90.72 kg; Height 5 ft. ll1 7 in. (170.18 cm); Pain 10/10; 15:26 Body Mass Index 31.32 (90.72 kg, 170.18 cm) ll1 MDM: 15:33 Patient medically screened. rn 17:46 Differential diagnosis: appendicitis, cholecystitis, Cholelithiasis, diverticulitis, rn gastritis, gastroesophageal reflux disease, non-specific abd pain, pancreatitis, Peptic Ulcer Disease. Data reviewed: vital signs, nurses notes, lab test result(s). 17:46 Counseling: I had a detailed discussion with the patient and/or guardian regarding: the rn historical points, exam findings, and any diagnostic results supporting the discharge/admit diagnosis, lab results, radiology results, the need for outpatient follow up, to return to the emergency department if symptoms worsen or persist or if there are any questions or concerns that arise at home. Response to treatment: the patient's symptoms have markedly improved after treatment, and as a result, I will discharge patient. Special discussion: Based on the patient's Hx, exam, and Dx evaluation, there is no indication for emergent surgery or inpatient Tx. It is understood by the patient/guardian that if the Sx's persist or worsen they need to return immediately for re-evaluation. I discussed with the patient/guardian in detail that at this point there is no indication for admission to the hospital. It is understood, however, that if the symptoms persist or worsen the patient needs to return immediately for re-evaluation. Based on the history and exam findings, there is no indication for further emergent testing or inpatient evaluation. I discussed with the patient/guardian the need to see the product managent intern for further evaluation of the symptoms. ED course: Ultrasound negative for acute findings. CT abdomen pelvis negative for acute findings. Unremarkable blood. EKG no acute findings or ischemia. Patient improved with GI cocktail. Now patient states has had this before and told by doctor was acid reflux and feels similar to her. Will DC home with antacids.. 09/12 15:42 Order name: Basic Metabolic Panel; Complete Time: 16:32 rn 09/12 15:42 Order name: CBC with Diff; Complete Time: 16:32 rn 09/12 15:42 Order name: Hepatic Function; Complete Time: 16:32 rn 09/12 15:42 Order name: Lipase; Complete Time: 16:32 rn 09/12 15:42 Order name: US Abdomen Limited; Complete Time: 16:51 rn 09/12 15:42 Order name: IV Saline Lock; Complete Time: 16:18 rn 09/12 15:42 Order name: Labs collected and sent; Complete Time: 16:18 rn 09/12 16:51 Order name: CT Abd/Pelvis - Without Contrast; Complete Time: 17:19 rn 09/12 17:27 Order name: EKG; Complete Time: 17:28 rn 09/12 17:27 Order name: EKG - Nurse/Tech; Complete Time: 17:40 rn EC:46 Rate is 60 beats/min. Rhythm is regular. QRS [place] is Normal. NV interval is normal. QRS rn interval is normal. QT interval is normal. No Q waves. T waves are Normal. No ST changes noted. Clinical impression: Normal ECG. Interpreted by me. Reviewed by me. Administered Medications: 16:22 Drug: Zofran (Ondansetron) 4 mg Route: IVP; Site: left antecubital; ll3 16:52 Follow up: Response: No adverse reaction ll3 16:26 Drug: morphine 2 mg Route: IVP; Site: left antecubital; ll3 16:53 Follow up: Response: No adverse reaction ll3 17:32 Drug: GI Cocktail without - (Maalox Suspension 30 ml, Lidocaine Liquid 2 % 15 ll3 ml) Route: PO; 17:50 Follow up: Response: No adverse reaction ll3 Disposition Summary: 09/12/21 17:48 Discharge Ordered Location: Home rn Problem: new rn Symptoms: have improved rn Condition: Stable rn Diagnosis - Abdominal pain, unspecified rn - Gastro-esophageal reflux disease without esophagitis rn Followup: rn - With: Campbell Henson MD - When: As needed - Reason: Recheck today's complaints, Re-evaluation by your physician Discharge Instructions: - Discharge Summary Sheet rn - Abdominal Pain, Adult rn - Food Choices for Gastroesophageal Reflux Disease, Adult rn - Gastroesophageal Reflux Disease, Adult rn Forms: - Medication Reconciliation Form rn - Thank You Letter rn - 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 EDMS EDMS
--- NOTE | 2021-09-12 17:48 | ER ---
Nurse's Notes [facility] Name: Sunni Nava Age: 70 yrs Sex: Female : 1950 Arrival Date: 09/12/2021 Time: 15:20 Bed 12 Private MD: Diagnosis: Abdominal pain, unspecified;Gastro-esophageal reflux disease without esophagitis Presentation: 09/12 15:26 Chief complaint: Patient states: RUQ abd pain that radiates to back with nausea for 3 ll1 days. No fever. Coronavirus screen: Vaccine status: Patient reports receiving the 2nd dose of the covid vaccine. Client denies travel out of the [place] in the last 14 days. nausea, Client presents with at least one sign or symptom that may indicate coronavirus-19. Standard/surgical mask placed on the client. Ebola Screen: Patient denies travel to an Ebola-affected area in the 21 days before illness onset. Initial Sepsis Screen: Does the patient meet any 2 criteria? No. Patient's initial sepsis screen is negative. Does the patient have a suspected source of infection? Yes: Acute abdominal pain. Risk Assessment: Do you want to hurt yourself or someone else? Patient reports no desire to harm self or others. Onset of symptoms was September 10, 2021. 15:26 Method Of Arrival: Ambulatory ll1 15:26 Acuity: KIN 3 ll1 Historical: - Allergies: 15:28 No Known Drug Allergies; ll1 - PMHx: 15:28 Gastric Reflux; Hypertension; Hypothyroidism; ll1 - PSHx: 15:28 section; ll1 - Immunization history:: Client reports receiving the 2nd dose of the Covid vaccine. - Social history:: Smoking status: Patient denies any tobacco usage or history of. - Family history:: not pertinent. - Hospitalizations: : No recent hospitalization is reported. Screenin:35 Abuse screen: Denies threats or abuse. Nutritional screening: No deficits noted. ll3 Tuberculosis screening: No symptoms or risk factors identified. 17:50 Fall Risk IV access (20 points). Total Batres Fall Scale indicates No Risk (0-24 pts). ll3 Assessment: 15:35 General: Appears in no apparent distress. uncomfortable, Behavior is calm, cooperative. ll3 Pain: Complains of pain in right upper quadrant Pain radiates to anterior aspect of right lateral abdomen Pain currently is 10 out of 10 on a pain scale. Quality of pain is described as sharp, Pain began This morning Is continuous, Alleviated by Burping Aggravated by States if she does not burp it gets worse. Neuro: Level of Consciousness is awake, alert, obeys commands, Oriented to person, place, time, situation. Cardiovascular: Patient's skin is warm and dry. Respiratory: Respiratory effort is even, unlabored, Respiratory pattern is regular, symmetrical. GI: Abd is soft X 4 quads Abdomen is tender to palpation in right upper quadrant Reports vomiting, Needing to burp. Derm: Skin is pink, warm \T\ dry. 16:30 Reassessment: Patient appears in no apparent distress at this time. No changes from ll3 previously documented assessment. Patient and/or family updated on plan of care and expected duration. Pain level reassessed. Patient is alert, oriented x 3, equal unlabored respirations, skin warm/dry/pink. 17:50 Reassessment: Patient appears in no apparent distress at this time. No changes from ll3 previously documented assessment. Patient and/or family updated on plan of care and expected duration. Pain level reassessed. Patient is alert, oriented x 3, equal unlabored respirations, skin warm/dry/pink. Vital Signs: 15:26 BP 143 / 58; Pulse 85; Resp 18; Temp 97.9; Pulse Ox 95% ; Weight 90.72 kg; Height 5 ft. ll1 7 in. (170.18 cm); Pain 10/10; 15:26 Body Mass Index 31.32 (90.72 kg, 170.18 cm) ll1 ED Course: 15:20 Patient arrived in ED. as 15:28 Triage completed. ll1 15:29 Arm band placed on Patient placed in an exam room, on a stretcher. ll1 15:33 Ramiro Cotton MD is Attending Physician. rn 15:35 Owen Eller RN is Primary Nurse. ll3 15:35 Patient has correct armband on for positive identification. Bed in low position. Call ll3 light in reach. Side rails up X 1. 16:00 Missed attempt(s): 22 gauge in right antecubital area. ll3 16:04 Inserted saline lock: 22 gauge in left antecubital area, using aseptic technique. ll1 16:23 US Abdomen Limited In Process Unspecified. EDMS 17:03 CT Abd/Pelvis - Without Contrast In Process Unspecified. EDMS 17:47 Campbell Henson MD is Referral Physician. rn 17:50 No provider procedures requiring assistance completed. ll3 17:57 IV discontinued, intact, bleeding controlled, No redness/swelling at site. Pressure ll3 dressing applied. Administered Medications: 16:22 Drug: Zofran (Ondansetron) 4 mg Route: IVP; Site: left antecubital; ll3 16:52 Follow up: Response: No adverse reaction ll3 16:26 Drug: morphine 2 mg Route: IVP; Site: left antecubital; ll3 16:53 Follow up: Response: No adverse reaction ll3 17:32 Drug: GI Cocktail without - (Maalox Suspension 30 ml, Lidocaine Liquid 2 % 15 ll3 ml) Route: PO; 17:50 Follow up: Response: No adverse reaction ll3 Outcome: 17:48 Discharge ordered by MD. rn 17:57 Discharged to home ambulatory. ll3 17:57 Condition: stable 17:57 Discharge instructions given to patient, Instructed on discharge instructions, follow up and referral plans. medication usage, Demonstrated understanding of instructions, follow-up care, medications, Prescriptions given X 1. 17:57 Patient left the ED. ll3 Signatures: Dispatcher [employer] Radha Peña Roman, MD MD rn Lewis, Lynsay, RN RN ll1 Owen Eller RN RN ll3
[2021-09-12 18:28] VITALS: BP 143/58; TEMP 97.9; O2SAT 95
--- NOTE | 2021-09-13 07:47 | EKG ---
Test Date: 2021-09-12 Test Time: 17:38:48 [place]: LL MEASUREMENT RESULTS: Intervals: Rate: 60 LA: 160 QRSD: 76 QT: 448 QTc: 448 [place]: P: 39 LA: 160 QRS: 62 T: 47 INTERPRETIVE STATEMENTS: Normal sinus rhythm Normal ECG Compared to ECG 04/02/2008 17:11:36 T-wave abnormality no longer present Electronically Signed On 09-13-21 07:45:40 SET UP [employer] by Amauri Young
== END 2021-09-12 17:57 | disposition home or self-care (01) ==
LOC: ER 15:18
DX: K21.9 Gastro-esophageal reflux disease without esophagitis (principal); I10 Essential (primary) hypertension
CPT/HCPCS: 93005; 85025; 80048; 36415; 80076; 83690; 74176; 76705; 96375; 96374; 99284; J2270; J2405

== ENCOUNTER 2023-02-25 18:57 | Emergency (ER) | payer OTHER ==
--- OUTSIDE RECORDS SUMMARY | 2023-02-25 19:06 | XMS REPORT | Continuity of Care Document ---
:1950 Author Organization [facility] t Address [address] [place] [address] Care Team Providers Name Role Phone RADIOLOGY Attending Clinician Unavailable Bart Horner MD Attending Clinician Leidy Garcia Attending Clinician Only, Adc Test Attending Clinician Unavailable Darren Diaz MD Attending Clinician Doctor Unassigned, [place] Attending Clinician Unavailable Chiqui Conley RN Attending Clinician Unavailable VENESSA CARRERO Attending Clinician Unavailable LEIDY GIRALDO Attending Clinician Unavailable Payers Payer Name Policy Type Policy Number Effective Date Expiration Date Kmi orta [facility] DUAL [id number] 2020 00:00:00 COMP HMO D SNP Problems This patient has no known problems. Allergies, Adverse Reactions, Alerts Allergy Allergy Status Severity Reaction(s) Onset Inactive Treating Comm ents Source Name Type Date Date Clinician NO KNOWN Drug Active Univers ALLERGIE Class [facility] [place] [facility] Social History Social Habit Start Date Stop Date Quantity Comments Source History [facility] University o f Alcohol Std [place] [facility] Drinks [facility] History [facility] University o f Alcohol Binge [place] [facility] Exposure to Not sure University SARS-CoV-2 [place] [facility] (event) [facility] Sex Assigned At [facility] [place] [facility] Alcohol intake 2020-03-16 2020-03-16 Lifetime University of 00:00:00 00:00:00 non-drinker [place] [facility] (finding) Branch History SDDC 2020-03-16 2020-03-16 1 University o f Alcohol Frequency 00:00:00 00:00:00 [facility] edical Branch Tobacco use and 2020-03-16 2020-03-16 Never used Universit y of exposure 00:00:00 00:00:00 [place] [facility] [place] Smoking Status Start Date Stop Date Source Unknown if ever smoked [facility] [place] [facility] Never smoker [facility] Medications Ordered Filled Start Stop Current Ordering Indication Dosage Frequency Signature Comments Components Source Medication Medication Date Date Medication? Clinician (SIG) Name Name GABAPENTIN 2019-09 Yes [id number] TAKE 1 Univers 300 mg 1-17 CAPSULE BY ity of capsule 00:00: MOUTH 3 [place] 00 TIMES A Medical DAY Branch GABAPENTIN 2020- Yes [id number] TAKE 1 Univers 300 mg 1-05 CAPSULE BY ity of capsule 00:00: MOUTH 3 [place] TIMES A Medical DAY Branch GABAPENTIN 2020- Yes [id number] TAKE 1 Univers 300 mg 1-05 CAPSULE BY ity of capsule 00:00: MOUTH 3 [place] TIMES A Medical DAY Branch GABAPENTIN 2020- Yes [id number] TAKE 1 Univers 300 mg 1-05 CAPSULE BY ity of capsule 00:00: MOUTH 3 [place] TIMES A Medical DAY Branch GABAPENTIN 2020- Yes [id number] TAKE 1 Univers 300 mg 1-05 CAPSULE BY ity of capsule 00:00: MOUTH 3 [place] TIMES A Medical DAY Branch GABAPENTIN 2020- Yes [id number] TAKE 1 Univers 300 mg 1-05 CAPSULE BY ity of capsule 00:00: MOUTH 3 [place] TIMES A Medical DAY Branch GABAPENTIN 2020- 2020- No [id number] TAKE 1 Univers 300 mg 1-05 11-17 CAPSULE BY ity of capsule 00:00: 00:00 MOUTH 3 [place] 00 :00 TIMES A Medical DAY Branch gabapentin 2020- No [id number] 300mg Take 1 Univers (NEURONTIN) 7-15 08-15 capsule by i ty of 300 mg 00:00: 04:59 mouth 3 [place] capsule 00 :00 (three) Medical times Branch daily for 30 days. gabapentin 2020- No [id number] 300mg Take 1 Univers (NEURONTIN) 7-15 08-15 capsule by i ty of 300 mg 00:00: 04:59 mouth 3 [place] capsule 00 :00 (three) Medical times Branch daily for 30 days. gabapentin 2020- No [id number] 300mg Take 1 Univers (NEURONTIN) 7-15 08-15 capsule by i ty of 300 mg 00:00: 04:59 mouth 3 [place] capsule 00 :00 (three) Medical times Branch daily for 30 days. citalopram 2020-0 Yes Univers 40 mg 7-07 ity of tablet 00:00: [place] [facility] citalopram 2020-0 Yes Univers 40 mg 7-07 ity of tablet 00:00: [place] [facility] citalopram 2020-0 Yes Univers 40 mg 7-07 ity of tablet 00:00: [place] [facility] citalopram 2020-0 Yes Univers 40 mg 7-07 ity of tablet 00:00: [place] [facility] citalopram 2020-0 Yes Univers 40 mg 7-07 ity of tablet 00:00: [place] [facility] citalopram 2020-0 Yes Univers 40 mg 7-07 ity of tablet 00:00: [place] [facility] citalopram 2020-0 Yes Univers 40 mg 7-07 ity of tablet 00:00: [place] [facility] citalopram 2020-0 Yes Univers 40 mg 7-07 ity of tablet 00:00: [place] [facility] citalopram 2020-0 Yes Univers 40 mg 7-07 ity of tablet 00:00: [place] [facility] losartan 50 2020-0 Yes 50mg Take 50 mg Univers mg tablet 6-05 by mouth ity of 00:00: daily. [place] [facility] losartan 50 2020-0 Yes 50mg Take 50 mg Univers mg tablet 6-05 by mouth ity of 00:00: daily. [place] [facility] losartan 50 2020-0 Yes 50mg Take 50 mg Univers mg tablet 6-05 by mouth ity of 00:00: daily. [place] [facility] losartan 50 2020-0 Yes 50mg Take 50 mg Univers mg tablet 6-05 by mouth ity of 00:00: daily. [place] [facility] losartan 50 2020-0 Yes 50mg Take 50 mg Univers mg tablet 6-05 by mouth ity of 00:00: daily. [place] [facility] losartan 50 2020-0 Yes 50mg Take 50 mg Univers mg tablet 6-05 by mouth ity of 00:00: daily. [address] losartan 50 2020-0 Yes 50mg Take 50 mg Univers mg tablet 6-05 by mouth ity of 00:00: daily. Medical Branch losartan 50 2020-0 Yes 50mg Take 50 mg Univers mg tablet 6-05 by mouth ity of 00:00: daily. Medical Branch losartan 50 2020-0 Yes 50mg Take 50 mg Univers mg tablet 6-05 by mouth ity of 00:00: daily. Medical Branch atorvastati 2020-0 Yes 40mg Take 40 mg Univers n 40 mg 5-17 by mouth ity of tablet 00:00: daily. [facility] atorvastati 2020-0 Yes 40mg Take 40 mg Univers n 40 mg 5-17 by mouth ity of tablet 00:00: daily. [facility] atorvastati 2020-0 Yes 40mg Take 40 mg Univers n 40 mg 5-17 by mouth ity of tablet 00:00: daily. [facility] atorvastati 2020-0 Yes 40mg Take 40 mg Univers n 40 mg 5-17 by mouth ity of tablet 00:00: daily. [facility] atorvastati 2020-0 Yes 40mg Take 40 mg Univers n 40 mg 5-17 by mouth ity of tablet 00:00: daily. [facility] atorvastati 2020-0 Yes 40mg Take 40 mg Univers n 40 mg 5-17 by mouth ity of tablet 00:00: daily. [facility] atorvastati 2020-0 Yes 40mg Take 40 mg Univers n 40 mg 5-17 by mouth ity of tablet 00:00: daily. [facility] atorvastati 2020-0 Yes 40mg Take 40 mg Univers n 40 mg 5-17 by mouth ity of tablet 00:00: daily. [facility] atorvastati 2020-0 Yes 40mg Take 40 mg Univers n 40 mg 5-17 by mouth ity of tablet 00:00: daily. [place] [facility] levothyroxi 2019-0 Yes 50ug Take 50 Uni vers ne 50 mcg 4-30 mcg by ity of tablet 00:00: mouth. [facility] levothyroxi 2020-0 Yes 50ug Take 50 Uni vers ne 50 mcg 4-30 mcg by ity of tablet 00:00: mouth. [place] [facility] levothyroxi 2020-0 Yes 50ug Take 50 Uni vers ne 50 mcg 4-30 mcg by ity of tablet 00:00: mouth. Medical Branch levothyroxi 2020-0 Yes 50ug Take 50 Uni vers ne 50 mcg 4-30 mcg by ity of tablet 00:00: mouth. [place] [facility] levothyroxi 2020-0 Yes 50ug Take 50 Uni vers ne 50 mcg 4-30 mcg by ity of tablet 00:00: mouth. [place] [facility] levothyroxi 2020-0 Yes 50ug Take 50 Uni vers ne 50 mcg 4-30 mcg by ity of tablet 00:00: mouth. [place] [facility] levothyroxi 2020-0 Yes 50ug Take 50 Uni vers ne 50 mcg 4-30 mcg by ity of tablet 00:00: mouth. [place] [facility] levothyroxi 2020-0 Yes 50ug Take 50 Uni vers ne 50 mcg 4-30 mcg by ity of tablet 00:00: mouth. [place] [facility] levothyroxi 2020-0 Yes 50ug Take 50 Uni vers ne 50 mcg 4-30 mcg by ity of tablet 00:00: mouth. [place] [facility] Vital Signs Vital Name Observation Time Observation Value Comments Source Systolic blood 2020-03-16 19:25:00 115 mm[Hg[facility] 2020-03-16 19:25:00 63 mm[Hg] Unive [facility] Heart rate 2020-03-16 19:25:00 74 /min Universi ty [facility] Body height 2020-03-16 19:25:00 161.3 cm Universi ty [facility] Body weight 2020-03-16 19:25:00 92.806 kg Universi ty [facility] BMI 2020-03-16 19:25:00 35.67 kg/m2 Universi ty [facility] Systolic blood 2020-03-16 19:25:00 115 mm[Hg] Univer [facility] Diastolic blood 2020-03-16 19:25:00 63 mm[Hg] Unive [facility] Heart rate 2020-03-16 19:25:00 74 /min Universi ty [facility] Body height 2020-03-16 19:25:00 161.3 cm Universi ty [facility] Body weight 2020-03-16 19:25:00 92.806 kg Universi ty [facility] BMI 2020-03-16 19:25:00 35.67 kg/m2 [facility] Procedures Procedure Date / Time Performed Performing Clinician Shasta e ASSIGNMENT OF BENEFITS 2020-07-14 18:06:32 Doctor Unassigned, No [facility] ASSIGNMENT OF BENEFITS 2020-03-16 19:19:42 Doctor Unassigned, No [facility] Encounters Start End Encounter Admission Attending Care Care Encounter Source Date/Time Date/Time Type Type Clinicians Facility Department ID 2021-02-09 2021-02-09 Outpatient R [facility] [id number] Univers 00:00:00 00:00:00 ity [facility] 2021-02-02 2021-02-02 Outpatient R RADIOLOGY [facility] [id number] Univers 00:00:00 00:00:00 [facility] 2020-07-18 2020-07-18 Bart John [facility] 1.2.840.114 [id number] 00:00:00 00:00:00 (Out) [facility] [id number] [place] [id number] Professio [id number] nal [facility] Office [facility] One 2020-07-18 2020-07-18 Bart John [facility] 1.2.840.114 [id number] Univers 00:00:00 00:00:00 (Out) [facility] [id number] it y of [place] [id number] Derrick as Professio [phone] Wi dical [address] Office [facility] One 2020-07-16 2020-07-16 Hawk Giraldo [facility] [id number] 00:00:00 00:00:00 [facility] [id number] Surgical [id number] Specialti [phone] es 198 [place] 2020-07-16 2020-07-16 Hawk Giraldo [facility] 1.2.840.114 [id number] Univers 00:00:00 00:00:00 [facility] [id number] it y of Surgical [id number] Derrick as Specialti [phone] Wi dical es 198 [facility] 2020-07-14 2020-07-14 Laboratory Only, [facility] [id number] 12:09:44 12:24:44 Only Test [place] [id number] [place] [id number] [place] [id number] 353 2020-07-14 2020-07-14 Laboratory Only, [facility] Test [facility] 1.2.840. 114 [id number] [facility] 12:09:44 12:24:44 Only Darren Diaz [id number] ity of [place] 4.2.7.2.686 [facility] [id number] [facility] 353 Branch 2020-07-14 2020-07-14 Outpatient R [facility] [id number] Univers 12:00:00 12:00:00 ity of [facility] 2020-07-14 2020-07-14 Orders Doctor HAYNES 1.2.840.114 [id number] 00:00:00 00:00:00 Only Unassigned, BREANNA [id number] [place] [facility] 4.2.7.2.686 [id number] 009 2020-07-14 2020-07-14 Letter Chiqui Conley 1.2.840.114 [id number] 00:00:00 00:00:00 (Out) BREANNA [id number] HOSPITAL [id number] [id number] [id number] 2020-07-14 2020-07-14 Orders Doctor HAYNES 1.2.840.114 [id number] Univers 00:00:00 00:00:00 Only Unassigned, BREANNA [id number] ity of [place] [facility] 4.2.7.2.686 Derrick as [phone] [facility] 009 Branch 2020-07-14 2020-07-14 Letter Chiqui Conley 1.2.840.114 [id number] Univers 00:00:00 00:00:00 (Out) BREANNA [id number] it y of HOSPITAL [id number] Derrick as [phone] [facility] 019 Branch 2020-07-06 2020-07-06 Hawk Giraldo [facility] 1.2.840.114 [id number] 00:00:00 00:00:00 [facility] [id number] Surgical [id number] Specialti [id number] es 198 [place] 2020-07-06 2020-07-06 [facility] 1.2.840.114 [id number] Univers 00:00:00 00:00:00 [facility] [id number] it y of Surgical [id number] Derrick as Specialti [phone] Wi dical es 198 [facility] 2020-06-28 2020-06-28 [facility] [id number] Univers 09:00:00 09:00:[facility] 2020-03-16 2020-05-02 [facility] 1.2.840.114 [id number] 14:21:17 12:54:12 Visit [facility] [id number] Surgical [id number] Specialti [phone] es [address] [place] [address] 2020-03-16 2020-05-02 Office [facility] 1.2.840.114 [id number] Univers 14:21:17 12:54:12 Visit [facility] [id number] it y of Surgical [id number] Derrick as Specialti [phone] Wi dical es 198 [facility] 2020-03-16 2020-03-16 [facility] [id number] Univers 14:45:00 14:45:00 [facility] 2020-03-16 2020-03-16 Orders Doctor [place] 1.2.840.114 [id number] Univers 00:00:00 00:00:00 Only Unassigned, BREANNA [id number] ity of [place] [facility] 4.2.7.2.686 Derrick as [phone] [place] [address] Branch Results This patient has no known results.
[2023-02-25 19:53] LABS: Urine Bacteria <20 /HPF (<20); Urine Bilirubin NEGATIVE (Negative); Urine Blood Negative (Negative); Urine Clarity Turbid (Clear); Urine Color Yellow (Yellow); Urine Glucose 4+ (Over) (Negative); Urine Mucus Slight /HPF (None Seen); Urine Protein TRACE (Negative); Urine Urobilinogen Normal (Normal)
[2023-02-25] MEDS ORDERED: CEFTRIAXONE 1000 MG/VIAL ONE (20:29)
[2023-02-25] MEDS ORDERED: LIDOCAINE 1% MPF 2 ML AMPULE ONE (20:30)
--- NOTE | 2023-02-25 20:52 | ER ---
Nurse's Notes [facility] Name: Sunni Nava Age: 72 yrs Sex: Female : 1950 Arrival Date: 02/25/2023 Time: 18:57 Bed 12 Private MD: Diagnosis: UTI/ Urinary tract infection, site not specified Presentation: 02/25 19:29 Chief complaint: Patient states: last night i was having some back pain and a fever and kd3 today my fever has been gone but i have had some burning with urination and some lower abdominal pains. I think i have a UTI. Coronavirus screen: Vaccine status: Patient reports receiving the 2nd dose of the covid vaccine. Ebola Screen: No symptoms or risks identified at this time. Initial Sepsis Screen: Does the patient meet any 2 criteria? No. Patient's initial sepsis screen is negative. Does the patient have a suspected source of infection? No. Patient's initial sepsis screen is negative. Risk Assessment: Do you want to hurt yourself or someone else? Patient reports no desire to harm self or others. Onset of symptoms was February 24, 2023. 19:29 Method Of Arrival: Ambulatory kd3 19:29 Acuity: KIN 3 kd3 Triage Assessment: 19:31 General: Appears in no apparent distress. Behavior is calm, cooperative. Pain: kd3 Complains of pain in low back area, left low back and suprapubic area. Musculoskeletal: Circulation, motion, and sensation intact. Historical: - Allergies: 19:31 No Known Allergies; kd3 - PMHx: 19:31 Gastric Reflux; Hypertension; Hypothyroidism; kd3 - PSHx: 19:31 section; kd3 - Immunization history:: Adult Immunizations up to date. - Social history:: Smoking status: Patient denies any tobacco usage or history of. - Family history:: not pertinent. - Hospitalizations: : No recent hospitalization is reported. Screenin:45 [facility] ED Fall Risk Assessment (Adult) History of falling in the last 3 months, cm10 including since admission No falls in past 3 months (0 pts) Confusion or Disorientation No (0 pts) Intoxicated or Sedated No (0 pts) Impaired Gait No (0 pts) Mobility Assist Device Used No (0 pt) Altered Elimination No (0 pt) Score/Fall Risk Level 0 - 2 = Low Risk Oriented to surroundings, Maintained a safe environment. Abuse screen: Denies threats or abuse. Denies injuries from another. Nutritional screening: No deficits noted. Tuberculosis screening: No symptoms or risk factors identified. Assessment: 19:45 Pain: Complains of pain in back and left low back and low back area and abdomen and cm10 suprapubic area Pain began 1 day ago. Neuro: No deficits noted. Level of Consciousness is awake, alert, Oriented to person, place, time, situation. Cardiovascular: No deficits noted. Capillary refill < 3 seconds. Respiratory: No deficits noted. Airway is patent Respiratory effort is even, unlabored, Respiratory pattern is regular, symmetrical. Vital Signs: 19:29 BP 155 / 68; Pulse 66; Resp 15; Temp 98.9(O); Pulse Ox 95% on R/A; Weight 95.25 kg; kd3 Height 5 ft. 7 in. ; 20:59 BP 151 / 87; Pulse 64; Resp 16; Pulse Ox 99% on R/A; Pain 10/10; cm10 19:29 Body Mass Index 32.89 (95.25 kg, 170.18 cm) kd3 20:59 Pain Scale: Adult cm10 ED Course: 18:58 Patient arrived in ED. rg4 19:26 Lorie Dasilva, RN is Primary Nurse. cm10 19:30 Triage completed. kd3 19:31 Arm band placed on right wrist. kd3 19:43 Ramiro Cotton MD is Attending Physician. rn 19:43 Urinalysis W/Microscopic Sent. cm10 19:46 Patient has correct armband on for positive identification. Bed in low position. Call cm10 light in reach. Cardiac monitoring not applicable on this patient. 20:59 No provider procedures requiring assistance completed. Patient did not have IV access cm10 during this emergency room visit. Administered Medications: 20:28 Drug: Rocephin (cefTRIAXone) IM 1 grams Route: IM; Site: right gluteus; cm10 Medication: 20:59 VIS not applicable for this client. cm10 Outcome: 20:51 Discharge ordered by . rn 20:59 Discharged to home ambulatory, with family. cm10 20:59 Condition: good 20:59 Discharge instructions given to patient, Instructed on discharge instructions, follow up and referral plans. medication usage, Demonstrated understanding of instructions, follow-up care, medications, Prescriptions given X 2. 21:00 Patient left the ED. cm10 Signatures: Ramiro Cotton MD MD rn Opal Nava4 Isabel Wade RN RN kd3 Lorie Dasilva RN RN cm10 Corrections: (The following items were deleted from the chart) 19:31 19:29 Onset of symptoms was February 25, 2023 ad duong
--- NOTE | 2023-02-25 20:52 | EDPHYS ---
Physician Documentation [facility] Name: Sunni Nava Age: 72 yrs Sex: Female : 1950 Arrival Date: 02/25/2023 Time: 18:57 Bed 12 Private MD: ED Physician Ramiro Cotton HPI: 02/25 20:06 This 72 yrs old Female presents to ER via Ambulatory with complaints of Pain rn With Urination, Low Back Pain. 20:07 The patient presents with urinary symptoms, dysuria, frequency. Onset: The rn symptoms/episode began/occurred yesterday. Modifying factors: The symptoms are alleviated by nothing, the symptoms are aggravated by urinating. Associated signs and symptoms: Pertinent positives: dysuria, Pertinent negatives: fever, vaginal bleeding, vaginal discharge. Severity of symptoms: At their worst the symptoms were mild, in the emergency department the symptoms are unchanged. The patient has experienced similar episodes in the past. The patient has not recently seen a physician. Pt feels like has "another UTI". NO fever or chills. Doesn't feel bad. + dysuria and increased frequency with low back pain.. Historical: - Allergies: 19:31 No Known Allergies; kd3 - PMHx: 19:31 Gastric Reflux; Hypertension; Hypothyroidism; kd3 - PSHx: 19:31 section; kd3 - Immunization history:: Adult Immunizations up to date. - Social history:: Smoking status: Patient denies any tobacco usage or history of. - Family history:: not pertinent. - Hospitalizations: : No recent hospitalization is reported. ROS: 20:07 Constitutional: Negative for fever, chills, and weight loss, Eyes: Negative for injury, rn pain, redness, and discharge, Cardiovascular: Negative for chest pain, palpitations, and edema, Respiratory: Negative for shortness of breath, cough, wheezing, and pleuritic chest pain, Abdomen/GI: Negative for abdominal pain, nausea, vomiting, diarrhea, and constipation, Back: + low back pain : + dysuria MS/Extremity: Negative for injury and deformity, Skin: Negative for injury, rash, and discoloration, Neuro: Negative for headache, numbness, tingling, and seizure. Exam: 20:07 Constitutional: This is a well developed, well nourished patient who is awake, alert, rn and in no acute distress. Head/Face: Normocephalic, atraumatic. Cardiovascular: Regular rate and rhythm. No pulse deficits. Respiratory: No increased work of breathing, no retractions or nasal flaring. Abdomen/GI: Soft, non-tender Back: No spinal tenderness. No costovertebral tenderness. Full range of motion. Skin: Warm, dry MS/ Extremity: Pulses equal, no cyanosis. Neuro: Awake and alert, GCS 15 Vital Signs: 19:29 BP 155 / 68; Pulse 66; Resp 15; Temp 98.9(O); Pulse Ox 95% on R/A; Weight 95.25 kg; kd3 Height 5 ft. 7 in. ; 20:59 BP 151 / 87; Pulse 64; Resp 16; Pulse Ox 99% on R/A; Pain 10/10; cm10 19:29 Body Mass Index 32.89 (95.25 kg, 170.18 cm) kd3 20:59 Pain Scale: Adult cm10 MDM: 19:43 Patient medically screened. rn 20:07 Differential diagnosis: urinary tract infection. Data reviewed: vital signs, nurses rn notes, lab test result(s), and as a result, I will discharge patient. Counseling: I had a detailed discussion with the patient and/or guardian regarding: the historical points, exam findings, and any diagnostic results supporting the discharge/admit diagnosis, lab results, the need for outpatient follow up, to return to the emergency department if symptoms worsen or persist or if there are any questions or concerns that arise at home. Special discussion: I discussed with the patient/guardian in detail that at this point there is no indication for admission to the hospital. It is understood, however, that if the symptoms persist or worsen the patient needs to return immediately for re-evaluation. 02/25 19:33 Order name: Urinalysis W/Microscopic; Complete Time: 20:06 kd3 Administered Medications: 20:28 Drug: Rocephin (cefTRIAXone) IM 1 grams Route: IM; Site: right gluteus; cm10 Disposition Summary: 02/25/23 20:51 Discharge Ordered Location: Home rn Problem: new rn Symptoms: have improved rn Condition: Stable rn Diagnosis - UTI/ Urinary tract infection, site not specified rn Followup: rn - With: Private Physician - When: As needed - Reason: Recheck today's complaints, Re-evaluation by your physician Discharge Instructions: - Discharge Summary Sheet rn - Dysuria rn - Urinary Tract Infection, Adult rn Forms: - Medication Reconciliation Form rn - Thank You Letter rn - Antibiotic pharmacy intern - Prescription Opioid Use rn - [email or web address] rn Prescriptions: - Pyridium 200 mg Oral Tablet - take 1 tablet by ORAL route every 8 hours for 3 days; 9 tablet; Refills: 0, rn Product Selection Permitted - Cipro 500 mg Oral Tablet - take 1 tablet by ORAL route every 12 hours for 7 days; 14 tablet; Refills: 0, rn Product Selection Permitted Signatures: Dispatcher [employer] EDRamiro Thibodeaux MD MD rn Doucette, Kyli RN RN kd3 Lorie Dasilva RN RN cm10
[2023-02-25 21:04] VITALS: TEMP 98.9
[2023-02-25 21:06] VITALS: BP 151/87; O2SAT 99
== END 2023-02-25 21:00 | disposition home or self-care (01) ==
LOC: ER 18:57
DX: N39.0 Urinary tract infection, site not specified (principal)
CPT/HCPCS: 81001; J0696

== ENCOUNTER 2023-05-20 12:20 | Emergency (ER) | payer OTHER ==
--- OUTSIDE RECORDS SUMMARY | 2023-05-20 12:23 | XMS REPORT | Continuity of Care Document ---
:1950 Author Organization [facility] t Address [address] [facility] [address] [place] [address] Care Team Providers Name Role Phone RADIOLOGY Attending Clinician Unavailable Bart Horner MD Attending Clinician Leidy Garcia Attending Clinician Only, Adc Test Attending Clinician Unavailable Darren Diaz MD Attending Clinician Doctor Unassigned, [place] Attending Clinician Unavailable Chiqui Conley RN Attending Clinician Unavailable VENESSA CARRERO Attending Clinician Unavailable LEIDY GIRALDO Attending Clinician Unavailable Payers Payer Name Policy Type Policy Number Effective Date Expiration Date Kim orta [facility] DUAL [id number] 2020 00:00:00 COMP HMO D SNP Problems This patient has no known problems. Allergies, Adverse Reactions, Alerts Allergy Allergy Status Severity Reaction(s) Onset Inactive Treating Comm ents Source Name Type Date Date Clinician NO KNOWN Drug Active Univers ALLERGIE Class ity of [facility] Social History Social Habit Start Date Stop Date Quantity Comments Source History [facility] University o f Alcohol Std [facility] Drinks [facility] History [facility] University o f Alcohol Binge [place] [facility] Exposure to Not sure University SARS-CoV-2 [facility] (event) [facility] Sex Assigned At [facility] Alcohol intake 2020-03-16 2020-03-16 Lifetime University of 00:00:00 00:00:00 non-drinker [facility] (finding) [facility] History SDPA 2020-03-16 2020-03-16 1 University o f Alcohol Frequency 00:00:00 00:00:00 [facility] edical Branch Tobacco use and 2020-03-16 2020-03-16 Never used Universit y of exposure 00:00:00 00:00:00 [facility] [place] Smoking Status Start Date Stop Date Source Unknown if ever smoked [facility] Never smoker [facility] Medications Ordered Filled Start Stop Current Ordering Indication Dosage Frequency Signature Comments Components Source Medication Medication Date Date Medication? Clinician (SIG) Name Name GABAPENTIN 2019-09 Yes [id number] TAKE 1 Univers 300 mg 1-17 CAPSULE BY ity of capsule 00:00: MOUTH 3 [place] 00 TIMES A Medical DAY Branch GABAPENTIN 2020- Yes [id number] TAKE 1 Univers 300 mg 1-05 CAPSULE BY ity of capsule 00:00: MOUTH 3 [place] TIMES A Medical DAY Branch GABAPENTIN 2020- Yes [id number] TAKE 1 Univers 300 mg 1-05 CAPSULE BY ity of capsule 00:00: MOUTH 3 [place] TIMES A Medical DAY Branch GABAPENTIN 2020- Yes [id number] TAKE 1 Univers 300 mg 1-05 CAPSULE BY ity of capsule 00:00: MOUTH 3 [place] TIMES A Medical DAY Branch GABAPENTIN 2020- Yes [id number] TAKE 1 Univers 300 mg 1-05 CAPSULE BY ity of capsule 00:00: MOUTH 3 [place] TIMES A Medical DAY Branch GABAPENTIN 2020- Yes [id number] TAKE 1 Univers 300 mg 1-05 CAPSULE BY ity of capsule 00:00: MOUTH 3 [place] TIMES A Medical DAY Branch GABAPENTIN 2020- 2020- No [id number] TAKE 1 Univers 300 mg 1-05 11-17 CAPSULE BY ity of capsule 00:00: 00:00 MOUTH 3 [place] 00 :00 TIMES A Medical DAY Branch gabapentin 2020- No [id number] 300mg Take 1 Univers (NEURONTIN) 7-15 08-15 capsule by i ty of 300 mg 00:00: 04:59 mouth 3 [place] capsule 00 :00 (three) Medical times Branch daily for 30 days. gabapentin 2020- No [id number] 300mg Take 1 Univers (NEURONTIN) 7-15 08-15 capsule by i ty of 300 mg 00:00: 04:59 mouth 3 [place] capsule 00 :00 (three) Medical times Branch daily for 30 days. gabapentin 2020- No [id number] 300mg Take 1 Univers (NEURONTIN) 7-15 08-15 capsule by i ty of 300 mg 00:00: 04:59 mouth 3 [place] capsule 00 :00 (three) Medical times Branch daily for 30 days. citalopram 2020-0 Yes Univers 40 mg 7-07 ity of tablet 00:00: [facility] citalopram 2020-0 Yes Univers 40 mg 7-07 ity of tablet 00:00: [facility] citalopram 2020-0 Yes Univers 40 mg 7-07 ity of tablet 00:00: [facility] citalopram 2020-0 Yes Univers 40 mg 7-07 ity of tablet 00:00: [facility] citalopram 2020-0 Yes Univers 40 mg 7-07 ity of tablet 00:00: [facility] citalopram 2020-0 Yes Univers 40 mg 7-07 ity of tablet 00:00: [facility] citalopram 2020-0 Yes Univers 40 mg 7-07 ity of tablet 00:00: [facility] citalopram 2020-0 Yes Univers 40 mg 7-07 ity of tablet 00:00: [facility] citalopram 2020-0 Yes Univers 40 mg 7-07 ity of tablet 00:00: [facility] losartan 50 2020-0 Yes 50mg Take 50 mg Univers mg tablet 6-05 by mouth ity of 00:00: daily. [facility] losartan 50 2020-0 Yes 50mg Take 50 mg Univers mg tablet 6-05 by mouth ity of 00:00: daily. [place] [facility] losartan 50 2020-0 Yes 50mg Take 50 mg Univers mg tablet 6-05 by mouth ity of 00:00: daily. [place] [facility] losartan 50 2020-0 Yes 50mg Take 50 mg Univers mg tablet 6-05 by mouth ity of 00:00: daily. [place] [facility] losartan 50 2020-0 Yes 50mg Take 50 mg Univers mg tablet 6-05 by mouth ity of 00:00: daily. [place] [facility] losartan 50 2020-0 Yes 50mg Take 50 mg Univers mg tablet 6-05 by mouth ity of 00:00: daily. [address] losartan 50 2020-0 Yes 50mg Take [...] mouth ity of tablet 00:00: [facility]. [facility] atorvastati 2020-0 Yes 40mg Take 40 mg Univers n 40 mg 5-17 by mouth ity of tablet 00:00: daily. [facility] atorvastati 2020-0 Yes 40mg Take 40 mg Univers n 40 mg 5-17 by mouth ity of tablet 00:00: daily. [facility] atorvastati 2020-0 Yes 40mg Take 40 mg Univers n 40 mg 5-17 by mouth ity of tablet 00:00: daily. [facility] atorvastati 2020-0 Yes 40mg Take 40 mg Univers n 40 mg 5-17 by mouth ity of tablet 00:00: daily. [facility] atorvastati 2020-0 Yes 40mg Take 40 mg Univers n 40 mg 5-17 by mouth ity of tablet 00:00: daily. [facility] atorvastati 2020-0 Yes 40mg Take 40 mg Univers n 40 mg 5-17 by mouth ity of tablet 00:00: daily. [facility] atorvastati 2020-0 Yes 40mg Take 40 mg Univers n 40 mg 5-17 by mouth ity of tablet 00:00: daily. [facility] atorvastati 2020-0 Yes 40mg Take 40 mg Univers n 40 mg 5-17 by mouth ity of tablet 00:00: daily. [facility] levothyroxi 2019-0 Yes 50ug Take 50 Uni vers ne 50 mcg 4-30 mcg by ity of tablet 00:00: mouth. [facility] levothyroxi 2020-0 Yes 50ug Take 50 Uni vers ne 50 mcg 4-30 mcg by ity of tablet 00:00: mouth. [place] [facility] levothyroxi 2020-0 Yes 50ug Take 50 Uni vers ne 50 mcg 4-30 mcg by ity of tablet 00:00: mouth. Medical Branch levothyroxi 2020-0 Yes 50ug Take 50 Uni vers ne 50 mcg 4-30 mcg by ity of tablet 00:00: mouth. [facility] levothyroxi 2020-0 Yes 50ug Take 50 Uni vers ne 50 mcg 4-30 mcg by ity of tablet 00:00: mouth. [facility] levothyroxi 2020-0 Yes 50ug Take 50 Uni vers ne 50 mcg 4-30 mcg by ity of tablet 00:00: mouth. [facility] levothyroxi 2020-0 Yes 50ug Take 50 Uni vers ne 50 mcg 4-30 mcg by ity of tablet 00:00: mouth. [facility] levothyroxi 2020-0 Yes 50ug Take 50 Uni vers ne 50 mcg 4-30 mcg by ity of tablet 00:00: mouth. [facility] levothyroxi 2020-0 Yes 50ug Take 50 Uni vers ne 50 mcg 4-30 mcg by ity of tablet 00:00: mouth. [place] [facility] Vital Signs Vital Name Observation Time Observation Value Comments Source Systolic blood 2020-03-16 19:25:00 115 mm[Hg] [facility] 2020-03-16 19:25:00 63 mm[Hg] Unive [facility] [place] Heart rate 2020-03-16 19:25:00 74 /min Universi ty [facility] Body height 2020-03-16 19:25:00 161.3 cm Universi ty [facility] Body weight 2020-03-16 19:25:00 92.806 kg Universi ty [facility] BMI 2020-03-16 19:25:00 35.67 kg/m2 Universi ty [facility] Systolic blood 2020-03-16 19:25:00 115 mm[Hg] Univer [facility] Diastolic blood 2020-03-16 19:25:00 63 mm[Hg] Unive [facility] [place] Heart rate 2020-03-16 19:25:00 74 /min Universi ty [facility] Body height 2020-03-16 19:25:00 161.3 cm Universi ty [facility] Body weight 2020-03-16 19:25:00 92.806 kg Universi ty [facility] BMI 2020-03-16 19:25:00 35.67 kg/m2 [facility] Procedures Procedure Date / Time Performed Performing Clinician Shasta e ASSIGNMENT OF BENEFITS 2020-07-14 18:06:32 Doctor Unassigned, No [facility] ASSIGNMENT OF BENEFITS 2020-03-16 19:19:42 Doctor Unassigned, No [facility] Encounters Start End Encounter Admission Attending Care Care Encounter Source Date/Time Date/Time Type Type Clinicians Facility Department ID 2021-02-09 2021-02-09 Outpatient R [facility] [id number] Univers 00:00:00 00:00:00 ity [facility] 2021-02-02 2021-02-02 Outpatient R RADIOLOGY [facility] [id number] Univers 00:00:00 00:00:00 [facility] 2020-07-18 2020-07-18 Bart John [facility] 1.2.840.114 [id number] 00:00:00 00:00:00 (Out) [facility] [id number] [place] [id number] Professio [phone] nal [facility] Office [facility] 2020-07-18 2020-07-18 Bart John [facility] 1.2.840.114 [id number] Univers 00:00:00 00:00:00 (Out) [facility] [id number] it y of [place] [id number] Derrick as Professio [phone] Ia dical [address] Office [facility] 2020-07-16 2020-07-16 Hawk Giraldo [facility] 1.2.840.114 [id number] 00:00:00 00:00:00 [facility] [id number] Surgical [id number] Specialti [phone] es 198 [place] 2020-07-16 2020-07-16 Hawk Giraldo [facility] 1.2.840.114 [id number] Univers 00:00:00 00:00:00 [facility] [id number] it y of Surgical [id number] Derrick as Specialti [phone] Ia dical es 198 [facility] 2020-07-14 2020-07-14 Laboratory Only, [facility] 1.2.840.114 [id number] 12:09:44 12:24:44 Only Test [place] [id number] [place] [id number] [place] [id number] 353 2020-07-14 2020-07-14 Laboratory Only, [facility] Test [facility] 1.2.840. 114 [id number] [facility] 12:09:44 12:24:44 Only Darren Diaz [id number] ity of [place] 4.2.7.2.686 [facility] [id number] [facility] 353 Branch 2020-07-14 2020-07-14 Outpatient R [facility] [id number] Univers 12:00:00 12:00:00 ity of [facility] 2020-07-14 2020-07-14 Orders Doctor HAYNES 1.2.840.114 [id number] 00:00:00 00:00:00 Only Unassigned, BREANNA [id number] [place] [facility] 4.2.7.2.686 [id number] 009 2020-07-14 2020-07-14 Letter Chiqui Conley 1.2.840.114 [id number] 00:00:00 00:00:00 (Out) [facility] [id number] HOSPITAL 4.2.7.2.686 [id number] 2020-07-14 2020-07-14 Orders Doctor HAYNES 1.2.840.114 [id number] Univers 00:00:00 00:00:00 Only Unassigned, BREANNA [id number] ity of [place] [facility] 4.2.7.2.686 Derrick as [phone] [facility] 009 Branch 2020-07-14 2020-07-14 Letter Chiqui Conley 1.2.840.114 [id number] Univers 00:00:00 00:00:00 (Out) BREANNA [id number] it y of HOSPITAL 4.2.7.2.686 Derrick as [phone] [facility] 019 Branch 2020-07-06 2020-07-06 Hawk Giraldo [facility] 1.2.840.114 [id number] 00:00:00 00:00:00 [facility] [id number] Surgical [id number] Specialti [phone] es 198 [place] 2020-07-06 2020-07-06 [facility] 1.2.840.114 [id number] Univers 00:00:00 00:00:00 [facility] [id number] it y of Surgical 4.2.7.2.686 Derrick as Specialti [phone] Ia dical es 198 [facility] 2020-06-28 2020-06-28 Outpatient [facility] [id number] Univers 09:00:00 [facility]00[facility]03[facility] 2020-05-02 [facility] 1.2.840.114 [id number] 14:21:17 12:54:12 Visit [facility] [id number] Surgical [id number] Specialti [phone] es [address] [place] [address] 2020-03-16 2020-05-02 [facility] 1.2.840.114 [id number] Univers 14:21:17 12:54:12 Visit [facility] [id number] it y of Surgical 4.2.7.2.686 Derrick as Specialti [phone] Ia dical es 198 [facility] 2020-03-16 2020-03-16 [facility] [id number] Univers 14:45:00 14:45:00 [facility] 2020-03-16 2020-03-16 Orders Doctor [place] 1.2.840.114 [id number] Univers 00:00:00 00:00:00 Only Unassigned, BREANNA [id number] ity of [place] [facility] 4.2.7.2.686 Derrick as [phone] [place] [address] Branch Results This patient has no known results.
[2023-05-20] MEDS ORDERED: ACETAMINOPHEN 500 MG TAB ONE (14:06)
[2023-05-20 14:14] LABS: Specific Gravity 1.019 (1.005-1.030); Urine Bilirubin NEGATIVE (Negative); Urine Blood Negative (Negative); Urine Clarity Clear (Clear); Urine Color Light-Yellow (Yellow); Urine Glucose 4+ (Over) (Negative); Urine Protein NEGATIVE (Negative); Urine Urobilinogen Normal (Normal); Urine pH 6.5 (5.0-7.0)
--- NOTE | 2023-05-20 14:18 | RAD REPORT ---
EXAM DESCRIPTION: CT - Abdomen Pelvis Wo Contrast - 05/20/2023 1:38 pm CLINICAL HISTORY: right flank pain COMPARISON: Abdomen Pelvis Wo Contrast dated 09/12/2021; Abdomen Pelvis W Contrast dated ; Abdomen Pelvis W Contrast dated 05/29/2020; Abdomen Pelvis W Contrast dated 05/19/2020 TECHNIQUE: Thin cut axial CT imaging of the abdomen and pelvis was performed without IV contrast. Mu ltiplanar reformats were generated and reviewed. All CT scans are performed using dose optimization technique as appropriate and may include automated exposure control or mA/KV adjustment according to patient size. FINDINGS: No suspicious findings in the lung bases. The liver, spleen, and pancreas show no suspicious findings. Gallbladder and biliary tree are also wi thout suspicious finding. Symmetric renal contour, without suspicious parenchymal findings within limits of noncontrast techniq ue. No evidence of radiopaque calculi or hydroureteronephrosis. No dilated bowel loops or bowel wall thickening. Colonic diverticulosis without evidence of acute div erticulitis. No free air, free fluid or inflammatory stranding. No hernia, mass or bulky lymphadenopa thy. The urinary bladder is decompressed limiting evaluation. No suspicious bony findings. IMPRESSION: No acute intra-abdominal process. Colonic diverticulosis.
--- NOTE | 2023-05-20 14:39 | EDPHYS ---
Physician Documentation [facility] Name: Sunni Nava Age: 72 yrs Sex: Female : 1950 Arrival Date: 05/20/2023 Time: 12:20 Bed 20 Private MD: Patricia Ni ED Physician Harmeet Stephen HPI: 05/20 14:42 This 72 yrs old Female presents to ER via Ambulatory with complaints of Back cp3 Pain, Urinary Problem. 14:42 Patient is a 72-year-old female who presents to the ED secondary to dysuria, pain with cp3 urination rated as 3 out of 10 pain and burning sensation with urination associated with right-sided flank pain that radiates to the right groin that started roughly 2 days ago. No fever, chills, nausea, vomiting, diarrhea. Historical: - Allergies: 12:43 No Known Allergies; me1 - Home Meds: 14:48 atorvastatin 40 mg Oral tab 1 tab once daily [Active]; citalopram 40 mg tab 1 tab once eh3 daily [Active]; levothyroxine 50 mcg tab 1 tab once daily [Active]; lisinopril 30 mg Oral tab 1 tab once daily [Active]; losartan 50 mg Oral tab 1 tab once daily [Active]; simvastatin 40 mg Oral tab 1 tab once daily [Active]; - PMHx: 12:43 Gastric Reflux; Hypertension; Hypothyroidism; me1 - PSHx: 12:43 section; me1 - Immunization history:: Adult Immunizations up to date. - Social history:: Smoking status: Patient denies any tobacco usage or history of. - Family history:: not pertinent. ROS: 14:42 Constitutional: Negative for fever, chills, and weight loss, Eyes: Negative for injury, cp3 pain, redness, and discharge, ENT: Negative for injury, pain, and discharge, Neck: Negative for injury, pain, and swelling, Cardiovascular: Negative for chest pain, palpitations, and edema, Respiratory: Negative for shortness of breath, cough, wheezing, and pleuritic chest pain, Abdomen/GI: Negative for abdominal pain, nausea, vomiting, diarrhea, and constipation, MS/Extremity: Negative for injury and deformity, Skin: Negative for injury, rash, and discoloration, Neuro: Negative for headache, weakness, numbness, tingling, and seizure, 14:42 : Positive for urinary symptoms, flank pain, small amounts, Exam: 14:42 Constitutional: This is a well developed, well nourished patient who is awake, alert, cp3 and in no acute distress. Head/Face: Normocephalic, atraumatic. Eyes: Pupils equal round and reactive to light, extra-ocular motions intact. Lids and lashes normal. Conjunctiva and sclera are non-icteric and not injected. Cornea within normal limits. Periorbital areas with no swelling, redness, or edema. ENT: Nares patent. No nasal discharge, no septal abnormalities noted. Tympanic membranes are normal and external auditory canals are clear. Oropharynx with no redness, swelling, or masses, exudates, or evidence of obstruction, uvula midline. Mucous membranes moist. Neck: Trachea midline, no thyromegaly or masses palpated, and no cervical lymphadenopathy. Supple, full range of motion without nuchal rigidity, or vertebral point tenderness. No Meningismus. Chest/axilla: Normal chest wall appearance and motion. Nontender with no deformity. No lesions are appreciated. Cardiovascular: Regular rate and rhythm with a normal S1 and S2. No gallops, murmurs, or rubs. Normal PMI, no JVD. No pulse deficits. Respiratory: Lungs have equal breath sounds bilaterally, clear to auscultation and percussion. No rales, rhonchi or wheezes noted. No increased work of breathing, no retractions or nasal flaring. Abdomen/GI: Soft, non-tender, with normal bowel sounds. No distension or tympany. No guarding or rebound. No evidence of tenderness throughout. Back: No spinal tenderness. No costovertebral tenderness. Full range of motion. Skin: Warm, dry with normal turgor. Normal color with no rashes, no lesions, and no evidence of cellulitis. MS/ Extremity: Pulses equal, no cyanosis. Neurovascular intact. Full, normal range of motion. Neuro: Awake and alert, GCS 15, oriented to person, place, time, and situation. Cranial nerves II-XII grossly intact. Motor strength 5/5 in all extremities. Sensory grossly intact. Cerebellar exam normal. Normal gait. Psych: Awake, alert, with orientation to person, place and time. Behavior, mood, and affect are within normal limits. Vital Signs: 12:41 BP 129 / 66; Pulse 58; Resp 17; Temp 98.3; Pulse Ox 97% on R/A; Weight 97.52 kg; Height me1 5 ft. 1 in. ; Pain 9/10; 12:41 Body Mass Index 40.62 (97.52 kg, 154.94 cm) me1 12:41 Pain Scale: Adult me1 MDM: 12:47 Patient medically screened. cp3 14:42 Differential diagnosis: Hydronephrosis Ureterolithiasis uti, pyelonephritis. cp3 14:42 Data reviewed: vital signs, nurses notes. Consideration of Admission/Observation cp3 Escalation of care including admission/observation considered. patient with resolution in symptoms. no acute indication for inpatient hospitalization. I considered the following discharge prescriptions or medication management in the emergency department Medications were administered in the Emergency Department. See MAR. Response to treatment: the patient's symptoms have markedly improved after treatment. 05/20 13:26 Order name: Urinalysis w/ reflexes; Complete Time: 14:28 3 05/20 14:29 Interpretation: Normal except: UCLR Light-Yellow; UCLA Clear; Urine SG 1.019; UGLUC 4+ cp3 (Over); UBILI NEGATIVE; UKET NEGATIVE; UBLD Negative; UPH 6.5; UPROT NEGATIVE; UUROB Normal; UNIT NEGATIVE; UESTR Negative. 05/20 13:27 Order name: CT Abd/Pelvis - Without Contrast; Complete Time: 14:28 cp3 05/20 14:29 Interpretation: Per Radiologist's finding(s): [place] [id number] RADIOLOGY SERVICES REPORT Name: SUNNI NAVA Acct Number: [id number] :1950 Age:72 Sex:F Ord Phys: Harmeet Stephen MD Unit Number: [id number] [facility]: Patricia Ni [facility] Status: REG ER Exam Date: 05/20/23 EXAM DESCRIPTION: CT - Abdomen Pelvis Wo Contrast - 05/20/2023 1:38 pm CLINICAL HISTORY: right flank pain COMPARISON: Abdomen Pelvis Wo Contrast dated 09/12/2021; Abdomen Pelvis W Contrast dated 01/26/2021; Abdomen Pelvis W Contrast dated 05/29/2020; Abdomen Pelvis W Contrast dated 05/19/2020 TECHNIQUE: Thin cut axial CT imaging of the abdomen and pelvis was performed without IV contrast. Multiplanar reformats were generated and reviewed. All CT scans are performed using dose optimization technique as appropriate and may include automated exposure control or mA/KV adjustment according to patient size. FINDINGS: No suspicious findings in the lung bases. The liver, spleen, and pancreas show no suspicious findings. Gallbladder and biliary tree are also without suspicious finding. Symmetric renal contour, without suspicious parenchymal findings within limits of noncontrast technique. No evidence of radiopaque calculi or hydroureteronephrosis. No dilated bowel loops or bowel wall thickening. Colonic diverticulosis without evidence of acute diverticulitis. No free air, free fluid or inflammatory stranding. No hernia, mass or bulky lymphadenopathy. The urinary bladder is decompressed limiting evaluation. No suspicious bony findings. IMPRESSION: No acute intra-abdominal process. Colonic diverticulosis. Signed By: Ike Moseley Signed AT: 05/20/23 1418 . Administered Medications: 13:57 Drug: Acetaminophen PO 1000 mg PO once Route: PO; jl7 14:51 Follow up: Response: No adverse reaction eh3 Disposition Summary: 05/20/23 14:39 Discharge Ordered Notes: Location: Home cp3 Condition: Stable cp3 Diagnosis - Dysuria cp3 - Low back pain cp3 Discharge Instructions: - Discharge Summary Sheet cp3 - Dysuria cp3 - Flank Pain, Adult cp3 Forms: - Medication Reconciliation Form cp3 - Thank You Letter cp3 - Antibiotic Education cp3 - Prescription Opioid Use cp3 - Patient Portal Instructions cp3 - Leadership Thank You Letter cp3 Prescriptions: - Ibuprofen 600 mg Oral Tablet - take 1 tablet by ORAL route every 6 hours As needed take with food; 30 tablet; cp3 Refills: 0, Product Selection Permitted - Pyridium 200 mg Oral Tablet - take 1 tablet by ORAL route every 8 hours for 3 days; 9 tablet; Refills: 0, cp3 Product Selection Permitted - Macrobid 100 mg Oral Capsule - take 1 capsule by ORAL route every 12 hours for 10 days; 20 capsule; Refills: cp3 0, Product Selection Permitted Signatures: Dispatcher [employer] Harmeet Carpio MD MD cp3 Aravind Becerra RN RN jl7 Daylin Santiago, SHERON RN eh3 Julieth Pedroza, RN RN me1 Corrections: (The following items were deleted from the chart) 14:29 14:28 UCLR Light-Yellow; [facility] Clear; Urine SG 1.019; UGLUC 4+ (Over); UBILI NEGATIVE; cp3 UKET NEGATIVE; UBLD Negative; UPH 6.5; UPROT NEGATIVE; UUROB Normal; UNIT NEGATIVE; UESTR Negative. cp3
--- NOTE | 2023-05-20 14:39 | ER ---
Nurse's Notes [facility] Name: Sunni Nava Age: 72 yrs Sex: Female : 1950 Arrival Date: 05/20/2023 Time: 12:20 Bed 20 Private MD: Patricia Ni Diagnosis: Dysuria;Low back pain Presentation: 05/20 12:41 Chief complaint: Patient states: c/o left lower back pain that radiates to LLQ abdomen me1 and has burning with urination that started yesterday. Coronavirus screen: Vaccine status: Patient reports receiving the 2nd dose of the covid vaccine. Ebola Screen: No symptoms or risks identified at this time. Initial Sepsis Screen: Does the patient meet any 2 criteria? No. Patient's initial sepsis screen is negative. Does the patient have a suspected source of infection? No. Patient's initial sepsis screen is negative. Risk Assessment: Do you want to hurt yourself or someone else? Patient reports no desire to harm self or others. Onset of symptoms was May 19, 2023. 12:41 Method Of Arrival: Amb[place] [facility] [place] 12:41 Acuity: KIN 4 me1 Triage Assessment: 12:43 General: Appears uncomfortable, obese, well groomed, Behavior is calm, cooperative, me1 appropriate for age. Pain: Complains of pain in right low back Pain radiates to right lower quadrant Pain currently is 9 out of 10 on a pain scale. Quality of pain is described as sharp, Pain began 1 day ago. Is continuous. Neuro: Level of Consciousness is awake, alert, obeys commands, Oriented to person, place, time, situation, Appropriate for age. Cardiovascular: Capillary refill < 3 seconds Patient's skin is warm and dry. Respiratory: Airway is patent Respiratory effort is even, unlabored, Respiratory pattern is regular, symmetrical. Historical: - Allergies: 12:43 No Known Allergies; me1 - Home Meds: 14:48 atorvastatin 40 mg Oral tab 1 tab once daily [Active]; citalopram 40 mg tab 1 tab once eh3 daily [Active]; levothyroxine 50 mcg tab 1 tab once daily [Active]; lisinopril 30 mg Oral tab 1 tab once daily [Active]; losartan 50 mg Oral tab 1 tab once daily [Active]; simvastatin 40 mg Oral tab 1 tab once daily [Active]; - PMHx: 12:43 Gastric Reflux; Hypertension; Hypothyroidism; me1 - PSHx: 12:43 section; me1 - Immunization history:: Adult Immunizations up to date. - Social history:: Smoking status: Patient denies any tobacco usage or history of. - Family history:: not pertinent. Screenin:45 [facility] ED Fall Risk Assessment (Adult) Score/Fall Risk Level 0 - 2 = Low Risk. Abuse eh3 screen: Denies threats or abuse. Denies injuries from another. Nutritional screening: No deficits noted. Tuberculosis screening: No symptoms or risk factors identified. Assessment: 12:45 General: Appears in no apparent distress. uncomfortable, Behavior is calm, cooperative, eh3 appropriate for age. Pain: Complains of pain in right flank. Neuro: Level of Consciousness is awake, alert, obeys commands, Oriented to person, place, time, situation. Cardiovascular: Capillary refill < 3 seconds Patient's skin is warm and dry. Respiratory: Airway is patent Respiratory effort is even, unlabored, Respiratory pattern is regular, symmetrical. GI: Abdomen is round non-distended. Derm: Skin is pink, warm \T\ dry. Musculoskeletal: Circulation, motion, and sensation intact. 13:45 Reassessment: Patient appears in no apparent distress at this time. Patient and/or eh3 family updated on plan of care and expected duration. Pain level reassessed. Patient is alert, oriented x 3, equal unlabored respirations, skin warm/dry/pink. Vital Signs: 12:41 BP 129 / 66; Pulse 58; Resp 17; Temp 98.3; Pulse Ox 97% on R/A; Weight 97.52 kg; Height me1 5 ft. 1 in. ; Pain 9/10; 12:41 Body Mass Index 40.62 (97.52 kg, 154.94 cm) me1 12:41 Pain Scale: Adult me1 ED Course: 12:23 Patient arrived in ED. mr 12:23 Harmeet Stephen MD is Attending Physician. cp3 12:23 Patricia Ni is Private Physician. mr 12:43 Triage completed. me1 12:43 Arm band placed on Patient placed in waiting room. me1 12:45 Patient has correct armband on for positive identification. Bed in low position. Call eh3 light in reach. Side rails up X2. Provided Education on: Use of call león. Pulse ox on. NIBP on. 13:40 CT Abd/Pelvis - Without Contrast In Process Unspecified. EDMS 14:47 No provider procedures requiring assistance completed. Patient did not have IV access eh3 during this emergency room visit. Administered Medications: 13:57 Drug: Acetaminophen PO 1000 mg PO once Route: PO; jl7 14:51 Follow up: Response: No adverse reaction eh3 Medication: 14:47 VIS not applicable for this client. eh3 Outcome: 14:39 Discharge ordered by . 3 14:51 Discharged to home ambulatory, 3 14:51 Condition: stable 14:51 Discharge instructions given to patient, Instructed on discharge instructions, follow up and referral plans. medication usage, Demonstrated understanding of instructions, follow-up care, medications, Prescriptions given X 3, 14:58 Patient left the ED. 3 Signatures: Dispatcher [employer] Harmeet Carpio MD MD 3 Misti Pradhan Jahala RN RN jl7 Daylin Santiago RN RN 3 Julieth Pedroza, RN RN ms1
[2023-05-20 15:04] VITALS: BP 129/66; TEMP 98.3; O2SAT 97
== END 2023-05-20 14:58 | disposition home or self-care (01) ==
LOC: ER 12:20
DX: R30.0 Dysuria (principal); M54.50 Low back pain, unspecified; I10 Essential (primary) hypertension
CPT/HCPCS: 74176; 81003

== ENCOUNTER → 2023-09-14 | Emergency (ER) | payer OTHER ==
[~2023-09-14] MED LIST: CYCLOBENZAPRINE 10 MG TAB ONE; IBUPROFEN 400 MG TAB ONE
--- OUTSIDE RECORDS SUMMARY | 2023-09-14 19:33 | XMS REPORT | Continuity of Care Document ---
Author Name Unknown Address [address] [place] [address] [facility] thconnect Address [address] [facility] [address] [place] [address] Care Team Providers Care Manager Proposal Name Role Phone [email or web address] Attending Clinician Unavaila ble RADIOLOGY Attending Clinician Unavailable Bart Horner MD Attending Clinician [phone] Khanh Garcia Attending Clinician [phone] Only, Adc Test Attending Clinician Unavailable Darren Diaz MD Attending Clinician [phone] Doctor Unassigned, [place] Attending Clinician U mario Conley RN, Chiqui Attending Clinician Unavailable VENESSA CARRERO Attending Clinician Unavailabl KHANH Castillo Attending Clinician Unavailable [email or web address] Admitting Clinician Unavaila irvin Payers Payer Name Policy Type Policy Number Effective Date Expirati on Date Source [facility] DUAL COMP HMO D SNP [id number] 2020 00:00:00 Allergies, Adverse Reactions, Alerts Allergy Name Allergy Type Status Severity Reaction(s) Onset Date Inactive Date Treating Clinician Comments Source NO KNOWN ALLERGIE S Drug Class Active [facility] Social History Social Habit Start Date Stop Date Quantity Comments Source History SDOH Alcohol Std Drinks [facility] History SDOH Alcohol Binge [facility] Exposure to SARS-CoV-2 (event) Not sure [facility] Sex Assigned At [facility] Alcohol intake 2020-03-16 00:00:00 2020-03-16 00:00:00 Lifetime non-drinker (finding) [facility] History SDOH Alcohol Frequency 2020-03-16 00:00:00 2020-03-16 00:00:00 1 [facility] Tobacco use and exposure 2020-03-16 00:00:00 2020-03-16 00:00:00 Never used [facility] Smoking Status Start Date Stop Date Source Unknown [facility] Medications Ordered Medication Name Filled Medication Name Start Date Stop Date Current Medication? Ordering Clinician Indication Dosage Frequency Signature (SIG) Comments Components Source GABAPENTIN 300 mg capsule 2019-09 00:00: 00 Yes [id number] TAKE 1 CAPSULE BY MOUTH 3 TIMES A DAY [facility] GABAPENTIN 300 mg capsule 2019-09 00:00: 00 Yes [id number] TAKE 1 CAPSULE BY MOUTH 3 TIMES A DAY [facility] GABAPENTIN 300 mg capsule 2019-09 00:00: 00 Yes [id number] TAKE 1 CAPSULE BY MOUTH 3 TIMES A DAY [facility] GABAPENTIN 300 mg capsule 2019-09 00:00: 00 Yes [id number] TAKE 1 CAPSULE BY MOUTH 3 TIMES A DAY [facility] GABAPENTIN 300 mg capsule 2019-09 00:00: 00 Yes [id number] TAKE 1 CAPSULE BY MOUTH 3 TIMES A DAY [facility] GABAPENTIN 300 mg capsule 2019-09 00:00: 00 Yes [id number] TAKE 1 CAPSULE BY MOUTH 3 TIMES A DAY [facility] GABAPENTIN 300 mg capsule 2019-09 00:00: 00 07-19 00:00 :00 No [id number] TAKE 1 CAPSULE BY MOUTH 3 TIMES A DAY [facility] gabapentin (NEURONTIN) 300 mg capsule 03-16 00:00: 00 04-16 04:59 :00 No [id number] 300mg Take 1 capsule by mouth 3 (three) times daily for 30 days. [facility] gabapentin (NEURONTIN) 300 mg capsule 03-16 00:00: 04-16 04:59 :00 No [id number] 300mg Take 1 capsule by mouth 3 (three) times daily for 30 days. [facility] gabapentin (NEURONTIN) 300 mg capsule 03-16 00:00: 04-16 04:59 :00 No [id number] 300mg Take 1 capsule by mouth 3 (three) times daily for 30 days. [facility] citalopram 40 mg tablet 03-08 00:00: 00 Yes [facility] citalopram 40 mg tablet 03-08 00:00: 00 Yes [facility] citalopram 40 mg tablet 03-08 00:00: 00 Yes [facility] citalopram 40 mg tablet 03-08 00:00: 00 Yes [facility] citalopram 40 mg tablet 03-08 00:00: 00 Yes [facility] citalopram 40 mg tablet 03-08 00:00: 00 Yes [facility] citalopram 40 mg tablet 03-08 00:00: 00 Yes [facility] citalopram 40 mg tablet 03-08 00:00: 00 Yes [facility] citalopram 40 mg tablet 03-08 00:00: 00 Yes [facility] 02-04 00:00: 00 Yes 50mg Take 50 mg by mouth daily. [facility] losartan 50 mg tablet 02-04 00:00: 00 Yes 50mg Take 50 mg by mouth daily. [facility] losartan 50 mg tablet 02-04 00:00: 00 Yes 50mg Take 50 mg by mouth daily. [facility] losartan 50 mg tablet 02-04 00:00: 00 Yes 50mg Take 50 mg by mouth daily. [facility] losartan 50 mg tablet 02-04 00:00: 00 Yes 50mg Take 50 mg by mouth daily. [facility] losartan 50 mg tablet 02-04 00:00: 00 Yes 50mg Take 50 mg by mouth daily. [facility] losartan 50 mg tablet 0 05 00:00: 00 Yes 50mg Take 50 mg by mouth daily. [facility] losartan 50 mg tablet 0 605 00:00: 00 Yes 50mg Take 50 mg by mouth daily. [facility] losartan 50 mg tablet 0 605 00:00: 00 Yes 50mg Take 50 mg by mouth daily. [facility] atorvastati n 40 mg tablet 0 17 00:00: 00 Yes 40mg Take 40 mg by mouth daily. [facility] atorvastati n 40 mg tablet 0 17 00:00: 00 Yes 40mg Take 40 mg by mouth daily. [facility] atorvastati n 40 mg tablet 0 01-16 00:00: 00 Yes 40mg Take 40 mg by mouth daily. [facility] atorvastati n 40 mg tablet 0 01-16 00:00: 00 Yes 40mg Take 40 mg by mouth daily. [facility] atorvastati n 40 mg tablet 0 01-16 00:00: 00 Yes 40mg Take 40 mg by mouth daily. [facility] atorvastati n 40 mg tablet 0 01-16 00:00: 00 Yes 40mg Take 40 mg by mouth daily. [facility] atorvastati n 40 mg tablet 0 17 00:00: 00 Yes 40mg Take 40 mg by mouth daily. [facility] atorvastati n 40 mg tablet 0 17 00:00: 00 Yes 40mg Take 40 mg by mouth daily. [facility] atorvastati n 40 mg tablet 0 17 00:00: 00 Yes 40mg Take 40 mg by mouth daily. [facility] levothyroxi ne 50 mcg tablet 0 30 00:00: 00 Yes 50ug Take 50 mcg by mouth. [facility] levothyroxi ne 50 mcg tablet 0 30 00:00: 00 Yes 50ug Take 50 mcg by mouth. [facility] levothyroxi ne 50 mcg tablet 12-30 00:00: 00 Yes 50ug Take 50 mcg by mouth. [facility] levothyroxi ne 50 mcg tablet 12-30 00:00: 00 Yes 50ug Take 50 mcg by mouth. [facility] levothyroxi ne 50 mcg tablet 12-30 00:00: 00 Yes 50ug Take 50 mcg by mouth. [facility] levothyroxi ne 50 mcg tablet 12-30 00:00: 00 Yes 50ug Take 50 mcg by mouth. [facility] levothyroxi ne 50 mcg tablet 12-30 00:00: 00 Yes 50ug Take 50 mcg by mouth. [facility] levothyroxi ne 50 mcg tablet 12-30 00:00: 00 Yes 50ug Take 50 mcg by mouth. [facility] levothyroxi ne 50 mcg tablet 12-30 00:00: 00 Yes 50ug Take 50 mcg by mouth. [facility] Vital Signs Vital Name Observation Time Observation Value Comments S ource Systolic blood pressure 2020-03-16 19:25:00 115 [facility] Diastolic blood pressure 2020-03-16 19:25:00 63 mm[Hg[facility] Heart rate 2020-03-16 19:25:00 74 /min [facility] Body height 2020-03-16 19:25:00 161.3 cm [facility] Body weight 2020-03-16 19:25:00 92.806 kg [facility] BMI 2020-03-16 19:25:00 35.67 kg/m2 [facility] Systolic blood pressure 2020-03-16 19:25:00 115 mm[Hg] [facility] Diastolic blood pressure 2020-03-16 19:25:00 63 mm[Hg] [facility] Heart rate 2020-03-16 19:25:00 74 /min [facility] Body height 2020-03-16 19:25:00 161.3 cm [facility] Body weight 2020-03-16 19:25:00 92.806 kg [facility] BMI 2020-03-16 19:25:00 35.67 kg/m2 [facility] Procedures Procedure Date / Time Performed Performing Clinicia n Source ASSIGNMENT OF BENEFITS 2020-07-14 18:06:32 Docto r Unassigned, [place] [facility] ASSIGNMENT OF BENEFITS 2020-03-16 19:19:42 Docto r Unassigned, [place] [facility] Encounters Start Date/Time End Date/Time Encounter Type Admission Type Attending Clinicians Care Facility Care Department Encounter ID Source 2023-06-28 00:00:00 2023-06-28 00:00:00 Outpatient [email or web address]_S [facility] [id number] [facility] 2021-02-09 00:00:00 2021-02-09 00:00:00 Outpatient R [facility] [id number] [facility] 2021-02-02 00:00:00 2021-02-02 00:00:00 Outpatient R RADIOLOGY [facility] [id number] [facility] 2020-07-18 00:00:00 2020-07-18 00:00:00 Letter (Out) Bart Horner [facility] One .840.114 350.1.13.10 4.2.7.2.686 [id number] 2020-07-18 00:00:00 2020-07-18 00:00:00 Letter (Out) Bart Horner [facility] One ..840.114 350.1.13.10 4.2.7.2.686 [id number] [facility] 2020-07-16 00:00:00 2020-07-16 00:00:00 Khanh Hunter [facility] 1..840.114 350.1.13.10 4.2.7.2.686 [id number] 2020-07-16 00:00:00 2020-07-16 00:00:00 Khanh Hunter Kim [facility] [place] 1.2.840.114 350.1.13.10 4.2.7.2.686 [id number] [facility] 2020-07-14 12:09:44 2020-07-14 12:24:44 Laboratory Only Only, Adc Test [facility] 1.2.840.114 350.1.13.10 4.2.7.2.686 [id number] 2020-07-14 12:09:44 2020-07-14 12:24:44 Laboratory Only Only, Adc Test Darren Diaz [facility] 1.2.840.114 350.1.13.10 4.2.7.2.686 [id number] [facility] 2020-07-14 12:00:00 2020-07-14 12:00:00 Outpatient R [facility] [id number] [facility] 2020-07-14 00:00:00 2020-07-14 00:00:00 Orders Only Doctor Unassigned, [place] [facility] 1.2.840.114 350.1.13.10 4.2.7.2.686 [id number] 2020-07-14 00:00:00 2020-07-14 00:00:00 Letter (Out) Yael [facility] 1.2.840.114 350.1.13.10 4.2.7.2.686 [id number] 2020-07-14 00:00:00 2020-07-14 00:00:00 Orders Only Doctor Unassigned, [place] [facility] 1.2.840.114 350.1.13.10 4.2.7.2.686 [id number] [facility] 2020-07-14 00:00:00 2020-07-14 00:00:00 Letter (Out) Yael [facility] 1.2.840.114 350.1.13.10 4.2.7.2.686 [id number] [facility] 2020-07-06 00:00:00 2020-07-06 00:00:00 Refjacy Giraldo [facility] [place] 1.2.840.114 350.1.13.10 4.2.7.2.686 [id number] 2020-07-06 00:00:00 2020-07-06 00:00:00 Refjacy Giraldo [facility] [place] 1.2.840.114 350.1.13.10 4.2.7.2.686 [id number] [facility] 2020-06-28 09:00:00 2020-06-28 09:00:00 Outpatient R VENESSA CARRERO [facility] [id number] [facility] 2020-03-16 14:21:17 2020-05-02 12:54:12 Office Visit Kristal [facility] [place] 1.2.840.114 350.1.13.10 4.2.7.2.686 [id number] [facility] 2020-03-16 14:21:17 2020-05-02 12:54:12 Office Visit Kristal [facility] [place] 1.2.840.114 350.1.13.10 4.2.7.2.686 [id number] 2020-03-16 14:45:00 2020-03-16 14:45:00 Outpatient R KRISTAL [facility] [id number] [facility] 2020-03-16 00:00:00 2020-03-16 00:00:00 Orders Only Doctor Unassigned, [place] [facility] 1.2.840.114 350.1.13.10 4.2.7.2.686 [id number] [facility]
--- NOTE | 2023-09-14 21:12 | RAD REPORT ---
EXAM DESCRIPTION: Ribs Right - 09/14/2023 8:40 pm CLINICAL HISTORY: Right rib pain FINDINGS: No fracture is seen
[2023-09-14 21:57] LABS: Specific Gravity 1.015 (1.005-1.030); Urine Bacteria None Seen /HPF (<20); Urine Bilirubin NEGATIVE (Negative); Urine Blood Negative (Negative); Urine Clarity Clear (Clear); Urine Color Light-Yellow (Yellow); Urine Glucose 4+ (Over) (Negative); Urine Protein NEGATIVE (Negative); Urine RBC <5 /HPF (None Seen); Urine Urobilinogen Normal (Normal)
--- NOTE | 2023-09-14 23:11 | ER ---
Nurse's Notes [facility] Name: Sunni Nava Age: 72 yrs Sex: Female : 1950 Arrival Date: 09/14/2023 Time: 19:30 Bed IW1 Private MD: Patricia Ni Diagnosis: Dorsalgia, unspecified;Dysuria Presentation: 09/14 19:37 Chief complaint: Patient states: Mid back pain since yesterday. No known injury. Has nj1 not taken any OTC medications. Coronavirus screen: Vaccine status: Patient reports receiving the 2nd dose of the covid vaccine. Ebola Screen: Patient denies travel to an Ebola-affected area in the 21 days before illness onset. Initial Sepsis Screen: Does the patient meet any 2 criteria? No. Patient's initial sepsis screen is negative. Does the patient have a suspected source of infection? No. Patient's initial sepsis screen is negative. Risk Assessment: Do you want to hurt yourself or someone else? Patient reports no desire to harm self or others. Onset of symptoms was September 13, 2023. 19:37 Method Of Arrival: Ambulatory [facility] 19:37 Acuity: KIN 3 nj1 Historical: - Allergies: 19:41 No Known Allergies; nj1 - PMHx: 19:41 Gastric Reflux; Hypertension; Hypothyroidism; Depressive disorder; Hypercholesterolemia;nj1 - PSHx: 19:41 section; hysterectomy; section; nj1 - Immunization history:: Client reports receiving the 2nd dose of the Covid vaccine. - Social history:: Smoking status: Patient denies any tobacco usage or history of. Screenin:15 [facility] ED Fall Risk Assessment (Adult) History of falling in the last 3 months, lg3 including since admission No falls in past 3 months (0 pts). Abuse screen: Denies threats or abuse. Denies injuries from another. Nutritional screening: No deficits noted. Tuberculosis screening: No symptoms or risk factors identified. Assessment: 23:15 General: Appears in no apparent distress. comfortable, Behavior is calm, cooperative. lg3 Pain: Complains of pain in low back area. Neuro: No deficits noted. Daily Agitation-Sedation Scale (RASS): 0 - Alert and Calm Level of Consciousness is awake, alert, obeys commands, Oriented to person, place, time, situation. Cardiovascular: No deficits noted. Denies chest pain, shortness of breath, Capillary refill < 3 seconds Clubbing of nail beds is absent JVD is absent Patient's skin is warm and dry. Respiratory: No deficits noted. Airway is patent Respiratory effort is even, unlabored, Respiratory pattern is regular, symmetrical. GI: No deficits noted. No signs and/or symptoms were reported involving the gastrointestinal system. : No deficits noted. No signs and/or symptoms were reported regarding the genitourinary system. EENT: No deficits noted. No signs and/or symptoms were reported regarding the EENT system. Derm: No deficits noted. No signs and/or symptoms reported regarding the dermatologic system. Skin is intact, is healthy with good turgor, Skin is dry, Skin is normal, Skin temperature is warm. Musculoskeletal: No deficits noted. Circulation, motion, and sensation intact. Range of motion: intact in all extremities, Reports pain in low back area. Vital Signs: 19:37 BP 127 / 75; Pulse 77; Resp 16; Temp 98.1(O); Pulse Ox 98% ; Weight 86.18 kg; Height 5 nj1 ft. 7 in. ; Pain 9/10; 23:15 BP 124 / 76; Pulse 71; Resp 17 S; Pulse Ox 99% on R/A; lg3 19:37 Body Mass Index 29.76 (86.18 kg, 170.18 cm) nj1 19:37 Pain Scale: Adult nj1 ED Course: 19:32 Patient arrived in ED. rg4 19:32 Patricia Ni is Private Physician. rg4 19:34 [facility] cp 19:34 Carlton Marinelli MD is Attending Physician. cp 19:41 Triage completed. nj1 19:42 Arm band placed on right wrist. nj1 20:42 XRAY Ribs RIGHT In Process Unspecified. EDMS 21:41 Urinalysis W/Microscopic Sent. lg3 23:15 Patient has correct armband on for positive identification. lg3 23:15 No provider procedures requiring assistance completed. Patient did not have IV access lg3 during this emergency room visit. Administered Medications: 20:24 Drug: Ibuprofen PO 800 mg PO once Route: PO; la4 23:19 Follow up: Response: No adverse reaction lg3 23:08 Drug: Cyclobenzaprine PO 10 mg PO once Route: PO; lg3 23:19 Follow up: Response: No adverse reaction; Marked relief of symptoms lg3 Medication: 23:15 VIS not applicable for this client. lg3 Outcome: 23:10 Discharge ordered by . cp 23:15 Discharged to home ambulatory, lg3 23:15 Condition: stable 23:15 Discharge instructions given to patient, Instructed on discharge instructions, follow up and referral plans. medication usage, Demonstrated understanding of instructions, follow-up care, medications, Prescriptions given X 3, 23:19 Patient left the ED. lg3 Signatures: Dispatcher [employer] EDMS Wagner Thomas PA PA cp Garcia, Rubi rg4 Isela Kinsey RN RN lg3 Haleigh Akins RN RN nj1 Ismael Santiago RN RN la4
--- NOTE | 2023-09-14 23:11 | EDPHYS ---
Physician Documentation [facility] Name: Sunni Nava Age: 72 yrs Sex: Female : 1950 Arrival Date: 09/14/2023 Time: 19:30 Bed IW1 Private MD: Patricia Ni ED Physician Carlton Marinelli HPI: 09/14 20:00 This 72 yrs old Female presents to ER via Ambulatory with complaints of Low cp Back Pain. 20:00 The patient presents with pain that is acute, with no known mechanism of injury. The cp symptoms are located in the right subscapular area and right mid back. The pain does not radiate. The problem was sustained from unknown cause. 20:00 Onset: The symptoms/episode began/occurred yesterday. cp 20:00 Modifying factors: the patient symptoms are aggravated by movement. Associated signs cp and symptoms: Pertinent negatives: abdominal pain, chest pain, constipation, dysuria, fever, headache, incontinence, numbness, weakness, cough, shortness of breath. Severity of symptoms: in the emergency department the symptoms are unchanged, despite home interventions. Historical: - Allergies: 19:41 No Known Allergies; nj1 - PMHx: 19:41 Gastric Reflux; Hypertension; Hypothyroidism; Depressive disorder; Hypercholesterolemia;nj1 - PSHx: 19:41 section; hysterectomy; section; nj1 - Immunization history:: Client reports receiving the 2nd dose of the Covid vaccine. - Social history:: Smoking status: Patient denies any tobacco usage or history of. ROS: 20:05 Constitutional: Negative for body aches, chills, fever, poor PO intake, cp 20:05 Cardiovascular: Negative for chest pain, edema, palpitations, cp 20:05 Respiratory: Negative for cough, shortness of breath, wheezing, 20:05 Abdomen/GI: Negative for abdominal pain, vomiting, diarrhea, constipation, bowel incontinence, 20:05 Back: Positive for pain at rest, pain with movement, of the right subscapular area and right mid back, Negative for injury or acute deformity, decreased range of motion, 20:05 : Negative for urinary symptoms, 20:05 Skin: Negative for cellulitis, rash, 20:05 Neuro: Negative for altered mental status, dizziness, headache, numbness, weakness, 20:05 All other systems are negative, Exam: 20:10 Constitutional: The patient appears in no acute distress, alert, awake, cp non-diaphoretic, non-toxic, well developed, well nourished, 20:10 Head/Face: Normocephalic, atraumatic. cp 20:10 Eyes: Periorbital structures: appear normal, Conjunctiva: normal, no exudate, no cp injection, Sclera: no appreciated abnormality, Lids and lashes: appear normal, bilaterally, 20:10 ENT: External ear(s): are unremarkable, Nose: is normal, Mouth: Lips: moist, Oral mucosa: pink and intact, moist, Posterior pharynx: Airway: no evidence of obstruction, patent, 20:10 Neck: ROM/movement: is normal, is supple, without pain, no range of motions limitations, no nuchal rigidity, 20:10 Chest/axilla: Inspection: normal, Palpation: is normal, no crepitus, no tenderness, cp 20:10 Cardiovascular: Rate: normal, Rhythm: regular, Edema: is not appreciated, JVD: is not appreciated, 20:10 Respiratory: the patient does not display signs of respiratory distress, Respirations: normal, no use of accessory muscles, no retractions, labored breathing, is not present, Breath sounds: are clear throughout, no decreased breath sounds, no stridor, no wheezing, 20:10 Abdomen/GI: Inspection: abdomen appears normal, Palpation: abdomen is soft and non-tender, in all quadrants, 20:10 Back: pain, that is mild, of the right subscapular area and right mid back, ROM is painful, with all movement, vertebral tenderness, is not appreciated, muscle spasm, is not present, 20:10 Skin: cellulitis, is not appreciated, no rash present. 20:10 Neuro: Orientation: to person, place \T\ time. Mentation: is normal, Motor: moves all fours, strength is normal, Sensation: is normal, Gait: is steady, at a normal pace, without difficulty, Vital Signs: 19:37 BP 127 / 75; Pulse 77; Resp 16; Temp 98.1(O); Pulse Ox 98% ; Weight 86.18 kg; Height 5 nj1 ft. 7 in. ; Pain 9/10; 23:15 BP 124 / 76; Pulse 71; Resp 17 S; Pulse Ox 99% on R/A; lg3 19:37 Body Mass Index 29.76 (86.18 kg, 170.18 cm) nj1 19:37 Pain Scale: Adult nj1 MDM: 19:44 Patient medically screened. cp 23:10 Data reviewed: vital signs, nurses notes, radiologic studies, plain films. cp 23:10 Differential diagnosis: fracture, muscle strain, muscle spasm. I considered the cp following discharge prescriptions or medication management in the emergency department Medications were administered in the Emergency Department. See MAR. Test considered but Not performed: CT: chest and abdomen. Counseling: I had a detailed discussion with the patient and/or guardian regarding the historical points, exam findings, and any diagnostic results supporting the discharge/admit diagnosis, radiology results, to return to the emergency department if symptoms worsen or persist or if there are any questions or concerns that arise at home. Response to treatment: the patient's symptoms have mildly improved after treatment, and as a result, I will discharge patient. 09/14 19:49 Order name: Urinalysis W/Microscopic; Complete Time: 22:22 cp 09/14 19:49 Order name: XRAY Ribs RIGHT; Complete Time: 22:22 cp Administered Medications: 20:24 Drug: Ibuprofen PO 800 mg PO once Route: PO; la4 23:19 Follow up: Response: No adverse reaction lg3 23:08 Drug: Cyclobenzaprine PO 10 mg PO once Route: PO; lg3 23:19 Follow up: Response: No adverse reaction; Marked relief of symptoms lg3 Disposition Summary: 09/14/23 23:10 Discharge Ordered Notes: Location: Home cp Problem: new cp Symptoms: have improved cp Condition: Stable cp Diagnosis - Dorsalgia, unspecified cp - Dysuria cp Followup: cp - With: Private Physician - When: 2 - 3 days - Reason: Recheck today's complaints Discharge Instructions: - Discharge Summary Sheet cp - Acute Back Pain, Adult cp - Dysuria cp Forms: - Medication Reconciliation Form cp - Thank You Letter cp - Antibiotic Education cp - Prescription Opioid Use cp - Patient Portal Instructions cp - Leadership Thank You Letter cp Prescriptions: - Ibuprofen 800 mg Oral Tablet - take 1 tablet ORAL route every 8 hours As needed take with food; 30 tablet; cp Refills: 0, Product Selection Permitted - Cyclobenzaprine 10 mg Oral Tablet - take 1 tablet ORAL route every 8 hours As needed; 30 tablet; Refills: 0, cp Product Selection Permitted - Macrobid 100 mg Oral Capsule - take 1 capsule ORAL route every 12 hours for 7 days; 14 capsule; Refills: 0, cp Product Selection Permitted Addendum: 09/16/2023 03:05 Co-signature as Attending Physician, Carlton Marinelli MD I agree with the assessment s p4 and plan of care. I reviewed the patient's care provided by the Advanced Practice Provider and agree with the diagnosis and treatment plan. Signatures: Dispatcher [employer] EDMS Wagner Thomas PA PA cp Able, Lacie RN RN lg3 Carlton Marinelli MD MD sp4 Haleigh Akins RN RN nj1 Ismael Santiago RN RN la4
[2023-09-15 00:32] VITALS: BP 124/76; TEMP 98.1; O2SAT 99
== END ==
LOC: ER 19:30
DX: M54.9 Dorsalgia, unspecified (principal); R30.0 Dysuria
CPT/HCPCS: 81001; 99283

== ENCOUNTER 2024-10-02 | Emergency (ER) | payer OTHER ==
--- OUTSIDE RECORDS SUMMARY | 2024-10-02 00:02 | XMS REPORT | Continuity of Care Document ---
Author Name Unknown Address [address] [facility] [place] [address] [facility] thconnect Address 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 Name Role Phone [email or web address] Attending Clinician Unavaila ble RADIOLOGY Attending Clinician Unavailable Bart Horner MD Attending Clinician [phone] Leidy Garcia Attending Clinician [phone] Only, Adc Test Attending Clinician Unavailable Darren Diaz MD Attending Clinician [phone] Doctor Unassigned, [place] Attending Clinician U mario Conley RN, Chiqui Attending Clinician Unavailable VENESSA CARRERO Attending Clinician Unavailabl LEIDY Castillo Attending Clinician Unavailable [email or web address] Admitting Clinician Unavaila irvin Payers Payer Name Policy Type Policy Number Effective Date Expirati on Date Source [facility] DUAL COMP HMO D SNP [id number] 2020 00:00:00 Allergies, Adverse Reactions, Alerts Allergy Name Allergy Type Status Severity Reaction(s) Onset Date Inactive Date Treating Clinician Comments Source NO KNOWN ALLERGIE S Drug Class Active [facility] Social History Social Habit Start Date Stop Date Quantity Comments Source History SDOH Alcohol Std Drinks [facility] History SDOH Alcohol Binge [facility] Exposure to SARS-CoV-2 (event) Not sure [facility] Sex Assigned At [facility] Alcohol intake 2020-03-16 00:00:00 2020-03-16 00:00:00 Lifetime non-drinker (finding) [facility] History SDOH Alcohol Frequency 2020-03-16 00:00:00 2020-03-16 00:00:00 1 [facility] Tobacco use and exposure 2020-03-16 00:00:00 2020-03-16 00:00:00 Never used [facility] Smoking Status Start Date Stop Date Source Unknown if ever smoked [facility] Never smoker [facility] Medications Ordered Medication Name Filled Medication Name Start Date Stop Date Current Medication? Ordering Clinician Indication Dosage Frequency Signature (SIG) Comments Components Source GABAPENTIN 300 mg capsule 2019-09 00:00: 00 Yes [id number] TAKE 1 CAPSULE BY MOUTH 3 TIMES A DAY [facility] GABAPENTIN 300 mg capsule 2019-09 00:00: 00 07-19 00:00 :00 No [id number] TAKE 1 CAPSULE BY MOUTH 3 TIMES A DAY [facility] gabapentin (NEURONTIN) 300 mg capsule 03-16 00:00: 00 04-16 04:59 :00 No [id number] 300mg Take 1 capsule by mouth 3 (three) times daily for 30 days. [facility] citalopram 40 mg tablet 03-08 00:00: 00 Yes [facility] losartan 50 mg tablet 02-04 00:00: 00 Yes 50mg Take 50 mg by mouth daily. [facility] atorvastati n 40 mg tablet 01-16 00:00: 00 Yes 40mg Take 40 mg by mouth daily. [facility] levothyroxi ne 50 mcg tablet 30 00:00: 00 Yes 50ug Take 50 mcg by mouth. [facility] Vital Signs Vital Name Observation Time Observation Value Comments S marivel Systolic blood pressure 2020-03-16 19:25:00 115 mm[Hg] [facility] Diastolic blood pressure 2020-03-16 19:25:00 63 mm[Hg] [facility] Heart rate 2020-03-16 19:25:00 74 /min [facility] Body height 2020-03-16 19:25:[address] [facility] Body weight 2020-03-16 19:25:[address] [facility] BMI 2020-03-16 19:25:00 35.67 kg/m2 [facility] Systolic blood pressure 2020-03-16 19:25:00 115 mm[Hg] [place] [facility] Diastolic blood pressure 2020-03-16 19:25:00 63 mm[Hg] [facility] Heart rate 2020-03-16 19:25:00 74 /min [facility] Body height 2020-03-16 19:25:[address] [facility] Body weight 2020-03-16 19:25:[address] [facility] BMI 2020-03-16 19:25:00 35.67 kg/m2 [facility] Procedures Procedure Date / Time Performed Performing Clinicia n Source ASSIGNMENT OF BENEFITS 2020-07-14 18:06:32 Docto r Unassigned, [place] [facility] ASSIGNMENT OF BENEFITS 2020-03-16 19:19:42 Docto r Unassigned, [place] [facility] Encounters Start Date/Time End Date/Time Encounter Type Admission Type Attending Clinicians Care Facility Care Department Encounter ID Source 2023-06-28 00:00:00 2023-06-28 00:00:00 Outpatient [email or web address]_S PRIV [facility] [id number] [facility] 2021-02-09 00:00:00 2021-02-09 00:00:00 Outpatient R [facility] [id number] [facility] 2021-02-02 00:00:00 2021-02-02 00:00:00 Outpatient R RADIOLOGY [facility] [id number] [facility] 2020-07-18 00:00:00 2020-07-18 00:00:00 Letter (Out) Bart Horner [facility] One 1.2.840.114 350.1.13.10 4.2.7.2.686 [id number] 2020-07-18 00:00:00 2020-07-18 00:00:00 Letter (Out) Bart Horner [facility] One 1.2.840.114 350.1.13.10 4.2.7.2.686 [id number] [facility] 2020-07-16 00:00:00 2020-07-16 00:00:00 Hawk [facility]iral[facility] 1.2.840.114 350.1.13.10 4.2.7.2.686 [id number] 2020-07-16 00:00:00 2020-07-16 00:00:00 Hawk [facility]iraldo [facility] 1.2.840.114 350.1.13.10 4.2.7.2.686 [id number] [facility] 2020-07-14 12:09:44 2020-07-14 12:24:44 Laboratory Only Only, Adc Test [facility] 1.2.840.114 350.1.13.10 4.2.7.2.686 [id number] 2020-07-14 12:09:44 2020-07-14 12:24:44 Laboratory Only Only, Adc Test Darren Diaz [facility] 1.2.840.114 350.1.13.10 4.2.7.2.686 [id number] [facility] 2020-07-14 12:00:00 2020-07-14 12:00:00 Outpatient R [facility] [id number] [facility] 2020-07-14 00:00:00 2020-07-14 00:00:00 Orders Only Doctor Unassigned, [place] [facility] 1.2.840.114 350.1.13.10 4.2.7.2.686 [id number] 2020-07-14 00:00:00 2020-07-14 00:00:00 Letter (Out) [facility] 1.2.840.114 350.1.13.10 4.2.7.2.686 [id number] 2020-07-14 00:00:00 2020-07-14 00:00:00 Orders Only Doctor Unassigned, [place] [facility] 1.2.840.114 350.1.13.10 4.2.7.2.686 [id number] [facility] 2020-07-14 00:00:00 2020-07-14 00:00:00 Letter (Out) [facility] 1.2.840.114 350.1.13.10 4.2.7.2.686 [id number] [facility] 2020-07-06 00:00:00 2020-07-06 00:00:00 Refjacy Giraldo [facility] [place] 1.2.840.114 350.1.13.10 4.2.7.2.686 [id number] 2020-07-06 00:00:00 2020-07-06 00:00:00 Hawk Giraldo [facility] [place] 1.2.840.114 350.1.13.10 4.2.7.2.686 [id number] [facility] 2020-06-28 09:00:00 2020-06-28 09:00:00 Outpatient VENESSA ECHEVERRIA [facility] [id number] [facility] 2020-03-16 14:21:17 2020-05-02 12:54:12 Office Visit Kristal Leidy [facility] [place] 1.2.840.114 350.1.13.10 4.2.7.2.686 [id number] [facility] 2020-03-16 14:21:17 2020-05-02 12:54:12 Office Visit Leidy Giraldo [facility] [place] 1.2.840.114 350.1.13.10 4.2.7.2.686 [id number] 2020-03-16 14:45:00 2020-03-16 14:45:00 Outpatient R LEIDY GIRALDO [facility] [id number] [facility] 2020-03-16 00:00:00 2020-03-16 00:00:00 Orders Only Doctor Unassigned, [place] [facility] 1..840.114 350.1.13.10 4.2.7.2.686 [id number] [facility]
[2024-10-02 01:45] LABS: SARS-CoV-2 Antigen CONTROL BLUE LINE VIS/BG OK; SARS-CoV-2 Antigen Rapid Res Positive (Negative)
[2024-10-02] MEDS ORDERED: ASPIRIN 81 MG CHEWABLE TABLET ONE (01:56)
[2024-10-02] MEDS ORDERED: FAMOTIDINE 20 MG TAB ONE (01:57)
[2024-10-02] MEDS ORDERED: AZITHROMYCIN 250 MG TAB ONE (01:57)
--- NOTE | 2024-10-02 02:03 | EDPHYS ---
Physician Documentation [facility] Name: Sunni Nava Age: 74 yrs Sex: Female : 1950 Arrival Date: 10/02/2024 Time: 00:00 Bed 13 Private MD: ED Physician Wagner Rivas HPI: 10/02 01:54 This 74 yrs old Female presents to ER via Ambulatory with complaints of Flu vaibhav Symptoms. 01:54 The patient or guardian reports airway noise, cough, flu symptoms, arthralgias, vaibhav low-grade fever, myalgias, no appetite. Onset: The symptoms/episode began/occurred 5 day(s) ago. Modifying factors: The symptoms are alleviated by nothing. the symptoms are aggravated by nothing. COUGH, MALAISE, ACHES. Associated signs and symptoms: Pertinent positives: fever, rhinorrhea, sore throat. Severity of symptoms: At their worst the symptoms were mild moderate in the emergency department the symptoms are unchanged. The patient has experienced similar episodes in the past, several times. Historical: - Allergies: 00:36 No Known Allergies; rg5 - Immunization history:: Adult Immunizations up to date. - Infectious Disease History:: Denies. - Social history:: Smoking status: Patient denies any tobacco usage or history of. - Family history:: not pertinent. ROS: 01:54 Eyes: Negative for injury, pain, redness, and discharge, ENT: Negative for injury, vaibhav pain, and discharge, Neck: Negative for injury, pain, and swelling, Cardiovascular: Negative for chest pain, palpitations, and edema, Abdomen/GI: Negative for abdominal pain, nausea, vomiting, diarrhea, and constipation, Back: Negative for injury and pain, : Negative for injury, bleeding, discharge, and swelling, MS/Extremity: Negative for injury and deformity, Skin: Negative for injury, rash, and discoloration, Neuro: Negative for headache, weakness, numbness, tingling, and seizure, Psych: Negative for depression, anxiety, suicide ideation, homicidal ideation, and hallucinations, Allergy/Immunology: Negative for hives, rash, and allergies, Endocrine: Negative for neck swelling, polydipsia, polyuria, polyphagia, and marked weight changes, Hematologic/Lymphatic: Negative for swollen nodes, abnormal bleeding, and unusual bruising, 01:54 Constitutional: Positive for body aches, chills, fatigue, fever, malaise, poor PO intake, 01:54 Respiratory: Positive for cough, Exam: 01:54 Constitutional: This is a well developed, well nourished patient who is awake, alert, vaibhav and in no acute distress. Head/Face: Normocephalic, atraumatic. Eyes: Pupils equal round and reactive to light, extra-ocular motions intact. Lids and lashes normal. Conjunctiva and sclera are non-icteric and not injected. Cornea within normal limits. Periorbital areas with no swelling, redness, or edema. ENT: Nares patent. No nasal discharge, no septal abnormalities noted. Tympanic membranes are normal and external auditory canals are clear. Oropharynx with no redness, swelling, or masses, exudates, or evidence of obstruction, uvula midline. Mucous membranes moist. Neck: Trachea midline, no thyromegaly or masses palpated, and no cervical lymphadenopathy. Supple, full range of motion without nuchal rigidity, or vertebral point tenderness. No Meningismus. Chest/axilla: Normal chest wall appearance and motion. Nontender with no deformity. No lesions are appreciated. Cardiovascular: Regular rate and rhythm with a normal S1 and S2. No gallops, murmurs, or rubs. Normal PMI, no JVD. No pulse deficits. Respiratory: Lungs have equal breath sounds bilaterally, clear to auscultation and percussion. No rales, rhonchi or wheezes noted. No increased work of breathing, no retractions or nasal flaring. Abdomen/GI: Soft, non-tender, with normal bowel sounds. No distension or tympany. No guarding or rebound. No evidence of tenderness throughout. Back: No spinal tenderness. No costovertebral tenderness. Full range of motion. Skin: Warm, dry with normal turgor. Normal color with no rashes, no lesions, and no evidence of cellulitis. MS/ Extremity: Pulses equal, no cyanosis. Neurovascular intact. Full, normal range of motion., bilateral aka Neuro: Awake and alert, GCS 15, oriented to person, place, time, and situation. Cranial nerves II-XII grossly intact. Motor strength 5/5 in all extremities. Sensory grossly intact. Cerebellar exam normal. Normal gait. Psych: Awake, alert, with orientation to person, place and time. Behavior, mood, and affect are within normal limits. 01:54 Musculoskeletal/extremity: ROM: no acute changes, intact in all extremities, full active range of motion, full passive range of motion, Circulation is intact in all extremities. Sensation intact. Compartment Syndrome exam of affected extremity: is normal. Weight bearing: able to fully bear weight, without difficulty, DVT Exam: No signs of deep vein thrombosis. no pain, no swelling, no tenderness, negative Homans' sign noted on exam, no appreciated bluish discoloration, no erythema, no increased warmth, Vital Signs: 00:36 BP 153 / 102; Pulse 95; Resp 18; Temp 98.9(O); Pulse Ox 97% on R/A; Weight 99.79 kg; rg5 Height 5 ft. 7 in. ; Pain 4/10; 01:45 BP 156 / 64; Pulse 93; Resp 19; Temp 98.3(O); Pulse Ox 97% on R/A; rg5 00:36 Body Mass Index 34.46 (99.79 kg, 170.18 cm) rg5 00:36 Pain Scale: Adult rg5 Tryon Coma Score: 00:36 Eye Response: spontaneous(4). Motor Response: obeys commands(6). Verbal Response: rg5 oriented(5). Total: 15. MDM: 00:10 Medical Screening Exam initiated vaibhav 01:57 Differential diagnosis: bronchitis, flu, URI. Antibiotic administration: The patient is [facility] discharged and will get outpatient antibiotics, Zithromax. Data reviewed: vital signs, nurses notes, lab test result(s). Consideration of Admission/Observation Escalation of care including admission/observation considered. I considered the following discharge prescriptions or medication management in the emergency department Medications were administered in the Emergency Department. See MAR. Independent interpretation of the following test(s) in the Emergency Department X-Ray: My interpretation is CXR. Test considered but Not performed: Labs: NO CBC, NO COMP MET. 10/02 00:11 Order name: Flu; Complete Time: 01:49 vaibhav 10/02 00:11 Order name: SARS RAPID; Complete Time: 01:49 vaibhav 10/02 00:11 Order name: Strep; Complete Time: 01:49 vaibhav 10/02 01:49 Order name: Throat Culture EDMS 10/02 00:11 Order name: Chest Pa And Lat (2 Views) XRAY vaibhav Administered Medications: 01:55 Drug: Aspirin PO Chewable Tablet 81 mg PO once Route: PO; rg5 02:09 Follow up: Response: No adverse reaction rg5 01:55 Drug: AZITHromycin PO 500 mg PO once Route: PO; rg5 02:11 Follow up: Response: No adverse reaction rg5 01:55 Drug: Famotidine PO 40 mg PO once Route: PO; rg5 02:09 Follow up: Response: No adverse reaction rg5 Disposition Summary: 10/02/24 02:02 Discharge Ordered Notes: Location: Home [facility] Problem: new vaibhav Symptoms: have improved vaibhav Condition: Stable [facility] Diagnosis - SARS-associated coronavirus as the cause of diseases classified elsewhere vaibhav - Fever, unspecified vaibhav - Acute upper respiratory infection, unspecified vaibhav Followup: vaibhav - With: Private Physician - When: 1 - 2 days - Reason: Recheck today's complaints, Continuance of care, Re-evaluation by your physician Followup: [facility] - With: Adrian Ren MD - When: 2 - 3 days - Reason: Recheck today's complaints, Re-evaluation by your physician Discharge Instructions: - Discharge Summary Sheet vaibhav - Fever, Adult vaibhav - Upper Respiratory Infection, Adult vaibhav - Cool Mist Vaporizer vaibhav - Upper Respiratory Infection, Adult, Lkwa-rg-Rrid vaibhav - Cough, Adult, Fugr-co-Wuvo vaibhav - Aspirin and Your Heart [facility] - Cough, Adult [facility] - COVID-19 [facility] - 10 Things You Can Do to Manage Your COVID-19 Symptoms at Home - [facility] (03/17/2021) [facility] - Symptoms of COVID-19 - [facility] (11/21/2021) [facility] - COVID-19: What to Do If You Are Sick - [facility] (11/21/2021) [facility] Forms: - Medication Reconciliation Form [facility] - Antibiotic Education vaibhav - Prescription Opioid Use [facility] - Patient Portal Instructions [facility] - Leadership Thank You Letter [facility] Prescriptions: - Paxlovid 300 mg (150 mg x 2)-100 mg Oral Tablet, Dose Pack - take 3 tablet ORAL route 2 times per day take TWO 150 mg tablets of vaibhav nirmatrelvir with ONE 100 mg tablet of ritonavir twice daily for 5 days; 18 capsule; Refills: 0, Product Selection Permitted - Pepcid 20 mg Oral tablet - take 1 tablet ORAL route every 12 hours for 21 days; 42 tablet; Refills: 0, vaibhav Product Selection Permitted - Tessalon Perles 100 mg Oral capsule - take 2 capsule ORAL route every 8 hours As needed; 30 capsule; Refills: 0, vaibhav Product Selection Permitted - Zithromax Z-Erasmo 250 mg Oral Tablet - take 1 tablet ORAL route as directed for 5 days Day 1 - take two (2) tablets vaibhav one time. Day 2, 3, 4 , 5 take one (1) tablet once daily.; 6 tablet; Refills: 0, Product Selection Permitted Signatures: Dispatcher [employer] EDMS Wagner Rivas MD MD cha Gallardo, Rommel, RN RN rg5 Corrections: (The following items were deleted from the chart) 00:12 00:12 Influenza Screen (A \T\ B)+BA.LAB.BRZ ordered. EDMS EDMS 00:12 00:12 SARS-COV-2 Antigen Rapid+I.LAB.BRZ ordered. EDMS EDMS 00:12 00:12 Group A Streptococcus Rapid Sc+BA.LAB.BRZ ordered. EDMS EDMS 01:00 00:36 PMHx: Hypertension; rg5 rg5 01:00 00:36 PMHx: Hypothyroidism; rg5 rg5 01:00 00:36 PMHx: Gastric Reflux; rg5 rg5 01:00 00:36 PMHx: depressive disorder; rg5 rg5 01:00 00:36 PMHx: Hypercholesterolemia; rg5 rg5 01:00 00:36 PSHx: section; rg5 rg5 01:00 00:36 PSHx: hysterectomy; rg5 rg5 01:00 00:36 PSHx: section; rg5 rg5
--- NOTE | 2024-10-02 02:03 | ER ---
Nurse's Notes [facility] Name: Sunni Nava Age: 74 yrs Sex: Female : 1950 Arrival Date: 10/02/2024 Time: 00:00 Bed 13 Private MD: Diagnosis: SARS-associated coronavirus as the cause of diseases classified elsewhere;Fever, unspecified;Acute upper respiratory infection, unspecified Presentation: 10/02 00:36 Chief complaint: Patient states: had a cough, fever, sore throat and body pains since rg5 saturday. 00:36 Coronavirus screen: Vaccine status: Patient reports receiving the 1st dose of the Covid rg5 vaccine. Client denies travel out of the [place] in the last 14 days. Ebola Screen: Patient negative for fever greater than or equal to 101.5 degrees Fahrenheit, and additional compatible Ebola Virus Disease symptoms Patient denies exposure to infectious person. Patient denies travel to an Ebola-affected area in the 21 days before illness onset. Initial Sepsis Screen: Does the patient meet any 2 criteria? No. Patient's initial sepsis screen is negative. Does the patient have a suspected source of infection? No. Patient's initial sepsis screen is negative. Risk Assessment: Do you want to hurt yourself or someone else? Patient reports no desire to harm self or others. Onset of symptoms was September 25, 2024. 00:36 Method Of Arrival: Ambulatory rg5 00:36 Acuity: KIN 4 rg5 Triage Assessment: 00:36 General: Appears in no apparent distress. Behavior is calm, cooperative, Reports chills rg5 for >3 days, fever for > 3 days, feeling ill for > 3 days. Pain: Complains of pain in right leg and left leg Quality of pain is described as aching. EENT: No deficits noted. Neuro: Level of Consciousness is awake, alert, Oriented to person, place, time, situation. Cardiovascular: Denies chest pain, Heart tones S1 S2 Patient's skin is warm and dry. Respiratory: Reports cough that is Airway is patent Trachea midline Respiratory effort is even, unlabored, Respiratory pattern is regular, symmetrical. GI: Abdomen is round non-distended, Abd is soft and non tender. : No signs and/or symptoms were reported regarding the genitourinary system. Derm: Skin is intact, Skin is clammy, Skin is normal, Skin temperature is warm. Musculoskeletal: Circulation, motion, and sensation intact. Range of motion: intact in all extremities. Historical: - Allergies: 00:36 No Known Allergies; rg5 - Immunization history:: Adult Immunizations up to date. - Infectious Disease History:: Denies. - Social history:: Smoking status: Patient denies any tobacco usage or history of. - Family history:: not pertinent. Screenin:[address] [facility] ED Fall Risk Assessment (Adult) History of falling in the last 3 months, rg5 including since admission No falls in past 3 months (0 pts) Confusion or Disorientation No (0 pts) Intoxicated or Sedated No (0 pts) Impaired Gait No (0 pts) Mobility Assist Device Used No (0 pt) Altered Elimination No (0 pt) Score/Fall Risk Level 0 - 2 = Low Risk Oriented to surroundings, Maintained a safe environment, Used ambulatory aids as needed (educated on \T\ assisted with). Abuse screen: Denies threats or abuse. Nutritional screening: No deficits noted. Tuberculosis screening: No symptoms or risk factors identified. Assessment: 00:36 Reassessment: see triage assessmnet. rg5 01:45 Reassessment: Patient and/or family updated on plan of care and expected duration. Pain rg5 level reassessed. Patient is alert, oriented x 3, equal unlabored respirations, skin warm/dry/pink. 01:45 General: Appears in no apparent distress. Behavior is calm, cooperative, appropriate rg5 for age. Respiratory: Airway is patent Trachea midline Respiratory effort is even, unlabored, Respiratory pattern is regular, symmetrical. Vital Signs: 00:36 BP 153 / 102; Pulse 95; Resp 18; Temp 98.9(O); Pulse Ox 97% on R/A; Weight 99.79 kg; rg5 Height 5 ft. 7 in. ; Pain 4/10; 01:45 BP 156 / 64; Pulse 93; Resp 19; Temp 98.3(O); Pulse Ox 97% on R/A; rg5 00:36 Body Mass Index 34.46 (99.79 kg, 170.18 cm) rg5 00:36 Pain Scale: Adult rg5 Jonathan Coma Score: 00:36 Eye Response: spontaneous(4). Motor Response: obeys commands(6). Verbal Response: rg5 oriented(5). Total: 15. ED Course: 00:02 Patient arrived in ED. jj6 00:10 Wagner Rivas MD is Attending Physician. vaibhav 00:34 Wagner Thomas PA is PHCP. cp 00:36 Arm band placed on. rg5 00:36 Patient has correct armband on for positive identification. Placed in gown. Call light rg5 in reach. Side rails up X 1. 00:36 No provider procedures requiring assistance completed. rg5 00:39 Tom Tellez, SHERON is Primary Nurse. rg5 00:54 Chest Pa And Lat (2 Views) XRAY In Process Unspecified. EDMS 00:57 Triage completed. rg5 01:45 Provided Education on: post er care. rg5 01:45 Patient did not have IV access during this emergency room visit. rg5 01:59 Adrian Ren MD is Referral Physician. vaibhav Administered Medications: 01:55 Drug: Aspirin PO Chewable Tablet 81 mg PO once Route: PO; rg5 02:09 Follow up: Response: No adverse reaction rg5 01:55 Drug: AZITHromycin PO 500 mg PO once Route: PO; rg5 02:11 Follow up: Response: No adverse reaction rg5 01:55 Drug: Famotidine PO 40 mg PO once Route: PO; rg5 02:09 Follow up: Response: No adverse reaction rg5 Medication: 00:36 VIS not applicable for this client. rg5 Outcome: 02:02 Discharge ordered by . vaibhav 02:10 Discharged to home ambulatory, rg5 02:10 Condition: stable 02:10 Discharge instructions given to patient, Instructed on discharge instructions, Demonstrated understanding of instructions, follow-up care, medications, Prescriptions given X 4, 02:10 Patient left the ED. rg5 Signatures: Dispatcher [employer] EDNM Wagner Rivas MD MD cha Page, Corey, PA PA cp Jeffries, Jennifer jj6 Tom Tellez, SHERON RN rg5 Corrections: (The following items were deleted from the chart) 01:00 00:36 PMHx: Hypertension; rg5 rg5 01:00 00:36 PMHx: Hypothyroidism; rg5 rg5 01:00 00:36 PMHx: Gastric Reflux; rg5 rg5 01:00 00:36 PMHx: depressive disorder; rg5 rg5 01:00 00:36 PMHx: Hypercholesterolemia; rg5 rg5 01:00 00:36 PSHx: section; rg5 rg5 01: 00:36 PSHx: hysterectomy; rg5 rg5 01:00 00:36 PSHx: section; rg5 rg5
--- NOTE | 2024-10-02 06:01 | RAD REPORT ---
PROCEDURE: XR Chest, 2 Views CLINICAL INDICATION: The patient is 74 years old and is Female; Cough. TECHNIQUE: Frontal and lateral views of the chest. COMPARISON: None. FINDINGS: LUNGS: Unremarkable No consolidation. PLEURAL SPACE: No appreciable pleural effusion or pneumothorax. HEART: Unremarkable No cardiomegaly. MEDIASTINUM: Prominence of the cardiomediastinal silhouette, likely exaggerated secondary to portab le technique and patient body habitus. BONES/JOINTS: Multilevel spondylosis. IMPRESSION: No acute findings in the chest. Electronically signed by: Zeus Amaral MD 10/02/2024 01:46 AM [facility] Due to temporary technical issues with the [employer] reporting system, reports are being romain d by the in-house radiologist without review as a courtesy to ensure prompt reporting the interpreting radiologist is fully responsible for the content of the report. Transcribed Date/Time: 10/02/2024 6:00 AM
[2024-10-02 08:45] VITALS: O2SAT 97
[2024-10-02 08:46] VITALS: BP 156/64; TEMP 98.3
== END 2024-10-02 02:10 | disposition home or self-care (01) ==
LOC: ER
DX: U07.1 COVID-19 (principal); B97.21 SARS-associated coronavirus as the cause of diseases classified elsewhere; R50.9 Fever, unspecified; J06.9 Acute upper respiratory infection, unspecified
CPT/HCPCS: 36415; 71046; 87070; 87081; 87804; 87811; 99283

== ENCOUNTER 2024-11-10 16:00 | Emergency (ER) | payer OTHER ==
--- OUTSIDE RECORDS SUMMARY | 2024-11-10 16:07 | XMS REPORT | Continuity of Care Document ---
Author Name Unknown Address [address] [place] [address] Organization [facility] Address [address] [place] [address] Care Team Providers Care Can Line Operator Name Role Phone [email or web address] Attending Clinician Unavaila ble RADIOLOGY Attending Clinician Unavailable Bart Horner MD Attending Clinician [phone] Leidy Garcia Attending Clinician [phone] Only, Adc Test Attending Clinician Unavailable Darren Diaz MD Attending Clinician [phone] Doctor Unassigned, Lequire Attending Clinician U mario Conley RN, Chiqui Attending Clinician Unavailable VENESSA CARRERO Attending Clinician Unavailabl LEIDY Castillo Attending Clinician Unavailable [email or web address]_Kim Admitting Clinician Unavaila irvin Payers Payer Name Policy Type Policy Number Effective Date Expirati on Date Source [facility] DUAL COMP HMO D SNP [id number] 2020 00:00:00 Allergies, Adverse Reactions, Alerts Allergy Name Allergy Type Status Severity Reaction(s) Onset Date Inactive Date Treating Clinician Comments Source NO KNOWN ALLERGIE S Drug Class Active [facility] Social History Social Habit Start Date Stop Date Quantity Comments Source History SDOH Alcohol Std Drinks [facility] History SDOH Alcohol Binge [facility] Exposure to SARS-CoV-2 (event) Not sure [facility] Sex Assigned At [facility] Alcohol intake 2020-03-16 00:00:00 2020-03-16 00:00:00 Lifetime non-drinker (finding) [facility] History SDOH Alcohol Frequency 2020-03-16 00:00:00 2020-03-16 00:00:00 1 [facility] Tobacco use and exposure 2020-03-16 00:00:00 2020-03-16 00:00:00 Never used [facility] Smoking Status Start Date Stop Date Source Unknown if [facility] Medications Ordered Medication Name Filled Medication Name Start Date Stop Date Current Medication? Ordering Clinician Indication Dosage Frequency Signature (SIG) Comments Components Source GABAPENTIN 300 mg capsule 2019-09 00:00: 00 Yes [id number] TAKE 1 CAPSULE BY MOUTH 3 TIMES A DAY [facility] GABAPENTIN 300 mg capsule 2019-09 00:00: 00 07-19 00:00 :00 No [id number] TAKE 1 CAPSULE BY MOUTH 3 TIMES A DAY [facility] gabapentin (NEURONTIN) 300 mg capsule 03-16 00:00: 00 04-16 04:59 :00 No [id number] 300mg Take 1 capsule by mouth 3 (three) times daily for 30 days. [facility] citalopram 40 mg tablet 03-08 00:00: 00 Yes [facility] losartan 50 mg tablet 05 00:00: 00 Yes 50mg Take 50 mg by mouth daily. [facility] atorvastati n 40 mg tablet 01-16 00:00: 00 Yes 40mg Take 40 mg by mouth daily. [facility] levothyroxi ne 50 mcg tablet 30 00:00: 00 Yes 50ug Take 50 mcg by mouth. [facility] Vital Signs Vital Name Observation Time Observation Value Comments S marivel Systolic blood pressure 2020-03-16 19:25:00 115 mm[Hg] [facility] Diastolic blood pressure 2020-03-16 19:25:00 63 mm[Hg] [facility] Heart rate 2020-03-16 19:25:00 74 /min [facility] Body height 2020-03-16 19:25:00 161.3 cm [facility] Body weight 2020-03-16 19:25:00 92.806 kg [facility] BMI 2020-03-16 19:25:00 35.67 kg/m2 [facility] Systolic blood pressure 2020-03-16 19:25:00 115 mm[Hg] [place] [facility] Diastolic blood pressure 2020-03-16 19:25:00 63 mm[Hg] [facility] Heart rate 2020-03-16 19:25:00 74 /min [facility] Body height 2020-03-16 19:25:00 161.3 cm [facility] Body weight 2020-03-16 19:25:00 92.806 kg [facility] BMI 2020-03-16 19:25:00 35.67 kg/m2 [facility] Procedures Procedure Date / Time Performed Performing Clinicia n Source ASSIGNMENT OF BENEFITS 2020-07-14 18:06:32 Docto r Unassigned, Lequire [facility] ASSIGNMENT OF BENEFITS 2020-03-16 19:19:42 Docto r Unassigned, Lequire [facility] Encounters Start Date/Time End Date/Time Encounter Type Admission Type Attending Clinicians Care Facility Care Department Encounter ID Source 2023-06-28 00:00:00 2023-06-28 00:00:00 Outpatient [email or web address]_S [facility] [id number] [facility] 2021-02-09 00:00:00 2021-02-09 00:00:00 Outpatient R [facility] [id number] [facility] 2021-02-02 00:00:00 2021-02-02 00:00:00 Outpatient R RADIOLOGY [facility] [id number] [facility] 2020-07-18 00:00:00 2020-07-18 00:00:00 Letter (Out) Bart Horner [facility] One 1.2.840.114 350.1.13.10 4.2.7.2.686 [id number] 2020-07-18 00:00:00 2020-07-18 00:00:00 Letter (Out) Bart Horner [facility] One 1.2.840.114 350.1.13.10 4.2.7.2.686 [id number] [facility] 2020-07-16 00:00:00 2020-07-16 00:00:00 Hawk Giraldo [facility] 1.2.840.114 350.1.13.10 4.2.7.2.686 [id number] 2020-07-16 00:00:00 2020-07-16 00:00:00 Hawk Giraldo [facility] 1.2.840.114 350.1.13.10 4.2.7.2.686 [id number] [facility] 2020-07-14 12:09:44 2020-07-14 12:24:44 Laboratory Only Only, Adc Test [facility] 1.2.840.114 350.1.13.10 4.2.7.2.686 [id number] 2020-07-14 12:09:44 2020-07-14 12:24:44 Laboratory Only Only, Adc Test Diaz Darren A [facility] 1.2.840.114 350.1.13.10 4.2.7.2.686 [id number] [facility] 2020-07-14 12:00:00 2020-07-14 12:00:00 Outpatient R [facility] [id number] [facility] 2020-07-14 00:00:00 2020-07-14 00:00:00 Orders Only Doctor Unassigned, Lequire [facility] 1.2.840.114 350.1.13.10 4.2.7.2.686 [id number] 2020-07-14 00:00:00 2020-07-14 00:00:00 Letter (Out) Yael [facility] 1.2.840.114 350.1.13.10 4.2.7.2.686 [id number] 2020-07-14 00:00:00 2020-07-14 00:00:00 Orders Only Doctor Unassigned, Lequire [facility] 1.2.840.114 350.1.13.10 4.2.7.2.686 [id number] [facility] 2020-07-14 00:00:00 2020-07-14 00:00:00 Letter (Out) Yael [facility] 1.2.840.114 350.1.13.10 4.2.7.2.686 [id number] [facility] 2020-07-06 00:00:00 2020-07-06 00:00:00 Hawk Giraldo [facility] 1.2.840.114 350.1.13.10 4.2.7.2.686 [id number] 2020-07-06 00:00:00 2020-07-06 00:00:00 Hawk Giraldo Leidy [facility] [place] 1.2.840.114 350.1.13.10 4.2.7.2.686 [id number] [facility] 2020-06-28 09:00:00 2020-06-28 09:00:00 Outpatient VENESSA ECHEVERRIA [facility] [id number] [facility] 2020-03-16 14:21:17 2020-05-02 12:54:12 Office Visit Leidy Giraldo [facility] [place] 1.2.840.114 350.1.13.10 4.2.7.2.686 [id number] [facility] 2020-03-16 14:21:17 2020-05-02 12:54:12 Office Visit Leidy Giraldo [facility] db [place] 1..840.114 350.1.13.10 4.2.7.2.686 [id number] 2020-03-16 14:45:00 2020-03-16 14:45:00 Outpatient R LEIDY GIRALDO [facility] [id number] [facility] 2020-03-16 00:00:00 2020-03-16 00:00:00 Orders Only Doctor Unassigned, Lequire [facility] 1..840.114 350.1.13.10 4.2.7.2.686 [id number] [facility]
[2024-11-10 16:47] LABS: Influenza A Ag Negative; Influenza B Ag Negative; SARS-CoV-2 Antigen Rapid Res Negative (Negative)
--- NOTE | 2024-11-10 17:32 | RAD REPORT ---
EXAMINATION: ONE VIEW CHEST XR CLINICAL INDICATION: COUGH TECHNIQUE: Frontal chest projection is submitted. Examination is limited by patient positioning and t echnique. COMPARISON: 10/02/2024 FINDINGS: The lungs are well inflated and clear. The heart is upper limit of normal in size. No displaced fract ures identified. IMPRESSION: No acute intrathoracic abnormalities.
--- NOTE | 2024-11-10 18:38 | EDPHYS ---
Physician Documentation [facility] Name: Sunni Nava Age: 74 yrs Sex: Female : 1950 Arrival Date: 11/10/2024 Time: 16:00 Bed IW2 Private MD: ED Physician Ramiro Cotton HPI: 11/10 23:35 This 74 yrs old Female presents to ER via Ambulatory with complaints of Cough. kb 23:35 Pt is a 74 year old female who presents for cough that started 5 days ago. Denies kb fever, congestion, runny nose, n/v/d, shortness of breath. Historical: - Allergies: 16:24 No Known Allergies; ap3 - Immunization history:: Client reports receiving the 2nd dose of the Covid vaccine. - Infectious Disease History:: Denies. - Social history:: Smoking status: Patient denies any tobacco usage or history of. ROS: 23:31 Constitutional: As per HPI kb Exam: 23:31 Constitutional: This is a well developed, well nourished patient who is awake, alert, kb and in no acute distress. Head/Face: Normocephalic, atraumatic. ENT: Moist Mucous membranes Cardiovascular: Regular rate Respiratory: Respirations even and unlabored. No increased work of breathing. Talking in full sentences Abdomen/GI: Soft, non-tender. No distention Skin: Warm, dry with normal turgor. Normal color. MS/ Extremity: Pulses equal, no cyanosis. Neurovascular intact. Full, normal range of motion. Neuro: Awake and alert, GCS 15, oriented to person, place, time, and situation. Vital Signs: 16:22 BP 136 / 73; Pulse 68; Resp 18; Temp 97.9; Pulse Ox 95% ; Weight 97.52 kg; ap3 MDM: 16:04 Medical Screening Exam initiated kb 23:31 Differential Diagnosis: Bronchitis Influenza Upper Respiratory Infection Pneumonia. kb Data reviewed: vital signs, nurses notes. I considered the following discharge prescriptions or medication management in the emergency department I discussed and recommended Over The Counter medications, Antibiotics: At this time antibiotics are not recommended, Antivirals: At this time, antivirals are not recommended. Counseling: I had a detailed discussion with the patient and/or guardian regarding the historical points, exam findings, and any diagnostic results supporting the discharge/admit diagnosis, lab results, radiology results, the need for outpatient follow up, a family practitioner, to return to the emergency department if symptoms worsen or persist or if there are any questions or concerns that arise at home. 11/10 16:24 Order name: COVID-19 Ag + Flu A+B Ag; Complete Time: 16:55 kb 11/10 16:24 Order name: Chest Single View XRAY; Complete Time: 17:33 kb Administered Medications: No medications were administered Disposition: 11/11 07:21 Co-signature as Attending Physician, Ramiro Cotton MD I reviewed the patient's care rn provided by the Advanced Practice Provider and agree with the diagnosis and treatment plan. Disposition Summary: 11/10/24 18:38 Discharge Ordered Notes: Location: Home kb Condition: Stable kb Diagnosis - Cough kb Followup: kb - With: Emergency Department - When: As needed - Reason: Worsening of condition Followup: kb - With: Private Physician - When: 2 - 3 days - Reason: Recheck today's complaints, Continuance of care, Re-evaluation by your physician Discharge Instructions: - Discharge Summary Sheet kb - Cough, Adult, [id number] kb Forms: - Medication Reconciliation Form kb - Antibiotic Education kb - Prescription Opioid Use kb - Patient Portal Instructions kb - Leadership Thank You Letter kb Prescriptions: - Tessalon Perles 100 mg Oral Capsule - take 1 capsule ORAL route every 8 hours As needed; 15 capsule; Refills: 0, kb Product Selection Permitted Signatures: Dispatcher [employer] Radha Simpson, YARN CONDITIONER-C YARN CONDITIONER-Ckb Ramiro Cotton MD MD rn Prokisch, Amanda, RN RN ap3
--- NOTE | 2024-11-10 18:38 | ER ---
Nurse's Notes [facility] Name: Sunni Nava Age: 74 yrs Sex: Female : 1950 Arrival Date: 11/10/2024 Time: 16:00 Bed IW2 Private MD: Diagnosis: Cough Presentation: 11/10 16:22 Chief complaint: Patient states: she has been having a cough since 11/05/24. .patient ap3 denies any nausea, vomiting or diarrhea. Coronavirus screen: At this time, the client does not indicate any symptoms associated with coronavirus-19. Ebola Screen: No symptoms or risks identified at this time. Initial Sepsis Screen: Does the patient meet any 2 criteria? No. Patient's initial sepsis screen is negative. Does the patient have a suspected source of infection? No. Patient's initial sepsis screen is negative. Risk Assessment: Do you want to hurt yourself or someone else? Patient reports no desire to harm self or others. Onset of symptoms was November 05, 2024. 16:22 Method Of Arrival: Ambulatory ap3 16:22 Acuity: KIN 4 ap3 Triage Assessment: 16:24 General: Appears in no apparent distress. Behavior is calm, cooperative, appropriate ap3 for age. Pain: Denies pain. Neuro: Level of Consciousness is awake, alert, obeys commands, Oriented to person, place, time, situation. Cardiovascular: Patient's skin is warm and dry. Respiratory: Reports cough that is Airway is patent Respiratory effort is even, unlabored, Respiratory pattern is regular, symmetrical. Historical: - Allergies: 16:24 No Known Allergies; ap3 - Immunization history:: Client reports receiving the 2nd dose of the Covid vaccine. - Infectious Disease History:: Denies. - Social history:: Smoking status: Patient denies any tobacco usage or history of. Screenin:24 [facility] ED Fall Risk Assessment (Adult) History of falling in the last 3 months, ap3 including since admission No falls in past 3 months (0 pts) Confusion or Disorientation No (0 pts) Intoxicated or Sedated No (0 pts) Impaired Gait No (0 pts) Mobility Assist Device Used No (0 pt) Altered Elimination No (0 pt) Score/Fall Risk Level 0 - 2 = Low Risk Oriented to surroundings, Maintained a safe environment, Educated pt \T\ family on fall prevention, incl call for assistance when getting out of bed, Assessed \T\ reinforced patient's understanding of fall precautions, Hourly rounding (assess needs \T\ fall precautionary measures) done, Used ambulatory aids as needed (educated on \T\ assisted with). Abuse screen: Denies threats or abuse. Nutritional screening: No deficits noted. Tuberculosis screening: No symptoms or risk factors identified. Vital Signs: 16:22 BP 136 / 73; Pulse 68; Resp 18; Temp 97.9; Pulse Ox 95% ; Weight 97.52 kg; ap3 ED Course: 16:03 Patient arrived in ED. mr 16:04 Radha Fatima FNP-C [facility]. kb 16:04 Ramiro Cotton MD is Attending Physician. kb 16:24 Triage completed. ap3 16:25 Arm band placed on left wrist. ap3 16:27 COVID-19 Ag + Flu A+B Ag Sent. ap3 17:23 Chest Single View XRAY In Process Unspecified. EDMS 18:41 No provider procedures requiring assistance completed. Patient did not have IV access ap3 during this emergency room visit. 18:42 Patient has correct armband on for positive identification. ap3 18:42 Provided Education on: discharge instructions. ap3 Administered Medications: No medications were administered Medication: 18:42 VIS not applicable for this client. ap3 Outcome: 18:38 Discharge ordered by . kb 18:41 Discharged to home ambulatory, ap3 18:41 Condition: good 18:41 Discharge instructions given to patient, Instructed on discharge instructions, follow up and referral plans. medication usage, Demonstrated understanding of instructions, follow-up care, medications, Prescriptions given X 1, 18:42 Patient left the ED. ap3 Signatures: Dispatcher [employer] EDKS Radha Fatima FNP-C FNP-Misti Galloway, Reg Reg Archana Aguilar, RN RN ap3
== END 2024-11-10 18:42 | disposition home or self-care (01) ==
LOC: ER 16:00
DX: R05.9 Cough, unspecified (principal); Z11.52 Encounter for screening for COVID-19
CPT/HCPCS: 36415; 71045; 87428; 99283

== ENCOUNTER 2025-04-30 13:13 | Emergency (ER) | payer OTHER ==
--- OUTSIDE RECORDS SUMMARY | 2025-04-30 13:17 | XMS REPORT | Continuity of Care Document ---
Author Name Unknown Address [address] [place] [address] Organization [facility] [place] Address [address] [place] [address] Care Team Providers Care Engineering Surveyor Name Role Phone RADIOLOGY Attending Clinician Unavailable Bart Horner MD Attending Clinician [phone] Khanh Garcia Attending Clinician [phone] Only, Adc Test Attending Clinician Unavailable Darren Diaz MD Attending Clinician [phone] Doctor Unassigned, [place] Attending Clinician U mario Conley RN, Chiqui Attending Clinician Unavailable VENESSA CARRERO Attending Clinician UnavailKHANH Kim Attending Clinician Unavailable Payers Payer Name Policy Type Policy Number Effective Date Expirati on Date Source [facility] DUAL COMP HMO D SNP [id number] 2020 00:00:00 Allergies, Adverse Reactions, Alerts Allergy Name Allergy Type Status Severity Reaction(s) Onset Date Inactive Date Treating Clinician Comments Source NO KNOWN ALLERGIE S Drug Class Active [facility] Social History Social Habit Start Date Stop Date Quantity Comments Source History SDOH Alcohol Std Drinks [facility] History SDOH Alcohol Binge [facility] Exposure to SARS-CoV-2 (event) Not sure [facility] Sex Assigned At [facility] Alcohol intake 2020-03-16 00:00:00 2020-03-16 00:00:00 Lifetime non-drinker (finding) [facility] History SDOH Alcohol Frequency 2020-03-16 00:00:00 2020-03-16 00:00:00 1 [facility] Tobacco use and exposure 2020-03-16 00:00:00 2020-03-16 00:00:00 Never used [facility] Smoking Status Start Date Stop Date Source Unknown if ever smoked [facility] Never smoker [facility] Medications Ordered Medication Name Filled Medication Name Start Date Stop Date Current Medication? Ordering Clinician Indication Dosage Frequency Signature (SIG) Comments Components Source GABAPENTIN 300 mg capsule 2019-09 00:00: 00 Yes [id number] TAKE 1 CAPSULE BY MOUTH 3 TIMES A DAY [facility] GABAPENTIN 300 mg capsule 2019-09 00:00: 00 07-19 00:00 :00 No [id number] TAKE 1 CAPSULE BY MOUTH 3 TIMES A DAY [facility] gabapentin (NEURONTIN) 300 mg capsule 03-16 00:00: 00 04-16 04:59 :00 No [id number] 300mg Take 1 capsule by mouth 3 (three) times daily for 30 days. [facility] citalopram 40 mg tablet 03-08 00:00: 00 Yes [facility] losartan 50 mg tablet 02-04 00:00: 00 Yes 50mg Take 50 mg by mouth daily. [facility] atorvastati n 40 mg tablet 01-16 00:00: 00 Yes 40mg Take 40 mg by mouth daily. [facility] levothyroxi ne 50 mcg tablet 30 00:00: 00 Yes 50ug Take 50 mcg by mouth. [facility] Vital Signs Vital Name Observation Time Observation Value Comments S marivel Systolic blood pressure 2020-03-16 19:25:00 115 mm[Hg] [facility] Diastolic blood pressure 2020-03-16 19:25:00 63 mm[Hg] [facility] Heart rate 2020-03-16 19:25:00 74 /min [facility] Body height 2020-03-16 19:25:00 161.3 cm [facility] Body weight 2020-03-16 19:25:00 92.806 kg [facility] BMI 2020-03-16 19:25:00 35.67 kg/m2 [facility] Systolic blood pressure 2020-03-16 19:25:00 115 mm[Hg] [facility] Diastolic blood pressure 2020-03-16 19:25:00 63 mm[Hg] [facility] Heart rate 2020-03-16 19:25:00 74 /min [facility] Body height 2020-03-16 19:25:00 161.3 cm [facility] Body weight 2020-03-16 19:25:00 92.806 kg [facility] BMI 2020-03-16 19:25:00 35.67 kg/m2 [facility] Procedures Procedure Date / Time Performed Performing Clinicia n Source ASSIGNMENT OF BENEFITS 2020-07-14 18:06:32 Docto r Unassigned, [place] [facility] ASSIGNMENT OF BENEFITS 2020-03-16 19:19:42 Docto r Unassigned, [place] [facility] Encounters Start Date/Time End Date/Time Encounter Type Admission Type Attending Clinicians Care Facility Care Department Encounter ID Source 2021-02-09 00:00:00 2021-02-09 00:00:00 Outpatient R [facility] [id number] [facility] 2021-02-02 00:00:00 2021-02-02 00:00:00 Outpatient R RADIOLOGY [facility] [id number] [facility] 2020-07-18 00:00:00 2020-07-18 00:00:00 Letter (Out) Bart Horner [facility] .840.114 350.1.13.10 4.2.7.2.686 [id number] 2020-07-18 00:00:00 2020-07-18 00:00:00 Letter (Out) Bart Horner [facility] ..840.114 350.1.13.10 4.2.7.2.686 [id number] [facility] 2020-07-16 00:00:00 2020-07-16 [facility] [place] [id number] 350.1.13.10 4.2.7.2.686 [id number] 2020-07-16 00:00:00 2020-07-16 00:00[facility] [place] [id number] 350.1.13.10 4.2.7.2.686 [id number] [facility] 2020-07-14 12:09:44 2020-07-14 12:24:44 Laboratory Only Only, Adc Test [facility] [id number] 350.1.13.10 4.2.7.2.686 [id number] 2020-07-14 12:09:44 2020-07-14 12:24:44 Laboratory Only Only, Adc Test Darren Diaz [facility] [id number] 350.1.13.10 4.2.7.2.686 [id number] [facility] 2020-07-14 12:00:00 2020-07-14 12:00:00 Outpatient R [facility] [id number] [facility] 2020-07-14 00:00:00 2020-07-14 00:00:00 Orders Only Doctor Unassigned, [place] [facility] 1.2.840.114 350.1.13.10 4.2.7.2.686 [id number] 2020-07-14 00:00:00 2020-07-14 00:00:00 Letter (Out) Chiqui Conley [facility] 1.2.840.114 350.1.13.10 4.2.7.2.686 [id number] 2020-07-14 00:00:00 2020-07-14 00:00:00 Orders Only Doctor Unassigned, [place] [facility] 1.2.840.114 350.1.13.10 4.2.7.2.686 [id number] [facility] 2020-07-14 00:00:00 2020-07-14 00:00:00 Letter (Out) Chiqui Conley [facility] 1.2.840.114 350.1.13.10 4.2.7.2.686 [id number] [facility] 2020-07-06 00:00:00 2020-07-06 00:00:00 Germainejacy Giraldo [facility] [place] 1.2.840.114 350.1.13.10 4.2.7.2.686 [id number] 2020-07-06 00:00:00 2020-07-06 00:00:00 Hawk Giraldo [facility] [place] 1.2.840.114 350.1.13.10 4.2.7.2.686 [id number] [facility] 2020-06-28 09:00:00 2020-06-28 09:00:00 Outpatient VENESSA ECHEVERRIA [facility] [id number] [facility] 2020-03-16 14:21:17 2020-05-02 12:54:12 Office Visit Kristal [facility] [place] 1.2.840.114 350.1.13.10 4.2.7.2.686 [id number] 2020-03-16 14:21:17 2020-05-02 12:54:12 Office Visit Kristal [facility] [place] 1.2.840.114 350.1.13.10 4.2.7.2.686 [id number] [facility] 2020-03-16 14:45:00 2020-03-16 14:45:00 Outpatient R KHANH GIRALDO [facility] [id number] [facility] 2020-03-16 00:00:00 2020-03-16 00:00:00 Orders Only Doctor Unassigned, [place] [facility] 1.2.840.114 350.1.13.10 4.2.7.2.686 [id number] [facility]
[2025-04-30 14:18] LABS: Influenza A Ag Negative; Influenza B Ag Negative; SARS-CoV-2 Antigen Rapid Res Negative (Negative)
[2025-04-30] MEDS ORDERED: HYDROCODONE/APAP 5/325 MG TAB ONE (14:23)
[2025-04-30] MEDS ORDERED: KETOROLAC 30 MG/ML INJ ONE (14:23)
--- NOTE | 2025-04-30 15:01 | EDPHYS ---
Physician Documentation [facility] Name: Sunni Nava Age: 74 yrs Sex: Female : 1950 Arrival Date: 04/30/2025 Time: 13:13 Bed 10 Private MD: ED Physician Ramiro Cotton HPI: 04/30 16:38 This 74 yrs old Female presents to ER via Ambulatory with complaints of Flu dr5 Symptoms. 16:38 Onset: The symptoms/episode began/occurred 2 day(s) ago. Patient is a 71-year-old dr5 female with history of hypertension, anemia, hyperlipidemia, thyroid disease, depression coming in with 2 days of headache and generalized fatigue. Patient reports that she had COVID recently and has not completely recovered since then. Patient denies fever, cough, congestion, chest pain, abdominal pain, nausea, vomiting, diarrhea.. Historical: - Allergies: 13:41 No Known Allergies; aa5 - Home Meds: 13:41 escitalopram, nabumetone, omeprazole, ferrous sulfate, losartan, rosuvastatin, aa5 levothyroxine, pioglitazone [Active]; - PMHx: 13:41 Hypertensive disorder; Anemia; Hypercholesterolemia; Thyroid Disease; Depressive aa5 disorder; Acid Reflux; Arthritis; - PSHx: 13:44 section; aa5 - Immunization history:: Adult Immunizations unknown. - Infectious Disease History:: Denies. - Social history:: Smoking status: Patient denies any tobacco usage or history of. ROS: 16:38 Constitutional: as per hpi dr5 Exam: 16:38 Constitutional: This is a well developed, well nourished patient who is awake, alert, dr5 and in no acute distress. Head/Face: Normocephalic, atraumatic. Eyes: Pupils equal round and reactive to light, extra-ocular motions intact. Lids and lashes normal. Conjunctiva and sclera are non-icteric and not injected. Cornea within normal limits. Periorbital areas with no swelling, redness, or edema. Neck: Trachea midline, no thyromegaly or masses palpated, and no cervical lymphadenopathy. Supple, full range of motion without nuchal rigidity, or vertebral point tenderness. No Meningismus. Chest/axilla: Normal chest wall appearance and motion. Nontender with no deformity. No lesions are appreciated. Cardiovascular: Regular rate and rhythm with a normal S1 and S2. Normal PMI, no JVD. No pulse deficits. Respiratory: Lungs have equal breath sounds bilaterally, clear to auscultation. No rales, rhonchi or wheezes noted. No increased work of breathing, no retractions or nasal flaring. Back: No spinal tenderness. No costovertebral tenderness. Full range of motion. Skin: Warm, dry with normal turgor. Normal color with no rashes, no lesions, and no evidence of cellulitis. MS/ Extremity: Pulses equal, no cyanosis. Neurovascular intact. Full, normal range of motion. Neuro: Awake and alert, GCS 15, oriented to person, place, time, and situation. Cranial nerves II-XII grossly intact. Motor strength 5/5 in all extremities. Sensory grossly intact. Cerebellar exam normal. Normal gait. Vital Signs: 13:39 BP 164 / 64; Pulse 70; Resp 18 S; Temp 98.3(O); Pulse Ox 96% on R/A; Height 5 ft. 7 in. aa5 (R); 15:22 BP 152 / 80; Pulse 71; Resp 15; Pulse Ox 97% on R/A; Pain 0/10; cm10 15:22 Pain Scale: Adult cm10 MDM: 13:21 Medical Screening Exam initiated dr5 16:38 Differential diagnosis: viral Infection, URI, COVID, flu, strep. Data reviewed: vital dr5 signs, nurses notes, lab test result(s), Flu: negative COVID-negative, strep negative. Consideration of Admission/Observation Escalation of care including admission/observation considered. Admission considered patient found be tachycardic, febrile, or hypoxic. I considered the following discharge prescriptions or medication management in the emergency department I discussed and recommended Over The Counter medications, Medications were administered in the Emergency Department. See MAR. Care significantly affected by the following chronic conditions: Hypertension, anemia, hyperlipidemia, thyroid disease, depression. Care significantly affected by the following Social Determinants of Health: Poor access to healthcare and/or lack of insurance, Poor access to transportation, Problems related to employment. Counseling: I had a detailed discussion with the patient and/or guardian regarding the historical points, exam findings, and any diagnostic results supporting the discharge/admit diagnosis, the presence of at least one elevated blood pressure reading (>120/80) during this emergency department visit, lab results, the need for outpatient follow up, for definitive care, a family practitioner. Medication response: Toradol markedly relieved the patient's pain, [place]. Response to treatment: the patient's symptoms have markedly improved after treatment. Special discussion: I have referred the patient to see his PCP for further evaluation of high blood pressure. I discussed with the patient/guardian in detail that at this point there is no indication for admission to the hospital. It is understood, however, that if the symptoms persist or worsen the patient needs to return immediately for re-evaluation. Based on the history and exam findings, there is no indication for further emergent testing or inpatient evaluation. I discussed with the patient/guardian the need to see the primary care provider for further evaluation of the symptoms. ED course: Patient reports he is much better. Vital signs are stable. Will have patient follow primary care doctor. All questions. Strict ER precautions given. Recommended increase hydration alternate Tylenol Motrin as needed for pain.. 04/30 13:21 Order name: COVID-19 Ag + Flu A+B Ag; Complete Time: 14:24 dr5 04/30 13:21 Order name: Group A Streptococcus Rapid; Complete Time: 14:16 dr5 04/30 14:12 Order name: Throat Culture EDMS Administered Medications: 14:38 Drug: Ketorolac IM 30 mg IM once Route: IM; Site: left gluteus; cm10 15:23 Follow up: Response: No adverse reaction cm10 14:38 Drug: HYDROcodone-acetaminophen PO 5 mg-325 mg 2 tabs PO once Route: PO; cm10 15:23 Follow up: Response: No adverse reaction cm10 Disposition Summary: 04/30/25 15:01 Discharge Ordered Notes: Location: Home dr5 Condition: Stable dr5 Diagnosis - Acute upper respiratory infection, unspecified dr5 Followup: dr5 - With: Emergency Department - When: As needed - Reason: Worsening of condition Followup: dr5 - With: Private Physician - When: 1 - 2 days - Reason: Recheck today's complaints, Continuance of care, Re-evaluation by your physician Discharge Instructions: - Discharge Summary Sheet dr5 - Upper Respiratory Infection, Adult dr5 Forms: - Medication Reconciliation Form dr5 - Patient Portal Instructions dr5 - Leadership Thank You Letter dr5 Prescriptions: - Bromfed DM 2-30-10 mg/5 mL Oral syrup - administer 10 milliliter ORAL route every 8 hours as needed for allergy dr5 symptoms; 240 milliliter; Refills: 0, Product Selection Permitted Addendum: 05/03/2025 07:42 Co-signature as Attending Physician, Ramiro Cotton MD I reviewed the patient's care r n provided by the Advanced Practice Provider and agree with the diagnosis and treatment plan. Signatures: Dispatcher [employer] EDMS Ramiro Cotton MD MD rn Calderon, Audri, RN RN aa5 Lorie Dasilva RN RN cm10 Nahum Mead, VOCAL MUSIC INSTRUCTOR-C VOCAL MUSIC INSTRUCTOR-Cdr5 Corrections: (The following items were deleted from the chart) 04/30 13:22 13:22 COVID-19 Ag + Flu A+B Ag+I.LAB.BRZ ordered. EDMS EDMS 13: 13:22 Group A Streptococcus Rapid Sc+I.LAB.BRZ ordered. EDMS EDMS
--- NOTE | 2025-04-30 15:01 | ER ---
Nurse's Notes [facility] Name: Sunni Nava Age: 74 yrs Sex: Female : 1950 Arrival Date: 04/30/2025 Time: 13:13 Bed 10 Private MD: Diagnosis: Acute upper respiratory infection, unspecified Presentation: 04/30 13:39 Chief complaint: Patient states: "I just had covid about 1 or 2 weeks ago and today I aa5 feel sick again". Pt c/o headache and chills. Coronavirus screen: chills. Ebola Screen: Patient denies travel to an Ebola-affected area in the 21 days before illness onset. Initial Sepsis Screen: Does the patient meet any 2 criteria? No. Patient's initial sepsis screen is negative. Does the patient have a suspected source of infection? No. Patient's initial sepsis screen is negative. Risk Assessment: Do you want to hurt yourself or someone else? Patient reports no desire to harm self or others. Onset of symptoms was April 30, 2025. 13:39 Method Of Arrival: Ambulatory aa5 13:39 Acuity: KIN 3 aa5 Triage Assessment: 15:24 General: Appears in no apparent distress. comfortable, Behavior is calm, cooperative. cm10 Historical: - Allergies: 13:41 No Known Allergies; aa5 - Home Meds: 13:41 escitalopram, nabumetone, omeprazole, ferrous sulfate, losartan, rosuvastatin, aa5 levothyroxine, pioglitazone [Active]; - PMHx: 13:41 Hypertensive disorder; Anemia; Hypercholesterolemia; Thyroid Disease; Depressive aa5 disorder; Acid Reflux; Arthritis; - PSHx: 13:44 section; aa5 - Immunization history:: Adult Immunizations unknown. - Infectious Disease History:: Denies. - Social history:: Smoking status: Patient denies any tobacco usage or history of. Screenin:23 [facility] ED Fall Risk Assessment (Adult) History of falling in the last 3 months, cm10 including since admission No falls in past 3 months (0 pts) Confusion or Disorientation No (0 pts) Intoxicated or Sedated No (0 pts) Impaired Gait No (0 pts) Mobility Assist Device Used No (0 pt) Altered Elimination No (0 pt) Score/Fall Risk Level 0 - 2 = Low Risk Oriented to surroundings, Maintained a safe environment, Hourly rounding (assess needs \\T\\ fall precautionary measures) done. Abuse screen: Denies threats or abuse. Denies injuries from another. Nutritional screening: No deficits noted. Tuberculosis screening: No symptoms or risk factors identified. Assessment: 15:23 Reassessment: Patient appears in no apparent distress at this time. Patient and/or cm10 family updated on plan of care and expected duration. Pain level reassessed. Patient is alert, oriented x 3, equal unlabored respirations, skin warm/dry/pink. Pain: Denies pain. Neuro: No deficits noted. Level of Consciousness is awake, alert, obeys commands, Oriented to person, place, time, situation, Appropriate for age. Respiratory: No deficits noted. Reports cough that is Airway is patent Respiratory effort is even, unlabored, Respiratory pattern is regular, symmetrical. Vital Signs: 13:39 BP 164 / 64; Pulse 70; Resp 18 S; Temp 98.3(O); Pulse Ox 96% on R/A; Height 5 ft. 7 in. aa5 (R); 15:22 BP 152 / 80; Pulse 71; Resp 15; Pulse Ox 97% on R/A; Pain 0/10; cm10 15:22 Pain Scale: Adult cm10 ED Course: 13:16 Patient arrived in ED. im 13:21 Nahum Mead F[facility]-C [facility] 13:21 Ramiro Cotton MD is Attending Physician. dr5 13:39 Arm band placed on. aa5 13:40 Triage completed. aa5 15:01 Ramiro Cotton MD is Referral Physician. dr5 15:23 Patient has correct armband on for positive identification. Provided Education on: cm10 follow-up instructions. 15:23 No provider procedures requiring assistance completed. Patient did not have IV access cm10 during this emergency room visit. Administered Medications: 14:38 Drug: Ketorolac IM 30 mg IM once Route: IM; Site: left gluteus; cm10 15:23 Follow up: Response: No adverse reaction cm10 14:38 Drug: HYDROcodone-acetaminophen PO 5 mg-325 mg 2 tabs PO once Route: PO; cm10 15:23 Follow up: Response: No adverse reaction cm10 Medication: 15:23 VIS not applicable for this client. cm10 Outcome: 15:01 Discharge ordered by . dr5 15:24 Discharged to home ambulatory, cm10 15:24 Condition: good 15:24 Discharge instructions given to patient, Instructed on discharge instructions, follow up and referral plans. medication usage, Demonstrated understanding of instructions, follow-up care, medications, Prescriptions given X 1, 15:24 Patient left the ED. cm10 Signatures: Fabby Granados, RN RN aa5 Delilah Lainez Clarissa, RN RN cm10 Nahum Mead, CONCRETE ROD BUSTER-C CONCRETE ROD BUSTER-Cdr5 Corrections: (The following items were deleted from the chart) 15:23 15:22 BP 152 / 80; Pulse 71bpm; Resp 15bpm; Pulse Ox 97% RA; cm10 cm10
[2025-04-30 15:30] VITALS: TEMP 98.3
[2025-04-30 15:32] VITALS: BP 152/80; O2SAT 97
== END 2025-04-30 15:24 | disposition home or self-care (01) ==
LOC: ER 13:13
DX: J06.9 Acute upper respiratory infection, unspecified (principal); Z11.52 Encounter for screening for COVID-19
CPT/HCPCS: 36415; 87070; 87428; 96372; 99284